=== PATIENT | female | born 2000 | race Caucasian/White ===

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

== ENCOUNTER 2018-02-06 23:18 | Emergency (ER) | payer MEDICAID ==
[2018-02-06 23:52] VITALS: BP 146/97; PULSE 111; O2SAT 100
--- NOTE | 2018-02-06 23:53 | ERPHSYRPT ---
- History of Present Illness Time Seen by Provider: 02/06/18 23:48 Source: patient, other (friend) Exam Limitations: no limitations Physician History: The patient is a at 8 weeks complaining of mild abdominal cramping on the left side with some vaginal bleeding yesterday and passing of a few clots today. She denies nausea or vomiting. She has had OB care with an ultrasound done on 01/17/18 and another one done on 02/02/18. Tonight she is in no distress. Timing/Duration: yesterday, gradual onset, worse Activites at Onset: none Quality: cramping Onset Location: pelvic pain Pain Radiation: none Severity of Pain-Max: mild Severity of Pain-Current: mild Sexual intercourse history: other () Modifying Factors: Improves With: nothing Associated Symptoms: , vaginal discharge Allergies/Adverse Reactions: codeine Allergy (Mild, Verified 02/06/18 23:52) Swelling Home Medications: No Reportable Medications [No Reported Medications] 02/06/18 [History] Hx Tetanus, Diphtheria Vaccination/Date Given: Yes Hx Influenza Vaccination/Date Given: Yes Hx Pneumococcal Vaccination/Date Given: No - Review of Systems Constitutional: No Fever, No Chills Eyes: No Symptoms Ears, Nose, & Throat: No Symptoms Respiratory: No Cough, No Dyspnea Cardiac: No Chest Pain, No Edema, No Syncope Abdominal/Gastrointestinal: Abdominal Pain, No Nausea, No Vomiting, No Diarrhea Genitourinary Symptoms: Vaginal Bleeding, No Dysuria Musculoskeletal: No Back Pain, No Neck Pain Skin: No Rash Neurological: No Dizziness, No Focal Weakness, No Sensory Changes Psychological: No Symptoms Endocrine: No Symptoms Hematologic/Lymphatic: No Symptoms Immunological/Allergic: No Symptoms All Other Systems: Reviewed and Negative - Past Medical History Pertinent Past Medical History: No Neurological History: No Pertinent History ENT History: No Pertinent History Cardiac History: No Pertinent History Respiratory History: No Pertinent History Endocrine Medical History: No Pertinent History Musculoskeletal History: Arthritis GI Medical History: No Pertinent History History: No Pertinent History Psycho-Social History: No Pertinent History Female Reproductive Disorders: No Pertinent History Other Medical History: IRREGULAR PERIODS STARTED ON CONTROL TO HELP CONTROL THEM - Past Surgical History Past Surgical History: Yes Neuro Surgical History: No Pertinent History Cardiac: No Pertinent History Respiratory: No Pertinent History Gastrointestinal: No Pertinent History Genitourinary: No Pertinent History Musculoskeletal: No Pertinent History Female Surgical History: No Pertinent History Other Surgical History: TUBES AN INFANT. TONSILS ET ADNOIDS - Social History Smoking Status: Current every day smoker How long have you smoked: 3 years Exposure to second hand smoke: No Drug Use: none Patient Lives Alone: No - Physical Exam General Appearance: no apparent distress, alert Eye Exam: PERRL/EOMI, eyes nml inspection Ears, Nose, Throat Exam: normal ENT inspection, TMs normal, pharynx normal, moist mucous membranes Neck Exam: normal inspection, non-tender, supple, full range of motion Respiratory Exam: normal breath sounds, lungs clear, No respiratory distress Cardiovascular Exam: regular rate/rhythm, normal heart sounds, normal peripheral pulses Gastrointestinal/Abdomen Exam: soft, No tenderness, No mass Pelvic Exam: not done Rectal Exam: not done Back Exam: normal inspection, normal range of motion, No CVA tenderness, No vertebral tenderness Extremity Exam: normal inspection, normal range of motion, pelvis stable Neurologic Exam: alert, oriented x 3, cooperative, manager meeting II-XII nml as tested, normal mood/affect, sensation nml, No motor deficits Skin Exam: normal color, warm, dry Lymphatic Exam: No adenopathy SpO2 Interpretation: normal Oxygen Delivery: Room Air - Progress Progress Note: 02/06/18 23:52 I reviewed the transvaginal ultrasound report dated 02/02/18. In that report there is mention of the review his ultrasound done on 01/17/18. On 01/17/18 the gestational sac was consistent with the date of 5 weeks 5 days. On 02/02/18 the gestational sac was consistent with the date of 6 weeks 1 day, with no significant change in the size of the gestational sac. No heart beat was seen. The patient was not aware of this finding. This was an intrauterine finding. Counseled pt/family regarding: diagnosis, need for follow-up, rad results - Departure Time of Disposition: 23:53 Departure Disposition: Home Clinical Impression: Threatened spontaneous Condition: Stable Critical Care Time: No Referrals: DARLINE CHINO MD [Primary Care Provider] - Additional Instructions: Based upon the ultrasound findings of 01/17/18 and 02/02/18 and the clinical findings today of passage of blood clots, U likely are in the process of undergoing a spontaneous . A quantitative hCG was performed tonight. Call Dr. Chino in the morning. Take Tylenol as needed for pain.
[2018-02-07 01:12] LABS: Appearance HAZY (CLEAR); Bilirubin NEGATIVE (NEGATIVE); Blood 250 Ery/ul (0-5); Glucose NEGATIVE (NEGATIVE); Ketones NEGATIVE (NEGATIVE); Leukocyte Esterase 1+ (NEGATIVE); Nitrite NEGATIVE (NEGATIVE); Protein,Urine Dip TRACE (Negative); Urobilinogen NORMAL mg/dL (0-1)
[2018-02-07 01:13] LABS: Bacteria FEW /HPF (NEGATIVE); Epithelial Cells MODERATE /HPF (FEW); RBC 25-50 /HPF (0-2)
== END 2018-02-07 00:55 | disposition home or self-care (01) ==
LOC: ED 23:18
DX: O20.0 Threatened abortion (principal); Z3A.01 Less than 8 weeks gestation of pregnancy
CPT/HCPCS: 81000; 87086; 99283

== ENCOUNTER 2018-02-28 22:19 | Emergency (ER) | payer OTHER ==
[2018-02-28 22:37] VITALS: BP 153/96; PULSE 80; O2SAT 99
--- NOTE | 2018-02-28 22:50 | ERPHSYRPT ---
- History of Present Illness Time Seen by Provider: 02/28/18 22:41 Source: patient Exam Limitations: no limitations Patient Subjective Stated Complaint: pt states she has been haivng mid to lower back pain for 3-4 days. denies radiation to either leg. Triage Nursing Assessment: pt alert and oriented. answers qeustions approp. pt ambulatory with steady gait noted. respirations nonlabored with lungs cta. skin pink warm and dry. pt denies numbness and tingling in ext at this time. strength bilat wnl. Physician History: 17-year-old white female with history of irregular menstrual periods, anemia Patient arrives with complaint of pain in the low lumbar region midline symptoms for 3-4 days denies obvious injuries. She states she had a fever yesterday. No nausea no vomiting no urinary symptoms. Patient did have a recent miscarriage 3 weeks ago. Past medical history includes irregular periods, anemia. Past surgical history includes , tonsillectomy and myringotomy tubes Timing/Duration: day(s) (3-4 days) Severity: moderate Modifying Factors: Improves With: movement Associated Symptoms: fever (fever yesterday), No nausea, No vomiting, No abdominal pain, No shortness of breath, No heartburn, No diaphoresis, No cough, No chills, No chest pain, No headaches, No loss of appetite, No malaise, No rash , No syncope, No seizure, No weakness Allergies/Adverse Reactions: codeine Allergy (Severe, Verified 02/28/18 22:41) Difficulty Breathing Hx Tetanus, Diphtheria Vaccination/Date Given: Yes Hx Influenza Vaccination/Date Given: Yes Hx Pneumococcal Vaccination/Date Given: No Immunizations Up to Date: Yes - Review of Systems Constitutional: Fever (fever yesterday), No Chills Eyes: No Symptoms Ears, Nose, & Throat: No Symptoms Respiratory: No Cough, No Dyspnea Cardiac: No Chest Pain, No Edema, No Syncope Abdominal/Gastrointestinal: No Abdominal Pain, No Nausea, No Vomiting, No Diarrhea Genitourinary Symptoms: No Dysuria Musculoskeletal: Back Pain Skin: No Rash Neurological: No Dizziness, No Focal Weakness, No Sensory Changes Psychological: No Symptoms Endocrine: No Symptoms All Other Systems: Reviewed and Negative - Past Medical History Pertinent Past Medical History: No Neurological History: No Pertinent History ENT History: No Pertinent History Cardiac History: No Pertinent History Respiratory History: No Pertinent History Endocrine Medical History: No Pertinent History Musculoskeletal History: No Pertinent History GI Medical History: No Pertinent History History: No Pertinent History Psycho-Social History: No Pertinent History Female Reproductive Disorders: No Pertinent History Other Medical History: IRREGULAR PERIODS STARTED ON CONTROL TO HELP CONTROL THEM, anemia - Past Surgical History Past Surgical History: Yes Neuro Surgical History: No Pertinent History Cardiac: No Pertinent History Respiratory: No Pertinent History Gastrointestinal: No Pertinent History Genitourinary: No Pertinent History Musculoskeletal: No Pertinent History Female Surgical History: No Pertinent History Other Surgical History: TUBES AN . TONSILS ET ADNOIDS - Social History Smoking Status: Current every day smoker How long have you smoked: 3 years Exposure to second hand smoke: Yes Drug Use: none Patient Lives Alone: No - Female History Hx Last Menstrual Period: none since miscarriage approx 3 weeks ago Hx Now: No - Nursing Vital Signs Nursing Vital Signs: Initial Vital Signs Temperature 98.2 F 02/28/18 22:27 Pulse Rate 80 02/28/18 22:27 Respiratory Rate 18 02/28/18 22:27 Blood Pressure 153/96 02/28/18 22:27 O2 Sat by Pulse Oximetry 99 02/28/18 22:27 Pain Scale Pain Intensity 7 - Physical Exam General Appearance: no apparent distress, alert Eye Exam: PERRL/EOMI, eyes nml inspection Ears, Nose, Throat Exam: normal ENT inspection, TMs normal, pharynx normal, moist mucous membranes Neck Exam: normal inspection, non-tender, supple, full range of motion Respiratory Exam: normal breath sounds, lungs clear, No respiratory distress Cardiovascular Exam: regular rate/rhythm, normal heart sounds, normal peripheral pulses Extremity Exam: normal range of motion, tenderness (mild tenderness with palpation over vertebral column lumbar region full range of motion without pain) Neurologic Exam: alert, oriented x 3, cooperative, wing commander II-XII nml as tested, normal mood/affect, nml cerebellar function, nml station & gait, sensation nml, No motor deficits Skin Exam: normal color, warm, dry, No rash SpO2 Interpretation: normal (99%) SpO2: 99 Oxygen Delivery: Room Air - Course Nursing assessment & vital signs reviewed: Yes Ordered Tests: Active Orders 24 hr Category Date Time Status HCG,QUALITATIVE URINE Stat Lab 02/28/18 22:37 Completed UA W/ MICROSCOPIC Stat Lab 02/28/18 22:37 Completed Medication Summary Discontinued Medications Generic Name Dose Route Start Last Admin Trade Name [place] PRN Reason Stop Dose Admin Ketorolac Tromethamine 60 mg 02/28/18 23:30 Toradol 30 Mg Injection IM 02/28/18 23:31 STAT ONE Lab/Rad Data: Laboratory Results 02/28/18 02/28/18 Range/Units 22:37 22:37 Ur Collection Type CLEAN CATCH Urine Color YELLOW (YELLOW) Urine Appearance SLIGHTLY CLOUDY (CLEAR) Urine pH 6.5 (5-6) Ur Specific [place] 1.020 (1.005-1.025) Urine Protein NEGATIVE (Negative) Urine Ketones NEGATIVE (NEGATIVE) Urine Blood NEGATIVE (0-5) Jose Armando/ul Urine Nitrite NEGATIVE (NEGATIVE) Urine Bilirubin NEGATIVE (NEGATIVE) Urine Urobilinogen 1 (0-1) mg/dL Ur Leukocyte Esterase 1+ (NEGATIVE) Urine Microscopic WBC 2-5 (0-5) /HPF Ur Epithelial Cells MODERATE (FEW) /HPF Amorphous Crystals FEW (NEGATIVE) /HPF Urine Bacteria FEW (NEGATIVE) /HPF Urine Mucus SLIGHT (NEGATIVE) /HPF Urine Culture Reflexed NO (NO) Urine Glucose NEGATIVE (NEGATIVE) mg/dL Urine HCG, Qual NEGATIVE (Negative) Specimen Received 02/28/18 2300 - Progress Progress: improved Progress Note: 02/28/18 23:55 17-year-old white female arrives with complaint of midline low back pain for 3- 4 days. She does not have any obvious injury urine is normal hCG is negative. Patient with normal neurologic exam and full range of motion to extremities. Will go ahead and place patient on Flexeril 10 mg orally 3 times a day #15. Patient to take Tylenol every 4 hours or Motrin every 6 hours as needed for pain. 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 - Departure Time of Disposition: 23:56 Departure Disposition: Home Clinical Impression: Back pain Qualifiers: Back pain location: low back pain Chronicity: acute Back pain laterality: midline Sciatica presence: without sciatica Qualified Code(s): M54.5 - Low back pain Lumbar strain Qualifiers: Encounter type: initial encounter Qualified Code(s): S39.012A - Strain of muscle, fascia and tendon of lower back, initial encounter Condition: Fair Critical Care Time: No Referrals: DARLINE CHINO MD [Primary Care Provider] - Instructions: Low Back Pain (DC) Additional Instructions: Return home. Flexeril as prescribed. Tylenol every 4 hours or Motrin every 6 hours as needed for pain. Follow-up with your family doctor if symptoms are worse, no better in 48 - 72 hours, or persist longer than one week. Return for acute distress or for severe symptoms. Prescriptions: Cyclobenzaprine HCl [Flexeril] 10 mg PO TID #15 tablet
[2018-02-28 23:44] LABS: Amourphous Crystal FEW /HPF (NEGATIVE); Appearance SLIGHTLY CLOUDY (CLEAR); Bacteria FEW /HPF (NEGATIVE); Bilirubin NEGATIVE (NEGATIVE); Blood NEGATIVE Ery/ul (0-5); Epithelial Cells MODERATE /HPF (FEW); Glucose NEGATIVE (NEGATIVE); Ketones NEGATIVE (NEGATIVE); Leukocyte Esterase 1+ (NEGATIVE); Mucus SLIGHT /HPF (NEGATIVE); Nitrite NEGATIVE (NEGATIVE); Ph 6.5 (5-6); Protein,Urine Dip NEGATIVE (Negative); Urobilinogen 1 mg/dL (0-1)
[2018-02-28] MEDS ORDERED: TORAdol 30 mg Injection ONE (23:54)
[2018-02-28] MEDS ORDERED: Cyclobenzaprine 10 MG ONE (23:57)
[2018-02-28] MEDS: Cyclobenzaprine 10 MG PO ONE (23:58)
[2018-02-28] MEDS: TORAdol 30 mg Injection IM ONE (23:59)
== END 2018-03-01 00:21 | disposition home or self-care (01) ==
LOC: ED 22:19
DX: S39.012A Strain of muscle, fascia and tendon of lower back, initial encounter (principal); M54.5 Low back pain; Z72.0 Tobacco use; X50.0XXA Overexertion from strenuous movement or load, initial encounter; X50.3XXA Overexertion from repetitive movements, initial encounter; Y92.210 Daycare center as the place of occurrence of the external cause
CPT/HCPCS: 81000; 84703; 96372; 99284; J1885; A9270-GY

== ENCOUNTER 2018-03-03 00:29 | Emergency (ER) | payer MEDICAID, OTHER ==
[2018-03-03 00:45] VITALS: O2SAT 100
--- NOTE | 2018-03-03 01:05 | ERPHSYRPT ---
- History of Present Illness Time Seen by Provider: 03/03/18 01:00 Source: patient Exam Limitations: no limitations Patient Subjective Stated Complaint: pain in middle of back that radiates to the right side Triage Nursing Assessment: Pt c/o pain that is in the middle of ther back that radiates to the right side, reports passing out twice earlier today due to the pain, was in this ED on 03/01/2018 for the same problem, miscarriage earlier this month, reports that she is anemic Physician History: 17 y/o white female presents with passing out twice at work in the last 24 hours due to pain in her back that radiates to the right side. pt had a miscarriage earlier this month. pt states she is chronically anemic. pt here on 03/01/18 dx and tx for back pain with flexeril. pt stated flexeril making her vomit. pt states she could not get into her pcp for a month. told to go to ER if sx worsens. Timing/Duration: yesterday Method of Injury: other (no injury.) Back Pain Location: T-spine Severity of Pain-Max: mild Severity of Pain-Current: mild Modifying Factors: Improves With: other (laying flat) Associated Symptoms: nausea, No fever, No loss of bowel control, No light- headedness, No dizziness Previous symptoms: same symptoms as today Allergies/Adverse Reactions: codeine Allergy (Severe, Verified 03/03/18 00:45) Difficulty Breathing Penicillins Allergy (Verified 03/03/18 00:45) Hx Tetanus, Diphtheria Vaccination/Date Given: Yes Hx Influenza Vaccination/Date Given: Yes Hx Pneumococcal Vaccination/Date Given: No - Review of Systems Constitutional: No Symptoms, Fever, Chills Eyes: No Symptoms Ears, Nose, & Throat: No Symptoms Respiratory: No Symptoms, No Cough, No Dyspnea, No Stridor, No Wheezing Cardiac: No Symptoms Abdominal/Gastrointestinal: No Symptoms, Nausea, Vomiting, No Abdominal Pain, No Diarrhea Genitourinary Symptoms: No Symptoms, No Dysuria, No Frequency, No Hematuria Musculoskeletal: Back Pain, No Neck Pain, No Fall, No Injury Skin: No Symptoms Neurological: No Symptoms, Other (passed out twice at work), No Dizziness, No Focal Weakness, No Gait Changes Psychological: No Symptoms Endocrine: No Symptoms Hematologic/Lymphatic: No Symptoms Immunological/Allergic: No Symptoms All Other Systems: Reviewed and Negative - Past Medical History Pertinent Past Medical History: No Neurological History: No Pertinent History ENT History: No Pertinent History Cardiac History: No Pertinent History Respiratory History: No Pertinent History Endocrine Medical History: No Pertinent History Musculoskeletal History: No Pertinent History GI Medical History: No Pertinent History History: No Pertinent History Psycho-Social History: No Pertinent History Female Reproductive Disorders: No Pertinent History Other Medical History: IRREGULAR PERIODS STARTED ON CONTROL TO HELP CONTROL THEM, anemia - Past Surgical History Past Surgical History: Yes Neuro Surgical History: No Pertinent History Cardiac: No Pertinent History Respiratory: No Pertinent History Gastrointestinal: No Pertinent History Genitourinary: No Pertinent History Musculoskeletal: No Pertinent History Female Surgical History: No Pertinent History Other Surgical History: TUBES AN . TONSILS ET ADNOIDS - Social History Smoking Status: Current every day smoker How long have you smoked: 3 years Exposure to second hand smoke: Yes Drug Use: none Patient Lives Alone: No - Female History Hx Last Menstrual Period: recently miscarried Hx Now: No - Nursing Vital Signs Nursing Vital Signs: Initial Vital Signs Temperature 98.6 F 03/03/18 00:33 Pulse Rate 92 H 03/03/18 00:33 Blood Pressure 137/89 03/03/18 00:33 O2 Sat by Pulse Oximetry 100 03/03/18 00:33 Pain Scale Pain Intensity [Right Medial 9 Back] Pain Intensity 9 - Physical Exam General Appearance: no apparent distress, alert, anxiety Eye Exam: PERRL/EOMI, eyes nml inspection Ears, Nose, Throat Exam: normal ENT inspection Neck Exam: normal inspection, non-tender, supple, full range of motion Respiratory Exam: normal breath sounds, lungs clear, airway intact, No chest tenderness, No respiratory distress Cardiovascular Exam: regular rate/rhythm, normal heart sounds, normal peripheral pulses Gastrointestinal Exam: soft, normal bowel sounds, No tenderness, No guarding, No rebound Pelvic Exam: not done Rectal Exam: deferred Back Exam: normal inspection, normal range of motion, point tenderness, No CVA tenderness, No vertebral tenderness, No muscle spasm Extremity Exam: normal inspection, normal range of motion, pelvis stable Neurologic Exam: alert, oriented x 3, cooperative, 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, normal mood/affect, nml cerebellar function, nml station & gait, sensation nml Skin Exam: normal color, warm, dry Lymphatic Exam: No adenopathy SpO2 Interpretation: normal SpO2: 100 Oxygen Delivery: Room Air - Course Nursing assessment & vital signs reviewed: Yes Ordered Tests: Active Orders 24 hr Category Date Time Status Clean Catch Urine Specimen STAT Care 03/03/18 01:37 Active CULTURE,URINE Routine Lab 03/03/18 01:30 Received UA W/ MICROSCOPIC Stat Lab 03/03/18 01:38 Completed Medication Summary Discontinued Medications Generic Name Dose Route Start Last Admin Trade Name Freq PRN Reason Stop Dose Admin Promethazine HCl 12.5 mg 03/03/18 02:11 03/03/18 02:21 Phenergan 25 Mg PO 03/03/18 02:12 12.5 mg STAT ONE Administration Promethazine HCl Confirm 03/03/18 02:20 Phenergan 25 Mg Administered 03/03/18 02:21 Dose 25 mg .ROUTE .STK-MED ONE Lab/Rad Data: Laboratory Results 03/03/18 Range/Units 01:38 Ur Collection Type VOID Urine Color LT.YELLOW (YELLOW) Urine Appearance HAZY (CLEAR) Urine pH 7.0 (5-6) Ur Specific [place] 1.005 (1.005-1.025) Urine Protein NEGATIVE (Negative) Urine Ketones NEGATIVE (NEGATIVE) Urine Blood NEGATIVE (0-5) Jose Armando/ul Urine Nitrite NEGATIVE (NEGATIVE) Urine Bilirubin NEGATIVE (NEGATIVE) Urine Urobilinogen NORMAL (0-1) mg/dL Ur Leukocyte Esterase 1+ (NEGATIVE) Urine Microscopic WBC 10-15 (0-5) /HPF Ur Epithelial Cells MANY (FEW) /HPF Urine Bacteria MODERATE (NEGATIVE) /HPF Urine Glucose NEGATIVE (NEGATIVE) mg/dL Specimen Received 03/03/18 0230 - Progress Progress: improved, re-examined Progress Note: 03/03/18 03:06 reviewed ua report with pt. pt refusing repeat blood draw Counseled pt/family regarding: lab results, diagnosis, need for follow-up - Departure Time of Disposition: 03:08 Departure Disposition: Home Clinical Impression: UTI (urinary tract infection) Condition: Stable Critical Care Time: No Referrals: DARLINE CHINO MD [Primary Care Provider] - Additional Instructions: drink plenty of fluids. follow up with primary doctor for further management Prescriptions: Promethazine HCl 25 mg [Phenergan 25 mg] 25 mg PO Q8H PRN PRN #10 tablet PRN Reason: Nausea Ciprofloxacin [Cipro 500 MG] 500 mg PO BID #14 tablet
[2018-03-03] MEDS ORDERED: PHENERGAN 25 MG PO ONE (02:11)
[2018-03-03] MEDS ORDERED: PHENERGAN 25 MG ONE (02:20)
[2018-03-03 02:44] LABS: Appearance HAZY (CLEAR); Bilirubin NEGATIVE (NEGATIVE); Blood NEGATIVE Ery/ul (0-5); Glucose NEGATIVE (NEGATIVE); Ketones NEGATIVE (NEGATIVE); Leukocyte Esterase 1+ (NEGATIVE); Nitrite NEGATIVE (NEGATIVE); Protein,Urine Dip NEGATIVE (Negative); Specific Gravity 1.005 (1.005-1.025); Urobilinogen NORMAL mg/dL (0-1)
[2018-03-03 02:45] LABS: Bacteria MODERATE /HPF (NEGATIVE); Epithelial Cells MANY /HPF (FEW)
[2018-03-03] MEDS ORDERED: Cipro 500 MG PO ONE (03:05)
[2018-03-03] MEDS ORDERED: Cipro 500 MG ONE (03:09)
[2018-03-03 03:15] VITALS: BP 142/80; PULSE 65
== END 2018-03-03 03:18 | disposition home or self-care (01) ==
LOC: ED 00:29
DX: N39.0 Urinary tract infection, site not specified (principal)
CPT/HCPCS: 81000; 87086; 99283; A9270-GY

== ENCOUNTER 2018-03-18 21:09 | Emergency (ER) | payer OTHER ==
[2018-03-18 21:26] VITALS: BP 156/93
--- NOTE | 2018-03-18 21:30 | ERPHSYRPT ---
- History of Present Illness Time Seen by Provider: 03/18/18 21:37 Patient Subjective Stated Complaint: pt states that she is suicidal since her miscarriage approximately a "month or two ago". pt states that after her miscarriage that people began starting rumors that she "purposely killed the baby". pt has flat affect. denies having a plan. denies homicidal thoughts. Triage Nursing Assessment: see above Physician History: pt states that she is suicidal since her miscarriage approximately a "month or two ago". pt states that after her miscarriage that people began starting rumors that she "purposely killed the baby". pt has flat affect. denies having a plan. denies homicidal thoughts. Timing/Duration: week(s) Severity of Symptoms-Max: moderate Severity of Symptoms-Current: moderate Context related to: other (recent miscarriage a month ago) Associated Symptoms: depressed, suicidal ideation Previous symptoms: no prior history Allergies/Adverse Reactions: codeine Allergy (Severe, Verified 03/03/18 00:45) Difficulty Breathing Penicillins Allergy (Verified 03/03/18 00:45) Hx Tetanus, Diphtheria Vaccination/Date Given: Yes Hx Influenza Vaccination/Date Given: Yes Hx Pneumococcal Vaccination/Date Given: No Immunizations Up to Date: Yes - Past Medical History Pertinent Past Medical History: No Neurological History: No Pertinent History ENT History: No Pertinent History Cardiac History: No Pertinent History Respiratory History: No Pertinent History Endocrine Medical History: No Pertinent History Musculoskeletal History: No Pertinent History GI Medical History: No Pertinent History History: No Pertinent History Psycho-Social History: No Pertinent History Female Reproductive Disorders: No Pertinent History Other Medical History: IRREGULAR PERIODS STARTED ON CONTROL TO HELP CONTROL THEM, anemia, UTI - Past Surgical History Past Surgical History: Yes Neuro Surgical History: No Pertinent History Cardiac: No Pertinent History Respiratory: No Pertinent History Gastrointestinal: No Pertinent History Genitourinary: No Pertinent History Musculoskeletal: No Pertinent History Female Surgical History: No Pertinent History Other Surgical History: TUBES AN . TONSILS ET ADNOIDS - Social History Smoking Status: Current every day smoker How long have you smoked: 3 years Exposure to second hand smoke: Yes Drug Use: none Patient Lives Alone: No - Female History Hx Last Menstrual Period: 03/09/18 Hx Now: No - Review of Systems Constitutional: No Fever, No Chills Eyes: No Symptoms Ears, Nose, & Throat: No Symptoms Respiratory: No Cough, No Dyspnea Cardiac: No Chest Pain, No Edema, No Syncope Abdominal/Gastrointestinal: No Abdominal Pain, No Nausea, No Vomiting, No Diarrhea Genitourinary Symptoms: No Dysuria Musculoskeletal: No Back Pain, No Neck Pain Skin: No Rash Neurological: No Dizziness, No Focal Weakness, No Sensory Changes Psychological: No Symptoms Endocrine: No Symptoms All Other Systems: Reviewed and Negative - Nursing Vital Signs Nursing Vital Signs: Initial Vital Signs Temperature 99.0 F 03/18/18 21:09 Pulse Rate 112 H 03/18/18 21:09 Respiratory Rate 16 03/18/18 21:09 Blood Pressure 156/93 03/18/18 21:09 O2 Sat by Pulse Oximetry 99 03/18/18 21:09 Pain Scale Pain Intensity 0 - Physical Exam General Appearance: no apparent distress Eyes, Ears, Nose, Throat Exam: normal ENT inspection, moist mucous membranes Neck Exam: normal inspection, non-tender, supple Respiratory Exam: normal breath sounds, lungs clear, No respiratory distress Cardiovascular Exam: regular rate/rhythm, No edema Gastrointestinal/Abdominal Exam: soft, No tenderness, No distention Extremities Exam: normal inspection, normal range of motion, No evidence of injury, No edema Current Suicidality: has suicide plan Neurological Exam: alert, 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, oriented x 3, depressed affect, flat Appearance: impaired insight Behavior/Eye Contact/Speech: alert & cooperative Skin Exam: normal color, warm, dry, No rash SpO2: 99 Oxygen Delivery: Room Air - Course Nursing assessment & vital signs reviewed: Yes Ordered Tests: Active Orders 24 hr Category Date Time Status Psychiatric Evaluation STAT Care 03/18/18 21:28 Active ACETAMINOPHEN Stat Lab 03/18/18 22:07 Completed CBC W DIFF Stat Lab 03/18/18 22:07 Completed CMP Stat Lab 03/18/18 22:07 Completed ETHYL ALCOHOL Stat Lab 03/18/18 22:07 Completed HCG QUALITATIVE,SERUM Stat Lab 03/18/18 22:07 Completed SALICYLATE Stat Lab 03/18/18 22:07 Completed Urine Triage Profile Stat Lab 03/18/18 22:34 Completed Lab/Rad Data: Laboratory Result Diagrams 03/18/18 22:07 03/18/18 22:07 Laboratory Results 03/18/18 03/18/18 03/18/18 Range/Units 22:34 22:07 22:07 WBC (4.0-10.5) K/mm3 RBC (4.1-5.4) M/mm3 Hgb (12.0-16.0) gm/dl Hct (35-47) % MCV (78-100) fl MCH (26-32) pg MCHC (32-36) g/dl RDW (11.5-14.0) % Plt Count (150-450) K/mm3 MPV (6-9.5) fl Gran % (36.0-66.0) % Eos # (Auto) (0-0.5) Absolute Lymphs (auto) (1.0-4.6) Absolute Monos (auto) (0.0-1.3) Lymphocytes % (24.0-44.0) % Monocytes % (0.0-12.0) % Eosinophils % (0.00-5.0) % Basophils % (0.0-0.4) % Absolute Granulocytes (1.4-6.9) Basophils # (0-0.4) Sodium 139 (137-145) mmol/L Potassium 4.2 (3.5-5.1) mmol/L Chloride 105 (98-107) mmol/L Carbon Dioxide 24 (22-30) mmol/L Anion Gap 14.5 (5-15) MEQ/L BUN 10 (7-17) mg/dL Creatinine 0.66 (0.52-1.04) mg/dL Estimated GFR > 60.0 ML/MIN Glucose 101 (74-106) mg/dL Calcium 9.5 (8.4-10.2) mg/dL Total Bilirubin 0.20 (0.2-1.3) mg/dL AST 15 (14-36) U/L ALT 12 (0-35) U/L Alkaline Phosphatase 85 (38-126) U/L Serum Total Protein 7.6 (6.3-8.2) g/dL Albumin 4.4 (3.5-5.0) g/dL Serum , Qual NEGATIVE (Negative) Salicylates < 1.0 L (2-20) mg/dL Urine Opiates Level NEGATIVE (NEGATIVE) Ur Methadone NEGATIVE (NEGATIVE) Acetaminophen < 10 L (10-30) ug/ml Urine Barbiturates NEGATIVE (NEGATIVE) Ur Phencyclidine (PCP) NEGATIVE (NEGATIVE) Urine Amphetamine NEGATIVE (NEGATIVE) U Benzodiazepine Level NEGATIVE (NEGATIVE) Urine Cocaine NEGATIVE (NEGATIVE) Urine Marijuana (THC) NEGATIVE (NEGATIVE) Ethyl Alcohol < 10 (0-10) mg/dL 03/18/18 Range/Units 22:07 WBC 14.1 H (4.0-10.5) K/mm3 RBC 4.79 (4.1-5.4) M/mm3 Hgb 12.1 (12.0-16.0) gm/dl Hct 39.2 (35-47) % MCV 81.8 (78-100) fl MCH 25.3 L (26-32) pg MCHC 30.9 L (32-36) g/dl RDW 16.9 H (11.5-14.0) % Plt Count 392 (150-450) K/mm3 MPV 10.2 H (6-9.5) fl Gran % 72.6 H (36.0-66.0) % Eos # (Auto) 0.16 (0-0.5) Absolute Lymphs (auto) 2.52 (1.0-4.6) Absolute Monos (auto) 1.14 (0.0-1.3) Lymphocytes % 17.9 L (24.0-44.0) % Monocytes % 8.1 (0.0-12.0) % Eosinophils % 1.1 (0.00-5.0) % Basophils % 0.3 (0.0-0.4) % Absolute Granulocytes 10.24 H (1.4-6.9) Basophils # 0.04 (0-0.4) Sodium (137-145) mmol/L Potassium (3.5-5.1) mmol/L Chloride (98-107) mmol/L Carbon Dioxide (22-30) mmol/L Anion Gap (5-15) MEQ/L BUN (7-17) mg/dL Creatinine (0.52-1.04) mg/dL Estimated GFR ML/MIN Glucose (74-106) mg/dL Calcium (8.4-10.2) mg/dL Total Bilirubin (0.2-1.3) mg/dL AST (14-36) U/L ALT (0-35) U/L Alkaline Phosphatase (38-126) U/L Serum Total Protein (6.3-8.2) g/dL Albumin (3.5-5.0) g/dL Serum , Qual (Negative) Salicylates (2-20) mg/dL Urine Opiates Level (NEGATIVE) Ur Methadone (NEGATIVE) Acetaminophen (10-30) ug/ml Urine Barbiturates (NEGATIVE) Ur Phencyclidine (PCP) (NEGATIVE) Urine Amphetamine (NEGATIVE) U Benzodiazepine Level (NEGATIVE) Urine Cocaine (NEGATIVE) Urine Marijuana (THC) (NEGATIVE) Ethyl Alcohol (0-10) mg/dL - Progress Progress: improved, re-examined Progress Note: 03/19/18 01:13 [facility] reviewed. They will follow patient as an outpatient at [facility]. According to [facility]. Patient is appears to be safe and does not appear to have active suicidal thoughts, so her sister is advised to stay with her until she follows up at [facility] on Wednesday. Counseled pt/family regarding: diagnosis, need for follow-up (at [facility] on wednesday) - Departure Time of Disposition: 01:15 Departure Disposition: Home Clinical Impression: Acute adjustment disorder with mixed anxiety and depressed mood Condition: Stable Critical Care Time: Yes Critical Care Time(excluding separately billable procedures): 30-74 minutes Referrals: DARLINE CHINO MD [Primary Care Provider] - Instructions: Bipolar Disorder (DC), Suicide Prevention, Depression Additional Instructions: JUNITO KAPOOR was seen on 03/19/18 n the Emergency Room. At that time you were treated for an emergent condition, during your visit Laboratory, Radiology and/or other procedures may have been ordered. It is very important that you follow-up with your Primary Care Physician DARLINE CHINO within the next 24- 48 hours to review your Emergency Room visit and the final results of testing that was ordered. Some test results such as Urine Cultures, Blood Cultures, and other cultures if ordered will not be finalized for 24-48 hours. If you do not have a Primary Care Provider please call the medical records department at [phone] to obtain a copy of your results or you may sign into our patient portal to obtain these results by visiting us @ [email or web address] and completing the following steps: 1. Click on the Patient Portal link 2. Click the Patient Self Enrollment Link to complete the enrollment form and entering your 3. Once the enrollment form is completed you will receive an email with a temporary ID and password at the email address you provided. 4. Next choose a user name and password. Your user name must be at least 4 characters long and your password must be at least 4 characters long. 5. Choose a security question from the list and provide your answer to the question. If you already have signed into the Health Portal you may access your Health Care Information 01/03 by the following steps: 1. Login to our website @ [email or web address] 2. Enter your original user name and password. FAQS The [facility] Health Portal is an online tool that contains your Lab Results, Radiology Reports, Visit History, Discharge Instructions and Health Summary Lab and Radiology Results will not be available for 72 hours on the portal. The Portal is a secure site, passwords are encryted and URLs are re-written so they cannot be copied and pasted. You and authorized family members are the only ones who can access your Portal. Also there is a timeout feature that protects your information if you leave the Portal page open. If you have technical difficulty please use the Contact Us link on the page this will allow you to submit any questions you have regarding the Portal or you may contact the Medical Record Department at [phone]. Please follow the instructions given to you. Please take your medication as prescribed if given. If symptoms recur or get worse, come back to the emergency room if you cannot reach your primary care physician, or call your primary care physician for an appointment. Again if your symptoms get worse, come back to the emergency room. Thanks for visiting emergency room, and let us take care of you.
[2018-03-18 22:10] LABS: BASOPHIL % 0.3 % (0.0-0.4); Basophil (Absolute #) 0.04 (0-0.4); Eosinophil % 1.1 % (0.00-5.0); Eosinophil (Absolute #) 0.16 (0-0.5); Granulocyte Absolute (ANC) 10.24 (1.4-6.9); Granulocytes % 72.6 % (36.0-66.0); Hematocrit 39.2 % (35-47); Hemoglobin 12.1 gm/dl (12.0-16.0); Lymphocyte (Absolute #) 2.52 (1.0-4.6); Lymphocytes % 17.9 % (24.0-44.0); Mean Cell Volume 81.8 fl (78-100); Mean Corpuscular Hemoglobin 25.3 pg (26-32); Mean Corpuscular Hgb Concent. 30.9 g/dl (32-36); Mean Platelet Volume 10.2 fl (6-9.5); Monocyte (Absolute #) 1.14 (0.0-1.3); Monocytes % 8.1 % (0.0-12.0); Platelet Count 392 K/mm3 (150-450); Red Blood Count 4.79 M/mm3 (4.1-5.4); Red Cell Distribution Width 16.9 % (11.5-14.0); White Blood Count 14.1 K/mm3 (4.0-10.5)
[2018-03-18 22:27] LABS: ALBUMIN 4.4 g/dL (3.5-5.0); ALKALINE PHOSPHATASE 85 U/L (38-126); ANION GAP 14.5 MEQ/L (5-15); BLOOD UREA NITROGEN 10 mg/dL (7-17); CHLORIDE 105 mmol/L (98-107); Calcium 9.5 mg/dL (8.4-10.2); Carbon Dioxide 24 mmol/L (22-30); Creatinine 1 0.66 mg/dL (0.52-1.04); Glucose 101 mg/dL (74-106); Potassium 4.2 mmol/L (3.5-5.1); SGOT/AST 15 U/L (14-36); SGPT/ALT 12 U/L (0-35); SODIUM 139 mmol/L (137-145); Total Protein 7.6 g/dL (6.3-8.2)
[2018-03-18 22:28] LABS: ACETAMINOPHEN < 10 ug/ml (10-30); ETHYL ALCOHOL < 10 mg/dL (0-10); SALICYLATE < 1.0 mg/dL (2-20)
[2018-03-18 22:51] LABS: Amphetamine,Urine NEGATIVE (NEGATIVE); Barbiturate,Urine NEGATIVE (NEGATIVE); Benzodiazepine,Urine NEGATIVE (NEGATIVE); Cocaine,Urine NEGATIVE (NEGATIVE); Methadone,Urine NEGATIVE (NEGATIVE); Opiate,Urine NEGATIVE (NEGATIVE); PCP,Urine NEGATIVE (NEGATIVE); THC,Urine NEGATIVE (NEGATIVE)
[2018-03-19 01:46] VITALS: PULSE 97; O2SAT 98
== END 2018-03-19 01:40 | disposition home or self-care (01) ==
LOC: ED 21:09
DX: F43.23 Adjustment disorder with mixed anxiety and depressed mood (principal)
CPT/HCPCS: 36415; 80053; 80307; 84703; 85025; 90791; 99284; G0481; Q3014; G0480

== ENCOUNTER 2018-08-04 13:38 | Emergency (ER) | payer OTHER | END 2018-08-04 13:56 | disposition left against medical advice (07) | LOC: ED 13:38 | DX: Z53.21 Procedure and treatment not carried out due to patient leaving prior to being seen by health care provider (principal) | CPT/HCPCS: 99281 ==

== ENCOUNTER 2018-10-08 02:01 | Emergency (ER) | payer OTHER ==
[2018-10-08 02:15] VITALS: BP 162/60
[2018-10-08] MEDS ORDERED: Sodium Chloride 0.9% 1000 ML 1,000 ML IV STA (02:26)
[2018-10-08] MEDS ORDERED: Zofran 4 MG/2 ML VIAL IV ONE (02:26)
[2018-10-08] MEDS ORDERED: TORAdol 30 mg Injection IV ONE (02:29)
[2018-10-08] MEDS ORDERED: Zofran 4 MG/2 ML VIAL ONE (02:30)
[2018-10-08] MEDS ORDERED: Sodium Chloride 0.9% 1000 ML 1,000 ML ONE (02:30)
[2018-10-08] MEDS ORDERED: TORAdol 30 mg Injection ONE (02:30)
[2018-10-08 02:34] LABS: BASOPHIL % 0.3 % (0.0-0.4); Basophil (Absolute #) 0.04 (0-0.4); Eosinophil % 1.9 % (0.00-5.0); Eosinophil (Absolute #) 0.26 (0-0.5); Granulocyte Absolute (ANC) 8.31 (1.4-6.9); Granulocytes % 59.6 % (36.0-66.0); Hemoglobin 13.6 gm/dl (12.0-16.0); Lymphocyte (Absolute #) 4.19 (1.0-4.6); Lymphocytes % 30.1 % (24.0-44.0); Mean Cell Volume 89.8 fl (78-100); Mean Corpuscular Hemoglobin 28.4 pg (26-32); Mean Corpuscular Hgb Concent. 31.6 g/dl (32-36); Mean Platelet Volume 10.8 fl (6-9.5); Monocyte (Absolute #) 1.13 (0.0-1.3); Monocytes % 8.1 % (0.0-12.0); Platelet Count 342 K/mm3 (150-450); Red Blood Count 4.79 M/mm3 (4.1-5.4); Red Cell Distribution Width 15.5 % (11.5-14.0); White Blood Count 13.9 K/mm3 (4.0-10.5)
[2018-10-08 02:46] LABS: ALBUMIN 4.5 g/dL (3.5-5.0); ALKALINE PHOSPHATASE 71 U/L (38-126); ANION GAP 14.5 MEQ/L (5-15); BLOOD UREA NITROGEN 9 mg/dL (7-17); CHLORIDE 104 mmol/L (98-107); Calcium 9.4 mg/dL (8.4-10.2); Carbon Dioxide 24 mmol/L (22-30); Creatinine 1 0.64 mg/dL (0.52-1.04); Glucose 95 mg/dL (74-106); LIPASE 65 U/L (23-300); Potassium 4.3 mmol/L (3.5-5.1); SGOT/AST 23 U/L (14-36); SGPT/ALT 13 U/L (0-35); SODIUM 138 mmol/L (137-145); Total Protein 8.4 g/dL (6.3-8.2)
[2018-10-08 03:45] LABS: Appearance SLIGHTLY CLOUDY (CLEAR); Bacteria FEW /HPF (NEGATIVE); Bilirubin NEGATIVE (NEGATIVE); Blood LARGE Ery/ul (0-5); Epithelial Cells RARE /HPF (FEW); Glucose NEGATIVE (NEGATIVE); Ketones TRACE (NEGATIVE); Leukocyte Esterase SMALL (NEGATIVE); Mucus MANY /HPF (NEGATIVE); Nitrite NEGATIVE (NEGATIVE); Protein,Urine Dip 30 (Negative); Specific Gravity 1.025 (1.005-1.025); Urobilinogen 2 mg/dL (0-1); WBC 26-50 /HPF (0-5)
[2018-10-08] MEDS ORDERED: ROCEPHIN 1 Gm-D5w 50 ml Bag** 1 G/50 ML IVPB IV STA (03:52)
[2018-10-08] MEDS ORDERED: BENADRYL 50 MG/ML IV ONE (03:57)
[2018-10-08] MEDS ORDERED: BENADRYL 50 MG/ML ONE (04:12)
[2018-10-08] MEDS ORDERED: ROCEPHIN 1 Gm-D5w 50 ml Bag** 1 G/50 ML IVPB IV ONE (04:20)
[2018-10-08 04:46] VITALS: PULSE 65; O2SAT 96
--- NOTE | 2018-10-08 05:01 | ERPHSYRPT ---
- History of Present Illness Historian: patient Exam Limitations: no limitations Patient Subjective Stated Complaint: Right sided rib pain Triage Nursing Assessment: Patient ambulated back to ED and transferred self to bed. Patient A+O X 3. Patient complains of right sided rib and back pain 05/18. Patient denies injury to area. Patient states she was sitting in a chair on and started having stabbing pains to right side of ribs/back. Patient' s lungs clear a/p carlito. Abdomen soft and round with BS X2. No visible injuries or bruises noted to right side of ribs/back. Physician History: Pt is a 18 y/o female that presented to the ED with right sided pain in the RUQ and CVA. Pt stated, that janie started a couple of days ago, and increased. Now she is having vomiting episodes with the pain, and fever and chills, when the pain is getting worse. Pt denies dysuria, frequancy or urgency. She denies prior surgeries. Timing/Duration: day(s) Activities at Onset: none Quality: cramping, sharpness, stabbing Abdominal Pain Onset Location: RUQ, flank (on the right) Pain Radiation: RUQ, flank Severity of Pain-Max: moderate Severity of Pain-Current: moderate Modifying Factors: Improves With: analgesics Associated Symptoms: fever/chills, nausea, vomiting, weakness Previous symptoms: no prior history Allergies/Adverse Reactions: codeine Allergy (Severe, Verified 10/08/18 02:06) Difficulty Breathing Penicillins Allergy (Verified 10/08/18 02:06) Hx Tetanus, Diphtheria Vaccination/Date Given: Yes Hx Influenza Vaccination/Date Given: No Hx Pneumococcal Vaccination/Date Given: No Immunizations Up to Date: Yes - Review of Systems Constitutional: Fever, Chills, Fatigue, Malaise Eyes: No Symptoms Ears, Nose, & Throat: No Symptoms Respiratory: No Cough, No Dyspnea Cardiac: No Chest Pain, No Edema, No Syncope Abdominal/Gastrointestinal: Abdominal Pain, Nausea Genitourinary Symptoms: No Dysuria Musculoskeletal: No Back Pain, No Neck Pain Neurological: No Dizziness, No Focal Weakness, No Sensory Changes - Past Medical History Pertinent Past Medical History: No Neurological History: No Pertinent History ENT History: No Pertinent History Cardiac History: No Pertinent History Respiratory History: No Pertinent History Endocrine Medical History: No Pertinent History Musculoskeletal History: No Pertinent History GI Medical History: No Pertinent History History: No Pertinent History Psycho-Social History: No Pertinent History Female Reproductive Disorders: No Pertinent History Other Medical History: IRREGULAR PERIODS STARTED ON CONTROL TO HELP CONTROL THEM, anemia, UTI - Past Surgical History Past Surgical History: Yes Neuro Surgical History: No Pertinent History Cardiac: No Pertinent History Respiratory: No Pertinent History Gastrointestinal: No Pertinent History Genitourinary: No Pertinent History Musculoskeletal: No Pertinent History Female Surgical History: No Pertinent History Other Surgical History: TUBES AN INFANT. TONSILS ET ADNOIDS - Social History Smoking Status: Current every day smoker How long have you smoked: 5 years Exposure to second hand smoke: Yes Drug Use: none Patient Lives Alone: No - Female History Hx Last Menstrual Period: Constantly bleeding Hx Now: No - Nursing Vital Signs Nursing Vital Signs: Initial Vital Signs Temperature 98.1 F 10/08/18 02:08 Pulse Rate 89 10/08/18 02:08 Respiratory Rate 18 10/08/18 02:08 Blood Pressure 162/60 10/08/18 02:08 O2 Sat by Pulse Oximetry 100 10/08/18 02:08 Pain Scale Pain Intensity 10 - Physical Exam General Appearance: moderate distress Eye Exam: PERRL/EOMI, eyes nml inspection Ears, Nose, Throat Exam: normal ENT inspection, pharynx normal, moist mucous membranes Neck Exam: normal inspection, non-tender, supple, full range of motion Respiratory Exam: normal breath sounds, lungs clear, No respiratory distress Cardiovascular Exam: regular rate/rhythm, normal heart sounds Gastrointestinal/Abdomen Exam: soft, normal bowel sounds, tenderness (RUQ, and CVA on the R) Back Exam: CVA tenderness (On R) Extremity Exam: normal inspection, normal range of motion, pelvis stable Neurologic Exam: alert, oriented x 3, cooperative, normal mood/affect, nml cerebellar function, sensation nml, No motor deficits SpO2: 96 - Course Nursing assessment & vital signs reviewed: Yes Ordered Tests: Active Orders 24 hr Category Date Time Status IV Insertion STAT Care 10/08/18 02:26 Active ABDOMEN AND PELVIS W CONTRAST [CT] Stat Exams 10/08/18 02:27 Taken CBC W DIFF Stat Lab 10/08/18 02:15 Completed CMP Stat Lab 10/08/18 02:15 Completed CULTURE,URINE Stat Lab 10/08/18 03:24 Received HCG,QUALITATIVE URINE Stat Lab 10/08/18 03:24 Completed LIPASE Stat Lab 10/08/18 02:15 Completed UA W/RFX UR CULTURE Stat Lab 10/08/18 03:24 Completed Medication Summary Discontinued Medications Generic Name Dose Route Start Last Admin Trade Name Bairon PRN Reason Stop Dose Admin Diphenhydramine HCl 50 mg 10/08/18 03:57 10/08/18 04:18 Benadryl 50 Mg/Ml IV 10/08/18 03:58 50 mg STAT ONE Administration Diphenhydramine HCl Confirm 10/08/18 04:12 Benadryl 50 Mg/Ml Administered 10/08/18 04:13 Dose 50 mg .ROUTE .STK-MED ONE Sodium Chloride 1,000 mls @ 999 mls/hr 10/08/18 02:26 10/08/18 03:45 Sodium Chloride 0.9% 1000 Ml IV 10/08/18 03:26 Infused .Q1H1M STA Infusion Sodium Chloride Confirm 10/08/18 02:30 Sodium Chloride 0.9% 1000 Ml Administered 10/08/18 02:31 Dose 1,000 mls @ ud .ROUTE .STK-MED ONE Ceftriaxone Sodium/Dextrose 1 g in 50 mls @ 100 mls/hr 10/08/18 03:52 05:19 Rocephin 1 Gm-D5w 50 Ml Bag IV 10/08/18 04:21 Infused STAT STA Infusion Ceftriaxone Sodium/Dextrose Confirm 10/08/18 04:20 Rocephin 1 Gm-D5w 50 Ml Bag Administered 10/08/18 04:21 Dose 1 g in 50 mls @ ud IV .STK-MED ONE Ketorolac Tromethamine 30 mg 10/08/18 02:29 10/08/18 02:34 Toradol 30 Mg Injection IV 10/08/18 02:30 30 mg STAT ONE Administration Ketorolac Tromethamine Confirm 10/08/18 02:30 Toradol 30 Mg Injection Administered 10/08/18 02:31 Dose 30 mg .ROUTE .STK-MED ONE Ondansetron HCl 4 mg 10/08/18 02:26 10/08/18 02:35 Zofran 4 Mg/2 Ml Vial IV 10/08/18 02:27 4 mg STAT ONE Administration Ondansetron HCl Confirm 10/08/18 02:30 Zofran 4 Mg/2 Ml Vial Administered 10/08/18 02:31 Dose 4 mg .ROUTE .STK-MED ONE Lab/Rad Data: Laboratory Result Diagrams 10/08/18 02:15 10/08/18 02:15 Laboratory Results 10/08/18 10/08/18 10/08/18 Range/Units 03:24 03:24 02:15 WBC (4.0-10.5) K/mm3 RBC (4.1-5.4) M/mm3 Hgb (12.0-16.0) gm/dl Hct (35-47) % MCV (78-100) fl MCH (26-32) pg MCHC (32-36) g/dl RDW (11.5-14.0) % Plt Count (150-450) K/mm3 MPV (6-9.5) fl Gran % (36.0-66.0) % Eos # (Auto) (0-0.5) Absolute Lymphs (auto) (1.0-4.6) Absolute Monos (auto) (0.0-1.3) Lymphocytes % (24.0-44.0) % Monocytes % (0.0-12.0) % Eosinophils % (0.00-5.0) % Basophils % (0.0-0.4) % Absolute Granulocytes (1.4-6.9) Basophils # (0-0.4) Sodium 138 (137-145) mmol/L Potassium 4.3 (3.5-5.1) mmol/L Chloride 104 (98-107) mmol/L Carbon Dioxide 24 (22-30) mmol/L Anion Gap 14.5 (5-15) MEQ/L BUN 9 (7-17) mg/dL Creatinine 0.64 (0.52-1.04) mg/dL Estimated GFR > 60.0 ML/MIN Glucose 95 (74-106) mg/dL Calcium 9.4 (8.4-10.2) mg/dL Total Bilirubin 0.50 (0.2-1.3) mg/dL AST 23 (14-36) U/L ALT 13 (0-35) U/L Alkaline Phosphatase 71 (38-126) U/L Serum Total Protein 8.4 H (6.3-8.2) g/dL Albumin 4.5 (3.5-5.0) g/dL Lipase 65 (23-300) U/L Urine Color YELLOW (YELLOW) Urine Appearance SLIGHTLY CLOUDY (CLEAR) Urine pH 5.0 (5-6) Ur Specific Prole 1.025 (1.005-1.025) Urine Protein 30 (Negative) Urine Ketones TRACE (NEGATIVE) Urine Blood LARGE (0-5) Jose Armando/ul Urine Nitrite NEGATIVE (NEGATIVE) Urine Bilirubin NEGATIVE (NEGATIVE) Urine Urobilinogen 2 (0-1) mg/dL Ur Leukocyte Esterase SMALL (NEGATIVE) Urine WBC (Auto) 26-50 (0-5) /HPF Urine RBC (Auto) 3-5 (0-2) /HPF U Hyaline Cast (Auto) 3-5 (0-2) /LPF U Epithel Cells (Auto) RARE (FEW) /HPF Urine Bacteria (Auto) FEW (NEGATIVE) /HPF Urine Mucus (Auto) MANY (NEGATIVE) /HPF Urine Culture Reflexed YES (NO) Urine Glucose NEGATIVE (NEGATIVE) mg/dL Urine HCG, Qual NEGATIVE (Negative) 10/08/18 Range/Units 02:15 WBC 13.9 H (4.0-10.5) K/mm3 RBC 4.79 (4.1-5.4) M/mm3 Hgb 13.6 (12.0-16.0) gm/dl Hct 43.0 (35-47) % MCV 89.8 (78-100) fl MCH 28.4 (26-32) pg MCHC 31.6 L (32-36) g/dl RDW 15.5 H (11.5-14.0) % Plt Count 342 (150-450) K/mm3 MPV 10.8 H (6-9.5) fl Gran % 59.6 (36.0-66.0) % Eos # (Auto) 0.26 (0-0.5) Absolute Lymphs (auto) 4.19 (1.0-4.6) Absolute Monos (auto) 1.13 (0.0-1.3) Lymphocytes % 30.1 (24.0-44.0) % Monocytes % 8.1 (0.0-12.0) % Eosinophils % 1.9 (0.00-5.0) % Basophils % 0.3 (0.0-0.4) % Absolute Granulocytes 8.31 H (1.4-6.9) Basophils # 0.04 (0-0.4) Sodium (137-145) mmol/L Potassium (3.5-5.1) mmol/L Chloride (98-107) mmol/L Carbon Dioxide (22-30) mmol/L Anion Gap (5-15) MEQ/L BUN (7-17) mg/dL Creatinine (0.52-1.04) mg/dL Estimated GFR ML/MIN Glucose (74-106) mg/dL Calcium (8.4-10.2) mg/dL Total Bilirubin (0.2-1.3) mg/dL AST (14-36) U/L ALT (0-35) U/L Alkaline Phosphatase (38-126) U/L Serum Total Protein (6.3-8.2) g/dL Albumin (3.5-5.0) g/dL Lipase (23-300) U/L Urine Color (YELLOW) Urine Appearance (CLEAR) Urine pH (5-6) Ur Specific Prole (1.005-1.025) Urine Protein (Negative) Urine Ketones (NEGATIVE) Urine Blood (0-5) Jose Armando/ul Urine Nitrite (NEGATIVE) Urine Bilirubin (NEGATIVE) Urine Urobilinogen (0-1) mg/dL Ur Leukocyte Esterase (NEGATIVE) Urine WBC (Auto) (0-5) /HPF Urine RBC (Auto) (0-2) /HPF U Hyaline Cast (Auto) (0-2) /LPF U Epithel Cells (Auto) (FEW) /HPF Urine Bacteria (Auto) (NEGATIVE) /HPF Urine Mucus (Auto) (NEGATIVE) /HPF Urine Culture Reflexed (NO) Urine Glucose (NEGATIVE) mg/dL Urine HCG, Qual (Negative) - Progress Progress: unchanged Progress Note: 10/08/18 05:03 Pt presented with severe pain in RUQ and CVA on R, and N/V. Her labs did show UTI, but secondary to the presentation and leukocytosis, abdominal CT was ordered. Pt did get Ceftriaxone IV for her UTI. CT of abdomen and pelvis showed cholecystitis and intrahepatic billiary dilatation. DR Lai was consulted, and pt will be admitted to him for a cholecystectomy. 10/08/18 06:27 - Departure Time of Disposition: 06:29 Departure Disposition: Observation Clinical Impression: Cholecystitis with cholelithiasis Condition: Stable Critical Care Time: No Referrals: DARLINE CHINO MD [Primary Care Provider] -
[2018-10-08] MEDS ORDERED: Levofloxacin 500MG/100ML D5W 500 MG/100 ML BAG IV STA (06:39)
[2018-10-08] MEDS ORDERED: FLAGYL 500 MG IVPB 500 MG/100 ML BAG IV STA (06:40)
[2018-10-08] MEDS ORDERED: DILAUDID 2 MG INJECTION IV PRN (06:40)
[2018-10-08] MEDS ORDERED: Sodium Chloride 0.9% 1000 ML 1,000 ML IV SCH (06:45)
--- NOTE | 2018-10-08 09:19 | XRAY ---
Indication: Right flank/right upper quadrant pain. Elevated WBC. Multiple contiguous axial images obtained through the abdomen and pelvis using 80 cc Isovue 370 contrast only. Comparison: None Lung bases demonstrates minimal bibasilar dependent atelectasis. No infiltrate or effusion. Heart is not enlarged. Noncontrasted stomach and bowel loops appear nonobstructed. Normal appendix. Abnormal gallbladder with small gallstones, wall thickening, and pericholecystic fluid concerning for cholecystitis. Mild biliary prominence. Remaining liver, pancreas, spleen, adrenal glands, kidneys, ureters, bladder, uterus, and aorta appear unremarkable. No pathologic retroperitoneal lymphadenopathy. Osseous structures intact. No ventral or inguinal hernias. Impression: 1. Cholelithiasis with wall thickening, pericholecystic fluid, and mild biliary prominence concerning for cholecystitis. 2. Remaining CT abdomen/pelvis with contrast exam is negative. Comment: Preliminary interpretation was made by C. No discrepancy. CTDI 18.94
== END 2018-10-08 07:10 | disposition left against medical advice (07) ==
LOC: ED 02:01
DX: K80.10 Calculus of gallbladder with chronic cholecystitis without obstruction (principal); N39.0 Urinary tract infection, site not specified; D72.829 Elevated white blood cell count, unspecified
CPT/HCPCS: 36000; 36415; 74177; 80053; 81001; 83690; 84703; 85025; 87086; 96365; 96374; 96375; 99285; J0696; J1200; J1885; J2405

== ENCOUNTER 2018-10-08 13:17 | Observation (INO) | payer OTHER ==
--- NOTE | 2018-10-08 13:35 | ERPHSYRPT ---
- History of Present Illness Time Seen by Provider: 10/08/18 13:31 Historian: patient Exam Limitations: no limitations Physician History: 18 y/o white female left this ED AMA approx 6.5 hours ago. she now returns and wants admission. pt was dx with acute cholecytitis. sx not improved. Timing/Duration: today Quality: sharpness, stabbing Abdominal Pain Onset Location: RUQ Pain Radiation: no radiation Severity of Pain-Max: moderate Severity of Pain-Current: moderate Modifying Factors: Improves With: nothing Associated Symptoms: back Previous symptoms: same symptoms as today, recently seen, recently treated Allergies/Adverse Reactions: codeine Allergy (Severe, Verified 10/08/18 13:44) Difficulty Breathing Penicillins Allergy (Verified 10/08/18 13:44) Home Medications: Ethinyl Estradiol/Drospirenone [Drospirenone-Ee 3-0.02 mg Tab] 1 each PO DAILY 10/08/18 [History] Hx Tetanus, Diphtheria Vaccination/Date Given: Yes Hx Influenza Vaccination/Date Given: No Hx Pneumococcal Vaccination/Date Given: No - Review of Systems Constitutional: No Symptoms Eyes: No Symptoms Ears, Nose, & Throat: No Symptoms Respiratory: No Symptoms Cardiac: No Symptoms Abdominal/Gastrointestinal: Abdominal Pain Genitourinary Symptoms: No Symptoms Musculoskeletal: No Symptoms Skin: No Symptoms Neurological: No Symptoms Psychological: No Symptoms Endocrine: No Symptoms Hematologic/Lymphatic: No Symptoms Immunological/Allergic: No Symptoms All Other Systems: Reviewed and Negative - Past Medical History Pertinent Past Medical History: No Neurological History: No Pertinent History ENT History: No Pertinent History Cardiac History: No Pertinent History Respiratory History: No Pertinent History Endocrine Medical History: No Pertinent History Musculoskeletal History: No Pertinent History GI Medical History: No Pertinent History History: No Pertinent History Psycho-Social History: No Pertinent History Female Reproductive Disorders: No Pertinent History Other Medical History: IRREGULAR PERIODS STARTED ON CONTROL TO HELP CONTROL THEM, anemia, UTI - Past Surgical History Past Surgical History: Yes Neuro Surgical History: No Pertinent History Cardiac: No Pertinent History Respiratory: No Pertinent History Gastrointestinal: No Pertinent History Genitourinary: No Pertinent History Musculoskeletal: No Pertinent History Female Surgical History: No Pertinent History Other Surgical History: TUBES AN . TONSILS ET ADNOIDS - Social History Smoking Status: Current every day smoker How long have you smoked: 5 years Exposure to second hand smoke: Yes Drug Use: none Patient Lives Alone: No - Nursing Vital Signs Nursing Vital Signs: Initial Vital Signs Temperature 98.3 F 10/08/18 13:28 Pulse Rate 79 10/08/18 13:28 Respiratory Rate 20 10/08/18 13:28 Blood Pressure 143/97 10/08/18 13:28 O2 Sat by Pulse Oximetry 100 10/08/18 13:28 Pain Scale Pain Intensity 10 - Physical Exam General Appearance: mild distress, alert, anxiety Eye Exam: PERRL/EOMI Ears, Nose, Throat Exam: normal ENT inspection, moist mucous membranes Neck Exam: normal inspection, non-tender, supple, full range of motion Respiratory Exam: normal breath sounds, lungs clear, airway intact, No chest tenderness, No respiratory distress Cardiovascular Exam: regular rate/rhythm, normal heart sounds, normal peripheral pulses Gastrointestinal/Abdomen Exam: soft, normal bowel sounds, tenderness (ruq), guarding (ruq), No rebound Pelvic Exam: not done Rectal Exam: not done Back Exam: normal inspection, normal range of motion, vertebral tenderness, No CVA tenderness Extremity Exam: normal inspection, normal range of motion, pelvis stable Neurologic Exam: alert, oriented x 3, cooperative, mental health orderly II-XII nml as tested Skin Exam: normal color, warm, dry Lymphatic Exam: No adenopathy SpO2 Interpretation: normal O2 Delivery: Room Air - Course Nursing assessment & vital signs reviewed: Yes Ordered Tests: Active Orders 24 hr Category Date Time Status Transfer Order Routine Transfer 10/08/18 Ordered - Progress Progress: unchanged, re-examined Progress Note: 10/08/18 13:34 i will not repeat workup as a full workup was completed here 6.5 hours ago. 10/08/18 14:[address] rivero. he accepts pt to place in observation. iv cipro/flagyl, npo, ivf, consult dr. majano. repeat labs in am Counseled pt/family regarding: diagnosis - Departure Time of Disposition: 14:07 Departure Disposition: Observation Clinical Impression: Acute cholecystitis Condition: Stable Critical Care Time: No Referrals: DARLINE RIVERO MD [Primary Care Provider] -
[2018-10-08] MEDS ORDERED: Hydromorphone 1 mg/ml Ampule IV ONE (14:16)
[2018-10-08] MEDS ORDERED: Zofran 4 MG/2 ML VIAL IV ONE (14:16)
[2018-10-08] MEDS ORDERED: Zofran 4 MG/2 ML VIAL ONE (14:19)
[2018-10-08] MEDS ORDERED: Hydromorphone 1 mg/ml Ampule ONE (14:19)
[2018-10-08] MEDS ORDERED: Levofloxacin 500MG/100ML D5W 500 MG/100 ML BAG IV STA (14:26)
[2018-10-08] MEDS ORDERED: Levofloxacin 500MG/100ML D5W 500 MG/100 ML BAG IV ONE (14:34)
[2018-10-08] MEDS ORDERED: FEVERALL 650 MG PR PRN (15:07)
[2018-10-08] MEDS: Sodium Chloride 0.9% 1000 ML 1,000 ML IV SCH (15:26)
[2018-10-08] MEDS: FLAGYL 500 MG IVPB 500 MG/100 ML BAG IV SCH ×2 (15:27→21:46)
[2018-10-08] MEDS: DILAUDID 2 MG INJECTION IV PRN ×2 (16:57→20:41)
[2018-10-08] MEDS: Zofran 4 MG/2 ML VIAL IV PRN (16:59)
[2018-10-09] MEDS: Zofran 4 MG/2 ML VIAL IV PRN ×2 (00:22→07:58)
[2018-10-09] MEDS: DILAUDID 2 MG INJECTION IV PRN (00:22)
[2018-10-09] MEDS: Sodium Chloride 0.9% 1000 ML 1,000 ML IV SCH (02:31)
[2018-10-09] MEDS ORDERED: DILAUDID 2 MG INJECTION IV STA (02:52)
[2018-10-09] MEDS: DILAUDID 1 MG/1ML PCA IV PRN ×3 (03:09→17:33)
[2018-10-09] MEDS: FLAGYL 500 MG IVPB 500 MG/100 ML BAG IV SCH ×2 (05:13→15:18)
[2018-10-09 06:00] LABS: BASOPHIL % 0.2 % (0.0-0.4); Basophil (Absolute #) 0.02 (0-0.4); Eosinophil % 0.6 % (0.00-5.0); Eosinophil (Absolute #) 0.06 (0-0.5); Granulocyte Absolute (ANC) 7.45 (1.4-6.9); Granulocytes % 69.2 % (36.0-66.0); Hematocrit 35.7 % (35-47); Hemoglobin 11.1 gm/dl (12.0-16.0); Lymphocytes % 20.5 % (24.0-44.0); Mean Cell Volume 91.5 fl (78-100); Mean Corpuscular Hgb Concent. 31.1 g/dl (32-36); Mean Platelet Volume 10.6 fl (6-9.5); Monocyte (Absolute #) 1.02 (0.0-1.3); Monocytes % 9.5 % (0.0-12.0); Platelet Count 273 K/mm3 (150-450); Red Cell Distribution Width 15.5 % (11.5-14.0); White Blood Count 10.8 K/mm3 (4.0-10.5)
[2018-10-09 06:08] LABS: Mean Corpuscular Hemoglobin 28.4 pg (26-32)
[2018-10-09 06:17] LABS: AMYLASE 52 U/L (30-110); LIPASE 28 U/L (23-300)
[2018-10-09 06:22] LABS: ALBUMIN 3.4 g/dL (3.5-5.0); ALKALINE PHOSPHATASE 57 U/L (38-126); ANION GAP 14.9 MEQ/L (5-15); BLOOD UREA NITROGEN 4 mg/dL (7-17); CHLORIDE 109 mmol/L (98-107); Calcium 8.8 mg/dL (8.4-10.2); Carbon Dioxide 21 mmol/L (22-30); Creatinine 1 0.57 mg/dL (0.52-1.04); Glucose 80 mg/dL (74-106); Potassium 4.4 mmol/L (3.5-5.1); SGOT/AST 11 U/L (14-36); SGPT/ALT 9 U/L (0-35); SODIUM 140 mmol/L (137-145); Total Protein 6.5 g/dL (6.3-8.2)
--- NOTE | 2018-10-09 08:09 | PCM.HP ---
History of Present Illness - Chief Complaint Chief Complaint: cholecystitis History of Present Illness: is a 18 year old female who reported to the ER yesterday with a 3-4 day history of right upper quadrant pain and nausea, she refused admission and left ER only to return several hours later. She is tearful this morning, pain control has been an issue overnight. - Review of Systems Constitutional: No Fever, No Chills Abdominal/Gastrointestinal: Abdominal Pain, Nausea Genitourinary Symptoms: No Dysuria Skin: No Rash All Other Systems: Reviewed and Negative Medications & Allergies Home Medications: Home Medication List Ethinyl Estradiol/Drospirenone [Drospirenone-Ee 3-0.02 mg Tab] 1 each PO DAILY 10/08/18 [History Confirmed 10/08/18] Allergies/Adverse Reactions: Allergies Allergy/AdvReac Type Severity Reaction Status Date / Time codeine Allergy Severe Difficulty Verified 10/08/18 13:44 Breathing morphine Allergy Tightness Verified 10/08/18 15:17 of Throat Penicillins Allergy Verified 10/08/18 13:44 - Past Medical History Past Medical History: No Neurological History: No Pertinent History ENT History: No Pertinent History Cardiac History: No Pertinent History Respiratory History: No Pertinent History Endocrine Medical History: No Pertinent History Musculoskelatal History: No Pertinent History GI Medical History: No Pertinent History History: No Pertinent History Pyscho-Social History: No Pertinent History Reproductive Disorders: No Pertinent History Comment: IRREGULAR PERIODS STARTED ON CONTROL TO HELP CONTROL THEM, anemia , UTI - Female History Are you now?: No - Past Surgical History Past Surgical History: Yes Neuro Surgical History: No Pertinent History Cardiac History: No Pertinent History Respiratory Surgery: No Pertinent History GI Surgical History: No Pertinent History Genitourinary Surgical Hx: No Pertinent History Musculskeletal Surgical Hx: No Pertinent History Female Surgical History: No Pertinent History Other Surgical History: TUBES AN INFANT. TONSILS ET ADNOIDS - Social History Smoking Status: Current every day smoker How long have you smoked: 5 years Exposure to second hand smoke: Yes Alcohol: None Drug Use: none - Physical Exam Vital Signs: Vital Signs - 24 hr Temp Pulse Resp BP Pulse Ox 10/09/18 06:59 98 F 96 H 18 122/68 93 L 10/09/18 05:16 98 10/09/18 03:31 98.1 F 90 22 165/91 97 10/09/18 03:09 97 10/08/18 23:18 98.7 F 87 20 142/70 97 10/08/18 20:00 98.3 F 76 18 125/61 94 L 10/08/18 15:31 98.8 F 100 H 22 143/65 99 10/08/18 15:04 98.8 F 100 H 22 143/65 99 10/08/18 14:45 84 18 144/79 97 10/08/18 13:28 98.3 F 79 20 143/97 100 General Appearance: no apparent distress Neurologic Exam: alert, oriented x 3 Eye Exam: PERRL/EOMI, eyes nml inspection Respiratory Exam: normal breath sounds, lungs clear, No respiratory distress Cardiovascular Exam: regular rate/rhythm, normal heart sounds, normal peripheral pulses Gastrointestinal/Abdomen Exam: normal bowel sounds, tenderness (RUQ), No guarding, No rebound Extremity Exam: normal inspection, normal range of motion, pelvis stable Skin Exam: normal color, warm, dry, No rash Results - Labs Lab/Micro Results: Lab Results-Last 24 Hours 10/09/18 10/09/18 10/09/18 Range/Units 05:30 05:30 05:30 WBC 10.8 H (4.0-10.5) K/mm3 RBC 3.90 L (4.1-5.4) M/mm3 Hgb 11.1 L (12.0-16.0) gm/dl Hct 35.7 (35-47) % MCV 91.5 (78-100) fl MCH 28.4 (26-32) pg MCHC 31.1 L (32-36) g/dl RDW 15.5 H (11.5-14.0) % Plt Count 273 (150-450) K/mm3 MPV 10.6 H (6-9.5) fl Gran % 69.2 H (36.0-66.0) % Eos # (Auto) 0.06 (0-0.5) Absolute Lymphs (auto) 2.20 (1.0-4.6) Absolute Monos (auto) 1.02 (0.0-1.3) Lymphocytes % 20.5 L (24.0-44.0) % Monocytes % 9.5 (0.0-12.0) % Eosinophils % 0.6 (0.00-5.0) % Basophils % 0.2 (0.0-0.4) % Absolute Granulocytes 7.45 H (1.4-6.9) Basophils # 0.02 (0-0.4) Sodium 140 (137-145) mmol/L Potassium 4.4 (3.5-5.1) mmol/L Chloride 109 H (98-107) mmol/L Carbon Dioxide 21 L (22-30) mmol/L Anion Gap 14.9 (5-15) MEQ/L BUN 4 L (7-17) mg/dL Creatinine 0.57 (0.52-1.04) mg/dL Estimated GFR > 60.0 ML/MIN Glucose 80 (74-106) mg/dL Calcium 8.8 (8.4-10.2) mg/dL Total Bilirubin 0.40 (0.2-1.3) mg/dL AST 11 L (14-36) U/L ALT 9 (0-35) U/L Alkaline Phosphatase 57 (38-126) U/L Serum Total Protein 6.5 (6.3-8.2) g/dL Albumin 3.4 L (3.5-5.0) g/dL Amylase 52 (30-110) U/L Lipase 28 (23-300) U/L Assessment/Plan (1) Acute cholecystitis Current Visit: Yes Status: Acute Assessment & Plan: on levaquin and flagyl due to pcn allergy, receiving zofran prn and on a dilaudid [employer] for pain control. patient is NPO and surgical consult is pending. Code(s): K81.0 - ACUTE CHOLECYSTITIS
[2018-10-09] MEDS ORDERED: CLINDAMYCIN-D5W 900 MG/50 ML*** 900 MG/50 ML BAG IV SCH (09:30)
[2018-10-09] MEDS ORDERED: Lactated Ringers 1,000 ML IV SCH (09:30)
[2018-10-09] MEDS ORDERED: Levofloxacin 500MG/100ML D5W 500 MG/100 ML BAG IV SCH (10:00)
[2018-10-09] MEDS ORDERED: Sensorcaine 0.25% 10 ML ONE (11:31)
[2018-10-09] MEDS ORDERED: Lactated Ringers 1,000 ML IV ONE (11:32)
[2018-10-09] MEDS ORDERED: NORCO 5/325 MG PO PRN (18:09)
[2018-10-09 20:47] VITALS: O2SAT 97
[2018-10-09] MEDS ORDERED: TORAdol 30 mg Injection IV ONE (20:59)
[2018-10-09] MEDS ORDERED: Zemuron 100 MG/10 ML IV ONE (20:59)
[2018-10-09] MEDS ORDERED: Quelicin Fliptop 200 MG/10 ML IV ONE (20:59)
[2018-10-09] MEDS ORDERED: Zofran 4 MG/2 ML VIAL IV ONE (20:59)
[2018-10-09] MEDS ORDERED: Ketamine HCl 50 MG/ML IV ONE (20:59)
[2018-10-09] MEDS ORDERED: Decadron 4 MG INJ IV ONE (20:59)
[2018-10-09] MEDS ORDERED: DIPRIVAN 200 MG/20 ML IV ONE (20:59)
[2018-10-09] MEDS ORDERED: DILAUDID 2 MG INJECTION IV ONE (20:59)
[2018-10-09] MEDS ORDERED: LIDOCAINE HCL 2% 100 MG/5 ML IJ ONE (20:59)
[2018-10-09] MEDS ORDERED: SUBLIMAZE 250 MCG/5 ML IV ONE (20:59)
[2018-10-09] MEDS ORDERED: Versed 2 MG/2 ML Injection IV ONE (20:59)
[2018-10-09] MEDS ORDERED: BRIDION 200MG/2ML IV ONE (20:59)
[2018-10-09 22:29] VITALS: BP 123/62; PULSE 79
--- NOTE | 2018-10-10 09:40 | CONS ---
CONSULT DATE: 10/09/2018 REASON FOR CONSULT: Abdominal pain. HISTORY: This patient presents with severe right upper quadrant abdominal pain that has been going on since Wednesday. It has been constant. It has been associated with nausea. She has had a similar pain to a lesser degree intermittently for the last few months. She denies any fevers, chills, chest pain or shortness of breath. It does radiate to her back. It gets worse with eating. PAST MEDICAL HISTORY: Negative. PAST SURGICAL HISTORY: Tonsils and adenoids. MEDICATIONS: BCP. ALLERGIES: CODEINE, MORPHINE, PENICILLIN. SOCIAL HISTORY: Positive tobacco. No alcohol. FAMILY HISTORY: Diabetes, coronary artery disease. REVIEW OF SYSTEMS: Twelve systems reviewed as noted in history of present illness. LAB DATA AND TESTS: CT scan shows cholelithiasis with gallbladder wall thickening and pericholecystic fluid consistent with acute cholecystitis. Laboratory studies grossly within normal limits including CBC, BMP and liver function tests. PHYSICAL EXAMINATION: GENERAL: No distress. HEENT: Sclera nonicteric. Extraocular movements intact. NECK: Supple. No JVD. CHEST: Nonlabored breathing. ABDOMEN: Soft, nondistended, tender to palpation right upper quadrant with voluntary guarding. EXTREMITIES: No peripheral edema. NEURO: Awake, alert and oriented. PSYCH: Appropriate mood and affect. ASSESSMENT: Acute calculous cholecystitis. PLAN: Laparoscopic possible open cholecystectomy.
--- NOTE | 2018-10-11 11:02 | OP ---
SURGERY DATE/TIME: 10/09/2018 1234 PREOPERATIVE DIAGNOSIS: Acute calculous cholecystitis. POSTOPERATIVE DIAGNOSIS: Acute calculous cholecystitis. PROCEDURE: Laparoscopic cholecystectomy. SURGEON: Romario Lai M.D. ANESTHESIA: General. ESTIMATED BLOOD LOSS: Minimal. COMPLICATIONS: None. FINDINGS: Severe gallbladder edema and purulent fluid in the gallbladder. SPECIMEN: Gallbladder bile for culture, gallbladder. INDICATION: This patient presents with acute calculous cholecystitis. She initially presented the day before and we had planned for laparoscopic cholecystectomy yesterday. However the patient did leave AMA and returned later back to the emergency room. After discussing risks and benefits of surgery the patient wishes to proceed with surgery today for laparoscopic possible open cholecystectomy after discussion of risks and benefits of surgery including potential risks such as infection or bile duct injury or other complications. DESCRIPTION OF PROCEDURE: The patient was brought to the OR, placed in supine position on the operating table and placed under general anesthesia. The abdomen was prepped and draped in sterile fashion. A small incision was made in left upper quadrant. Veress needle inserted. Pneumoperitoneum obtained. A 5 mm optical trocar inserted into the left upper quadrant and the abdomen entered under direct visualization. The area of entry was inspected and did not appear to be any inadvertent injury. An 11 mm trocar was placed superior and to the right of the umbilicus. Two - 5 mm trocars placed in the right lower quadrant. Patient placed in reverse Trendelenburg position and rolled to the left. Gallbladder was tense. It could not really be grasped. An aspirating needle was inserted and the gallbladder was aspirated for a cubic centimeters of white fluid that is somewhat purulent. After aspirating the gallbladder was somewhat easier to grasp and was retracted superior laterally by the fundus. The infundibulum was cleared off of some adhesions. The infundibulum was retracted inferior-laterally. Careful dissection was performed in triangle of [place] and the cystic duct was skeletonized. The hepatocystic plate was completely cleared off. Dissection performed with hook electrocautery and [place] dissector. After this dissection was complete there was really no real cystic artery. A couple quite small vessels had been taken with hook electrocautery but there was no real cystic artery. The cystic duct was skeletonized. There was a very good view of the anatomy. The cystic duct was clipped with 5 mm metal clips with multiple clips on the stay side and then transected with hook scissors. The remaining of the gallbladder was removed from the liver bed with hook electrocautery. Gallbladder removed with the bag. Right upper quadrant was irrigated and suctioned dry. Field was hemostatic. The 11 mm trocar was closed with 0 Vicryl suture with suture passer under direct visualization. Remaining trocars removed under direct visualization. The abdomen desufflated. Wound injected with 0.25% Marcaine. Wound closed with 4-0 Vicryl suture. Steri-Strips and bandage were applied. The patient was recovered and taken back in stable condition.
== END 2018-10-09 21:00 | disposition home or self-care (01) ==
LOC: ED 13:17 → MED SURG 15:02 → INTOOBSV 10-09 08:07 → OBSVTOIN 10-09 08:07
PROVIDERS: ADMIT Family Medicine; ATTEND Family Medicine
DX: K80.00 Calculus of gallbladder with acute cholecystitis without obstruction (principal)
CPT/HCPCS: 36415; 47562; 80053; 82150; 83690; 84703; 85025; 87070; 87075; 96365; 96374; 96375; 99285; G0378; 36000; 74177; 81001; 87086; J0330; J0696; J1100; J1170; J1200; J1885; J1956; J2250; J2405; J2704; J3010; A9270-GY

== ENCOUNTER 2019-01-18 12:23 | Emergency (ER) | payer OTHER ==
[2019-01-18] MEDS ORDERED: Sodium Chloride 0.9% 1000 ML 1,000 ML ONE (13:10)
[2019-01-18] MEDS ORDERED: Sodium Chloride 0.9% 1000 ML 1,000 ML IV STA (13:15)
[2019-01-18 13:34] LABS: BASOPHIL % 0.1 % (0.0-0.4); Basophil (Absolute #) 0.01 (0-0.4); Eosinophil % 1.2 % (0.00-5.0); Eosinophil (Absolute #) 0.12 (0-0.5); Granulocytes % 71.4 % (36.0-66.0); Hematocrit 41.3 % (35-47); Hemoglobin 13.5 gm/dl (12.0-16.0); Lymphocyte (Absolute #) 1.83 (1.0-4.6); Lymphocytes % 18.9 % (24.0-44.0); Mean Cell Volume 88.8 fl (78-100); Mean Corpuscular Hgb Concent. 32.7 g/dl (32-36); Mean Platelet Volume 10.5 fl (6-9.5); Monocyte (Absolute #) 0.81 (0.0-1.3); Monocytes % 8.4 % (0.0-12.0); Platelet Count 281 K/mm3 (150-450); Red Blood Count 4.65 M/mm3 (4.1-5.4); Red Cell Distribution Width 15.7 % (11.5-14.0); White Blood Count 9.7 K/mm3 (4.0-10.5)
--- NOTE | 2019-01-18 13:35 | ERPHSYRPT ---
- History of Present Illness Time Seen by Provider: 01/18/19 12:40 Historian: patient Exam Limitations: no limitations Patient Subjective Stated Complaint: N&V and abdominal cramping, pt is 6 weeks , denies bleeding but small amount of blood was on toilet paper when she wiped, Triage Nursing Assessment: vitals wnl, LLQ, RUQ and RLQ painful with palpatation , rates pain 7/10, skin normal and dry, bowel sounds heard in all 4 quadrants, doesn't appear to be in any distress Physician History: 18 y/o white female presents with several episodes of n/v since 0230 this am. pt also complains of generalized abd cramping. pt is approx 6 weeks . 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 pt recently experienced a miscarriage and has had a miscarriage in the past. pt denies fever. Timing/Duration: today Activities at Onset: none Quality: cramping Abdominal Pain Onset Location: generalized abdomen (mild) Pain Radiation: no radiation Severity of Pain-Max: mild Severity of Pain-Current: mild Modifying Factors: Improves With: vomiting Associated Symptoms: loss of appetite, nausea, vomiting, No diarrhea Previous symptoms: same symptoms as today Allergies/Adverse Reactions: codeine Allergy (Severe, Verified 01/18/19 12:57) Difficulty Breathing morphine Allergy (Verified 01/18/19 12:57) Tightness of Throat Penicillins Allergy (Verified 01/18/19 12:57) Home Medications: Vit#96/Ferrous Fum/FA [ Tablet] 1 tab PO DAILY 01/18/19 [ History] Hx Tetanus, Diphtheria Vaccination/Date Given: Yes Hx Influenza Vaccination/Date Given: No Hx Pneumococcal Vaccination/Date Given: No - Review of Systems Constitutional: No Symptoms Eyes: No Symptoms Ears, Nose, & Throat: No Symptoms Respiratory: No Symptoms Cardiac: No Symptoms Abdominal/Gastrointestinal: Abdominal Pain (mild generalized), Nausea, Vomiting , No Diarrhea Genitourinary Symptoms: No Symptoms Musculoskeletal: No Symptoms Skin: No Symptoms Neurological: No Symptoms Psychological: No Symptoms Endocrine: No Symptoms Hematologic/Lymphatic: No Symptoms Immunological/Allergic: No Symptoms All Other Systems: Reviewed and Negative - Past Medical History Pertinent Past Medical History: Yes Neurological History: No Pertinent History ENT History: No Pertinent History Cardiac History: No Pertinent History Respiratory History: No Pertinent History Endocrine Medical History: No Pertinent History Musculoskeletal History: No Pertinent History GI Medical History: No Pertinent History History: No Pertinent History Psycho-Social History: No Pertinent History Female Reproductive Disorders: No Pertinent History Other Medical History: IRREGULAR PERIODS STARTED ON CONTROL TO HELP CONTROL THEM, anemia, UTI - Past Surgical History Past Surgical History: Yes Neuro Surgical History: No Pertinent History Cardiac: No Pertinent History Respiratory: No Pertinent History Gastrointestinal: No Pertinent History, Cholecystectomy Genitourinary: No Pertinent History Musculoskeletal: No Pertinent History Female Surgical History: No Pertinent History Other Surgical History: TUBES AN . TONSILS ET ADNOIDS - Social History Smoking Status: Current every day smoker How long have you smoked: 5 years Exposure to second hand smoke: Yes Drug Use: none Patient Lives Alone: No - Female History Hx Now: Yes Expected Date of Delivery: 09/12/19 - Nursing Vital Signs Nursing Vital Signs: Initial Vital Signs Temperature 98.2 F 01/18/19 12:40 Pulse Rate 80 01/18/19 12:40 Respiratory Rate 12 01/18/19 12:40 Blood Pressure 141/74 01/18/19 12:40 O2 Sat by Pulse Oximetry 99 01/18/19 12:40 Pain Scale Pain Intensity 7 - Physical Exam General Appearance: no apparent distress, alert, anxiety Eye Exam: PERRL/EOMI Ears, Nose, Throat Exam: normal ENT inspection, moist mucous membranes Neck Exam: normal inspection, non-tender, supple, full range of motion Respiratory Exam: normal breath sounds, lungs clear, airway intact, No chest tenderness, No respiratory distress Cardiovascular Exam: regular rate/rhythm, normal heart sounds, normal peripheral pulses Gastrointestinal/Abdomen Exam: soft, normal bowel sounds, No tenderness, No guarding, No rebound Pelvic Exam: not done Rectal Exam: not done Back Exam: normal inspection, normal range of motion, No CVA tenderness, No vertebral tenderness Extremity Exam: normal inspection, normal range of motion, pelvis stable Neurologic Exam: alert, oriented x 3, cooperative, silicator II-XII nml as tested Skin Exam: normal color, warm, dry Lymphatic Exam: adenopathy SpO2 Interpretation: normal SpO2: 99 O2 Delivery: Room Air Ordered Tests: Active Orders 24 hr Category Date Time Status AMYLASE Stat Lab 01/18/19 13:32 Completed CBC W DIFF Stat Lab 01/18/19 13:32 Completed CMP Stat Lab 01/18/19 13:32 Completed HCG, Quantitative (Inhouse) Stat Lab 01/18/19 13:32 Completed LIPASE Stat Lab 01/18/19 13:32 Completed UA W/RFX UR CULTURE Stat Lab 01/18/19 13:32 Completed Medication Summary Discontinued Medications Generic Name Dose Route Start Last Admin Trade Name Bairon PRN Reason Stop Dose Admin Sodium Chloride Confirm 01/18/19 13:10 Sodium Chloride 0.9% 1000 Ml Administered 01/18/19 13:11 Dose 1,000 mls @ ud .ROUTE .STK-MED ONE Sodium Chloride 1,000 mls @ 999 mls/hr 01/18/19 13:15 01/18/19 14:35 Sodium Chloride 0.9% 1000 Ml IV 01/18/19 14:15 Infused .Q1H1M STA Infusion Lab/Rad Data: Laboratory Result Diagrams 01/18/19 13:32 01/18/19 13:32 Laboratory Results 01/18/19 01/18/19 01/18/19 Range/Units 13:32 13:32 13:32 WBC 9.7 (4.0-10.5) K/mm3 RBC 4.65 (4.1-5.4) M/mm3 Hgb 13.5 (12.0-16.0) gm/dl Hct 41.3 (35-47) % MCV 88.8 (78-100) fl MCH 29.0 (26-32) pg MCHC 32.7 (32-36) g/dl RDW 15.7 H (11.5-14.0) % Plt Count 281 (150-450) K/mm3 MPV 10.5 H (6-9.5) fl Gran % 71.4 H (36.0-66.0) % Eos # (Auto) 0.12 (0-0.5) Absolute Lymphs (auto) 1.83 (1.0-4.6) Absolute Monos (auto) 0.81 (0.0-1.3) Lymphocytes % 18.9 L (24.0-44.0) % Monocytes % 8.4 (0.0-12.0) % Eosinophils % 1.2 (0.00-5.0) % Basophils % 0.1 (0.0-0.4) % Absolute Granulocytes 6.90 (1.4-6.9) Basophils # 0.01 (0-0.4) Sodium 138 (137-145) mmol/L Potassium 4.3 (3.5-5.1) mmol/L Chloride 109 H (98-107) mmol/L Carbon Dioxide 17 L (22-30) mmol/L Anion Gap 16.3 H (5-15) MEQ/L BUN 6 L (7-17) mg/dL Creatinine 0.42 L (0.52-1.04) mg/dL Estimated GFR > 60.0 ML/MIN Glucose 86 (74-106) mg/dL Calcium 8.8 (8.4-10.2) mg/dL Total Bilirubin 0.40 (0.2-1.3) mg/dL AST 26 (14-36) U/L ALT 27 (0-35) U/L Alkaline Phosphatase 68 (38-126) U/L Serum Total Protein 6.8 (6.3-8.2) g/dL Albumin 3.5 (3.5-5.0) g/dL Amylase 56 (30-110) U/L Lipase 31 (23-300) U/L Beta HCG, Quant 97320 mIU/ml Urine Color YELLOW (YELLOW) Urine Appearance SLIGHTLY CLOUDY (CLEAR) Urine pH 6.0 (5-6) Ur Specific [place] 1.012 (1.005-1.025) Urine Protein NEGATIVE (Negative) Urine Ketones NEGATIVE (NEGATIVE) Urine Blood NEGATIVE (0-5) Jose Armando/ul Urine Nitrite NEGATIVE (NEGATIVE) Urine Bilirubin NEGATIVE (NEGATIVE) Urine Urobilinogen NEGATIVE (0-1) mg/dL Ur Leukocyte Esterase SMALL (NEGATIVE) Urine WBC (Auto) 11-15 (0-5) /HPF Urine RBC (Auto) 0-2 (0-2) /HPF U Epithel Cells (Auto) RARE (FEW) /HPF Urine Bacteria (Auto) FEW (NEGATIVE) /HPF Urine Mucus (Auto) SLIGHT (NEGATIVE) /HPF Urine Culture Reflexed NO (NO) Urine Glucose NEGATIVE (NEGATIVE) mg/dL - Progress Progress: improved Counseled pt/family regarding: lab results, diagnosis, need for follow-up - Departure Departure Disposition: Home Clinical Impression: UTI (urinary tract infection) during Condition: Stable Critical Care Time: No Referrals: DARLINE CHINO MD [Primary Care Provider] - Additional Instructions: drink plenty of fluids. follow up with primary doctor tomorrow for further management. Prescriptions: Cephalexin Mh 500 mg [Keflex 500 mg] 500 mg PO TID #21 capsule
[2019-01-18 13:54] LABS: Appearance SLIGHTLY CLOUDY (CLEAR); Bacteria FEW /HPF (NEGATIVE); Bilirubin NEGATIVE (NEGATIVE); Blood NEGATIVE Ery/ul (0-5); Epithelial Cells RARE /HPF (FEW); Glucose NEGATIVE (NEGATIVE); Ketones NEGATIVE (NEGATIVE); Leukocyte Esterase SMALL (NEGATIVE); Mucus SLIGHT /HPF (NEGATIVE); Nitrite NEGATIVE (NEGATIVE); Protein,Urine Dip NEGATIVE (Negative); RBC 0-2 /HPF (0-2); Specific Gravity 1.012 (1.005-1.025); Urobilinogen NEGATIVE mg/dL (0-1)
[2019-01-18 14:43] LABS: ALBUMIN 3.5 g/dL (3.5-5.0); ALKALINE PHOSPHATASE 68 U/L (38-126); AMYLASE 56 U/L (30-110); BLOOD UREA NITROGEN 6 mg/dL (7-17); CHLORIDE 109 mmol/L (98-107); Calcium 8.8 mg/dL (8.4-10.2); Carbon Dioxide 17 mmol/L (22-30); Creatinine 1 0.42 mg/dL (0.52-1.04); Glucose 86 mg/dL (74-106); LIPASE 31 U/L (23-300); Potassium 4.3 mmol/L (3.5-5.1); SGOT/AST 26 U/L (14-36); SGPT/ALT 27 U/L (0-35); SODIUM 138 mmol/L (137-145); Total Protein 6.8 g/dL (6.3-8.2)
[2019-01-18 14:52] LABS: ANION GAP 16.3 MEQ/L (5-15)
[2019-01-18 14:53] LABS: HCG, Quantitative (Inhouse) 57154 mIU/ml
[2019-01-18] MEDS ORDERED: KEFLEX 500 MG PO ONE (15:04)
[2019-01-18] MEDS ORDERED: KEFLEX 500 MG ONE (15:08)
[2019-01-18 15:16] VITALS: BP 138/68; PULSE 68; O2SAT 98
== END 2019-01-18 15:21 | disposition home or self-care (01) ==
LOC: ED 12:23
DX: O23.41 Unspecified infection of urinary tract in pregnancy, first trimester (principal); Z3A.01 Less than 8 weeks gestation of pregnancy
CPT/HCPCS: 36415; 80053; 81001; 82150; 83690; 84702; 85025; 96360; 99284; A9270-GY

== ENCOUNTER 2019-04-30 20:53 | Observation (INO) | payer OTHER ==
[2019-04-30 22:15] VITALS: O2SAT 97
[2019-04-30 22:52] VITALS: BP 128/71; PULSE 93
== END 2019-04-30 22:41 | disposition home or self-care (01) ==
LOC: OB 20:53
PROVIDERS: ADMIT Family Medicine; ATTEND Family Medicine
DX: Z34.82 Encounter for supervision of other normal pregnancy, second trimester (principal)
CPT/HCPCS: G0378

== ENCOUNTER 2019-04-30 22:53 | Emergency (ER) | payer OTHER | END 2019-04-30 23:53 | disposition left against medical advice (07) | LOC: ED 22:53 | DX: Z53.9 Procedure and treatment not carried out, unspecified reason (principal) | CPT/HCPCS: 99281 ==

== ENCOUNTER 2019-05-08 01:45 | Observation (INO) | payer OTHER ==
[2019-05-08 02:33] LABS: Amphetamine,Urine NEGATIVE (NEGATIVE); Barbiturate,Urine NEGATIVE (NEGATIVE); Benzodiazepine,Urine NEGATIVE (NEGATIVE); Cocaine,Urine NEGATIVE (NEGATIVE); Methadone,Urine NEGATIVE (NEGATIVE); Opiate,Urine NEGATIVE (NEGATIVE); PCP,Urine NEGATIVE (NEGATIVE); THC,Urine NEGATIVE (NEGATIVE)
[2019-05-08 02:45] LABS: Appearance CLEAR (CLEAR); Bilirubin NEGATIVE (NEGATIVE); Blood NEGATIVE Ery/ul (0-5); Epithelial Cells RARE /HPF (FEW); Glucose NEGATIVE (NEGATIVE); Ketones NEGATIVE (NEGATIVE); Leukocyte Esterase TRACE (NEGATIVE); Mucus SLIGHT /HPF (NEGATIVE); Nitrite NEGATIVE (NEGATIVE); Protein,Urine Dip NEGATIVE (Negative); Specific Gravity 1.019 (1.005-1.025); Urobilinogen NEGATIVE mg/dL (0-1)
[2019-05-08 03:33] LABS: BASOPHIL % 0.1 % (0.0-0.4); Basophil (Absolute #) 0.02 (0-0.4); Eosinophil % 1.1 % (0.00-5.0); Eosinophil (Absolute #) 0.15 (0-0.5); Granulocyte Absolute (ANC) 9.69 (1.4-6.9); Granulocytes % 72.2 % (36.0-66.0); Hematocrit 36.1 % (35-47); Hemoglobin 11.8 gm/dl (12.0-16.0); Lymphocytes % 17.9 % (24.0-44.0); Mean Cell Volume 98.1 fl (78-100); Mean Corpuscular Hgb Concent. 32.7 g/dl (32-36); Mean Platelet Volume 10.1 fl (6-9.5); Monocyte (Absolute #) 1.17 (0.0-1.3); Monocytes % 8.7 % (0.0-12.0); Platelet Count 255 K/mm3 (150-450); Red Blood Count 3.68 M/mm3 (4.1-5.4); Red Cell Distribution Width 13.8 % (11.5-14.0); White Blood Count 13.4 K/mm3 (4.0-10.5)
[2019-05-08 03:47] LABS: ALBUMIN 3.4 g/dL (3.5-5.0); ALKALINE PHOSPHATASE 59 U/L (38-126); ANION GAP 15.1 MEQ/L (5-15); BLOOD UREA NITROGEN 8 mg/dL (7-17); CHLORIDE 106 mmol/L (98-107); Calcium 9.2 mg/dL (8.4-10.2); Carbon Dioxide 22 mmol/L (22-30); Creatinine 1 0.39 mg/dL (0.52-1.04); Glucose 88 mg/dL (74-106); Potassium 3.9 mmol/L (3.5-5.1); SGOT/AST 16 U/L (14-36); SGPT/ALT 11 U/L (0-35); SODIUM 139 mmol/L (137-145); Total Protein 6.7 g/dL (6.3-8.2)
[2019-05-08 05:53] VITALS: BP 121/61; PULSE 81; O2SAT 99
--- NOTE | 2019-05-08 08:02 | PCM.SSS ---
History of Present Illness - Chief Complaint Chief Complaint: r/o labor --pt reports abdominal pain in rlq and luq abd History of Present Illness: is a 18 year old female who presented to the labor room with complaints of abdominal pain, she reports her pain began in the right lower and left upper quad, vomited yesterday x 4, no fever, no diarrhea, no urinary symptoms. patient is 20 wks approximately. - Review of Systems Constitutional: No Fever, No Chills Respiratory: No Cough, No Short Of Breath Cardiac: No Chest Pain, No Edema, No Syncope Abdominal/Gastrointestinal: Abdominal Pain, Vomiting, No Diarrhea, No Constipation Genitourinary Symptoms: No Symptoms Musculoskeletal: Back Pain Skin: No Rash All Other Systems: Reviewed and Negative Medications & Allergies Home Medications: Home Medication List Vit#96/Ferrous Fum/FA [ Tablet] 1 tab PO DAILY 01/18/19 [ History Confirmed 05/08/19] Ondansetron ODT 4 MG [Zofran Odt 4 mg] 4 mg PO Q6H PRN PRN 05/08/19 [ History Confirmed 05/08/19] Allergies/Adverse Reactions: Allergies Allergy/AdvReac Type Severity Reaction Status Date / Time codeine Allergy Severe Difficulty Verified 05/08/19 01:58 Breathing Penicillins Allergy Severe Swelling Verified 05/08/19 01:58 of Tongue and Lips lactose Allergy Verified 05/08/19 06:30 morphine Allergy Tightness Verified 05/08/19 01:58 of Throat - Past Medical History Past Medical History: Yes Neurological History: No Pertinent History ENT History: No Pertinent History Cardiac History: No Pertinent History Respiratory History: No Pertinent History Endocrine Medical History: No Pertinent History Musculoskelatal History: No Pertinent History GI Medical History: No Pertinent History History: No Pertinent History Pyscho-Social History: No Pertinent History Reproductive Disorders: No Pertinent History Comment: IRREGULAR PERIODS STARTED ON CONTROL TO HELP CONTROL THEM, anemia , UTI - Female History Expected Date of Delivery: 09/06/19 - Past Surgical History Past Surgical History: Yes Neuro Surgical History: No Pertinent History Cardiac History: No Pertinent History Respiratory Surgery: No Pertinent History GI Surgical History: No Pertinent History, Cholecystectomy Genitourinary Surgical Hx: No Pertinent History Musculskeletal Surgical Hx: No Pertinent History Female Surgical History: No Pertinent History Other Surgical History: TUBES AN . TONSILS ET ADNOIDS - Social History Smoking Status: Current every day smoker How long have you smoked: 5 years Exposure to second hand smoke: No Alcohol: None Drug Use: none - Physical Exam Vital Signs: Vital Signs - 24 hr Temp Pulse Resp BP BP Pulse Ox 05/08/19 05:00 98.0 F 81 121/61 99 05/08/19 02:00 98.6 F 106 H 20 126/82 98 05/08/19 01:45 98.6 F 106 H 20 126/82 98 General Appearance: no apparent distress Neurologic Exam: alert, oriented x 3, cooperative Respiratory Exam: normal breath sounds, lungs clear, No respiratory distress Cardiovascular Exam: regular rate/rhythm, normal heart sounds, normal peripheral pulses Gastrointestinal/Abdomen Exam: soft, normal bowel sounds, No tenderness, No distention, No mass, No guarding, No rebound Back Exam: normal inspection, No CVA tenderness, No vertebral tenderness, No rash, No muscle spasm, No point tenderness Extremity Exam: normal inspection, normal range of motion, pelvis stable Skin Exam: normal color, warm, dry, No rash Results - Labs Lab/Micro Results: Lab Results-Last 24 Hours 05/08/19 05/08/19 05/08/19 Range/Units 02:16 02:16 03:31 WBC 13.4 H (4.0-10.5) K/mm3 RBC 3.68 L (4.1-5.4) M/mm3 Hgb 11.8 L (12.0-16.0) gm/dl Hct 36.1 (35-47) % MCV 98.1 (78-100) fl MCH 32.0 (26-32) pg MCHC 32.7 (32-36) g/dl RDW 13.8 (11.5-14.0) % Plt Count 255 (150-450) K/mm3 MPV 10.1 H (6-9.5) fl Gran % 72.2 H (36.0-66.0) % Eos # (Auto) 0.15 (0-0.5) Absolute Lymphs (auto) 2.40 (1.0-4.6) Absolute Monos (auto) 1.17 (0.0-1.3) Lymphocytes % 17.9 L (24.0-44.0) % Monocytes % 8.7 (0.0-12.0) % Eosinophils % 1.1 (0.00-5.0) % Basophils % 0.1 (0.0-0.4) % Absolute Granulocytes 9.69 H (1.4-6.9) Basophils # 0.02 (0-0.4) Sodium (137-145) mmol/L Potassium (3.5-5.1) mmol/L Chloride (98-107) mmol/L Carbon Dioxide (22-30) mmol/L Anion Gap (5-15) MEQ/L BUN (7-17) mg/dL Creatinine (0.52-1.04) mg/dL Estimated GFR ML/MIN Glucose (74-106) mg/dL Calcium (8.4-10.2) mg/dL Total Bilirubin (0.2-1.3) mg/dL AST (14-36) U/L ALT (0-35) U/L Alkaline Phosphatase (38-126) U/L Serum Total Protein (6.3-8.2) g/dL Albumin (3.5-5.0) g/dL Urine Color YELLOW (YELLOW) Urine Appearance CLEAR (CLEAR) Urine pH 6.0 (5-6) Ur Specific [place] 1.019 (1.005-1.025) Urine Protein NEGATIVE (Negative) Urine Ketones NEGATIVE (NEGATIVE) Urine Blood NEGATIVE (0-5) Jose Armando/ul Urine Nitrite NEGATIVE (NEGATIVE) Urine Bilirubin NEGATIVE (NEGATIVE) Urine Urobilinogen NEGATIVE (0-1) mg/dL Ur Leukocyte Esterase TRACE (NEGATIVE) Urine WBC (Auto) 6-10 (0-5) /HPF Urine RBC (Auto) NONE (0-2) /HPF U Epithel Cells (Auto) RARE (FEW) /HPF Urine Bacteria (Auto) NONE (NEGATIVE) /HPF Urine Mucus (Auto) SLIGHT (NEGATIVE) /HPF Urine Culture Reflexed NO (NO) Urine Glucose NEGATIVE (NEGATIVE) mg/dL Urine Opiates Level NEGATIVE (NEGATIVE) Ur Methadone NEGATIVE (NEGATIVE) Urine Barbiturates NEGATIVE (NEGATIVE) Ur Phencyclidine (PCP) NEGATIVE (NEGATIVE) Urine Amphetamine NEGATIVE (NEGATIVE) U Benzodiazepine Level NEGATIVE (NEGATIVE) Urine Cocaine NEGATIVE (NEGATIVE) Urine Marijuana (THC) NEGATIVE (NEGATIVE) 05/08/19 Range/Units 03:31 WBC (4.0-10.5) K/mm3 RBC (4.1-5.4) M/mm3 Hgb (12.0-16.0) gm/dl Hct (35-47) % MCV (78-100) fl MCH (26-32) pg MCHC (32-36) g/dl RDW (11.5-14.0) % Plt Count (150-450) K/mm3 MPV (6-9.5) fl Gran % (36.0-66.0) % Eos # (Auto) (0-0.5) Absolute Lymphs (auto) (1.0-4.6) Absolute Monos (auto) (0.0-1.3) Lymphocytes % (24.0-44.0) % Monocytes % (0.0-12.0) % Eosinophils % (0.00-5.0) % Basophils % (0.0-0.4) % Absolute Granulocytes (1.4-6.9) Basophils # (0-0.4) Sodium 139 (137-145) mmol/L Potassium 3.9 (3.5-5.1) mmol/L Chloride 106 (98-107) mmol/L Carbon Dioxide 22 (22-30) mmol/L Anion Gap 15.1 H (5-15) MEQ/L BUN 8 (7-17) mg/dL Creatinine 0.39 L (0.52-1.04) mg/dL Estimated GFR > 60.0 ML/MIN Glucose 88 (74-106) mg/dL Calcium 9.2 (8.4-10.2) mg/dL Total Bilirubin 0.30 (0.2-1.3) mg/dL AST 16 (14-36) U/L ALT 11 (0-35) U/L Alkaline Phosphatase 59 (38-126) U/L Serum Total Protein 6.7 (6.3-8.2) g/dL Albumin 3.4 L (3.5-5.0) g/dL Urine Color (YELLOW) Urine Appearance (CLEAR) Urine pH (5-6) Ur Specific [place] (1.005-1.025) Urine Protein (Negative) Urine Ketones (NEGATIVE) Urine Blood (0-5) Jose Armando/ul Urine Nitrite (NEGATIVE) Urine Bilirubin (NEGATIVE) Urine Urobilinogen (0-1) mg/dL Ur Leukocyte Esterase (NEGATIVE) Urine WBC (Auto) (0-5) /HPF Urine RBC (Auto) (0-2) /HPF U Epithel Cells (Auto) (FEW) /HPF Urine Bacteria (Auto) (NEGATIVE) /HPF Urine Mucus (Auto) (NEGATIVE) /HPF Urine Culture Reflexed (NO) Urine Glucose (NEGATIVE) mg/dL Urine Opiates Level (NEGATIVE) Ur Methadone (NEGATIVE) Urine Barbiturates (NEGATIVE) Ur Phencyclidine (PCP) (NEGATIVE) Urine Amphetamine (NEGATIVE) U Benzodiazepine Level (NEGATIVE) Urine Cocaine (NEGATIVE) Urine Marijuana (THC) (NEGATIVE) Assessment/Plan (1) Abdominal pain affecting Current Visit: No Status: Acute Assessment & Plan: exam is benign, workup has been negative. discussed likely musculoskeletal cause of current back pain, possible viral illness with vomiting etc and abd pain has resolved at this time Code(s): O26.899 - [facility] RELATED CONDITIONS, UNSPECIFIED TRIMESTER; R10.9 - UNSPECIFIED ABDOMINAL PAIN Hospital Summary - Vitals & Intake/Output Vital Signs: Vital Signs Temperature 98.0 F 05/08/19 05:00 Pulse Rate 81 05/08/19 05:00 Respiratory Rate 20 05/08/19 02:00 Blood Pressure 121/61 05/08/19 05:00 O2 Sat by Pulse Oximetry 99 05/08/19 05:00 Intake & Output: Intake & Output 05/05/19 05/06/19 05/07/19 05/08/19 11:59 11:59 11:59 11:59 Weight 81.647 kg - Lab Result Diagrams: 05/08/19 03:31 05/08/19 03:31 Lab Results-Last 24 Hrs: Lab Results-Last 24 Hours 05/08/19 05/08/19 05/08/19 Range/Units 02:16 02:16 03:31 WBC 13.4 H (4.0-10.5) K/mm3 RBC 3.68 L (4.1-5.4) M/mm3 Hgb 11.8 L (12.0-16.0) gm/dl Hct 36.1 (35-47) % MCV 98.1 (78-100) fl MCH 32.0 (26-32) pg MCHC 32.7 (32-36) g/dl RDW 13.8 (11.5-14.0) % Plt Count 255 (150-450) K/mm3 MPV 10.1 H (6-9.5) fl Gran % 72.2 H (36.0-66.0) % Eos # (Auto) 0.15 (0-0.5) Absolute Lymphs (auto) 2.40 (1.0-4.6) Absolute Monos (auto) 1.17 (0.0-1.3) Lymphocytes % 17.9 L (24.0-44.0) % Monocytes % 8.7 (0.0-12.0) % Eosinophils % 1.1 (0.00-5.0) % Basophils % 0.1 (0.0-0.4) % Absolute Granulocytes 9.69 H (1.4-6.9) Basophils # 0.02 (0-0.4) Sodium (137-145) mmol/L Potassium (3.5-5.1) mmol/L Chloride (98-107) mmol/L Carbon Dioxide (22-30) mmol/L Anion Gap (5-15) MEQ/L BUN (7-17) mg/dL Creatinine (0.52-1.04) mg/dL Estimated GFR ML/MIN Glucose (74-106) mg/dL Calcium (8.4-10.2) mg/dL Total Bilirubin (0.2-1.3) mg/dL AST (14-36) U/L ALT (0-35) U/L Alkaline Phosphatase (38-126) U/L Serum Total Protein (6.3-8.2) g/dL Albumin (3.5-5.0) g/dL Urine Color YELLOW (YELLOW) Urine Appearance CLEAR (CLEAR) Urine pH 6.0 (5-6) Ur Specific [place] 1.019 (1.005-1.025) Urine Protein NEGATIVE (Negative) Urine Ketones NEGATIVE (NEGATIVE) Urine Blood NEGATIVE (0-5) Jose Armando/ul Urine Nitrite NEGATIVE (NEGATIVE) Urine Bilirubin NEGATIVE (NEGATIVE) Urine Urobilinogen NEGATIVE (0-1) mg/dL Ur Leukocyte Esterase TRACE (NEGATIVE) Urine WBC (Auto) 6-10 (0-5) /HPF Urine RBC (Auto) NONE (0-2) /HPF U Epithel Cells (Auto) RARE (FEW) /HPF Urine Bacteria (Auto) NONE (NEGATIVE) /HPF Urine Mucus (Auto) SLIGHT (NEGATIVE) /HPF Urine Culture Reflexed NO (NO) Urine Glucose NEGATIVE (NEGATIVE) mg/dL Urine Opiates Level NEGATIVE (NEGATIVE) Ur Methadone NEGATIVE (NEGATIVE) Urine Barbiturates NEGATIVE (NEGATIVE) Ur Phencyclidine (PCP) NEGATIVE (NEGATIVE) Urine Amphetamine NEGATIVE (NEGATIVE) U Benzodiazepine Level NEGATIVE (NEGATIVE) Urine Cocaine NEGATIVE (NEGATIVE) Urine Marijuana (THC) NEGATIVE (NEGATIVE) 05/08/19 Range/Units 03:31 WBC (4.0-10.5) K/mm3 RBC (4.1-5.4) M/mm3 Hgb (12.0-16.0) gm/dl Hct (35-47) % MCV (78-100) fl MCH (26-32) pg MCHC (32-36) g/dl RDW (11.5-14.0) % Plt Count (150-450) K/mm3 MPV (6-9.5) fl Gran % (36.0-66.0) % Eos # (Auto) (0-0.5) Absolute Lymphs (auto) (1.0-4.6) Absolute Monos (auto) (0.0-1.3) Lymphocytes % (24.0-44.0) % Monocytes % (0.0-12.0) % Eosinophils % (0.00-5.0) % Basophils % (0.0-0.4) % Absolute Granulocytes (1.4-6.9) Basophils # (0-0.4) Sodium 139 (137-145) mmol/L Potassium 3.9 (3.5-5.1) mmol/L Chloride 106 (98-107) mmol/L Carbon Dioxide 22 (22-30) mmol/L Anion Gap 15.1 H (5-15) MEQ/L BUN 8 (7-17) mg/dL Creatinine 0.39 L (0.52-1.04) mg/dL Estimated GFR > 60.0 ML/MIN Glucose 88 (74-106) mg/dL Calcium 9.2 (8.4-10.2) mg/dL Total Bilirubin 0.30 (0.2-1.3) mg/dL AST 16 (14-36) U/L ALT 11 (0-35) U/L Alkaline Phosphatase 59 (38-126) U/L Serum Total Protein 6.7 (6.3-8.2) g/dL Albumin 3.4 L (3.5-5.0) g/dL Urine Color (YELLOW) Urine Appearance (CLEAR) Urine pH (5-6) Ur Specific [place] (1.005-1.025) Urine Protein (Negative) Urine Ketones (NEGATIVE) Urine Blood (0-5) Jose Armando/ul Urine Nitrite (NEGATIVE) Urine Bilirubin (NEGATIVE) Urine Urobilinogen (0-1) mg/dL Ur Leukocyte Esterase (NEGATIVE) Urine WBC (Auto) (0-5) /HPF Urine RBC (Auto) (0-2) /HPF U Epithel Cells (Auto) (FEW) /HPF Urine Bacteria (Auto) (NEGATIVE) /HPF Urine Mucus (Auto) (NEGATIVE) /HPF Urine Culture Reflexed (NO) Urine Glucose (NEGATIVE) mg/dL Urine Opiates Level (NEGATIVE) Ur Methadone (NEGATIVE) Urine Barbiturates (NEGATIVE) Ur Phencyclidine (PCP) (NEGATIVE) Urine Amphetamine (NEGATIVE) U Benzodiazepine Level (NEGATIVE) Urine Cocaine (NEGATIVE) Urine Marijuana (THC) (NEGATIVE) - Discharge Disposition: Home, Self-Care Condition: Stable Prescriptions: No Action Vit#96/Ferrous Fum/FA [ Tablet] 1 tab PO DAILY Ondansetron ODT 4 MG [Zofran Odt 4 mg] 4 mg PO Q6H PRN PRN PRN Reason: Nausea Follow up with: DARLINE CHINO MD [Primary Care Provider] - 1 Week
--- NOTE | 2019-05-08 09:19 | PCM.NOTE ---
Date and Time: 05/08/19912 OBJECTIVE DATA Vital Signs: Vital Signs - 24 hr Temp Pulse Resp BP BP Pulse Ox 05/08/19 05:00 98.0 F 81 121/61 99 05/08/19 02:00 98.6 F 106 H 20 126/82 98 05/08/19 01:45 98.6 F 106 H 20 126/82 98 Pain Assessment - Last Documented Pain Intensity 9 Pain Scale Used 0-10 Pain Scale Intake and Output: Intake & Output 05/06/19 05/07/19 05/08/19 05/09/19 06:59 06:59 06:59 06:59 Weight 81.647 kg Lab Results: Lab Results-Last 24 Hours 05/08/19 05/08/19 05/08/19 Range/Units 02:16 02:16 03:31 WBC 13.4 H (4.0-10.5) K/mm3 RBC 3.68 L (4.1-5.4) M/mm3 Hgb 11.8 L (12.0-16.0) gm/dl Hct 36.1 (35-47) % MCV 98.1 (78-100) fl MCH 32.0 (26-32) pg MCHC 32.7 (32-36) g/dl RDW 13.8 (11.5-14.0) % Plt Count 255 (150-450) K/mm3 MPV 10.1 H (6-9.5) fl Gran % 72.2 H (36.0-66.0) % Eos # (Auto) 0.15 (0-0.5) Absolute Lymphs (auto) 2.40 (1.0-4.6) Absolute Monos (auto) 1.17 (0.0-1.3) Lymphocytes % 17.9 L (24.0-44.0) % Monocytes % 8.7 (0.0-12.0) % Eosinophils % 1.1 (0.00-5.0) % Basophils % 0.1 (0.0-0.4) % Absolute Granulocytes 9.69 H (1.4-6.9) Basophils # 0.02 (0-0.4) Sodium (137-145) mmol/L Potassium (3.5-5.1) mmol/L Chloride (98-107) mmol/L Carbon Dioxide (22-30) mmol/L Anion Gap (5-15) MEQ/L BUN (7-17) mg/dL Creatinine (0.52-1.04) mg/dL Estimated GFR ML/MIN Glucose (74-106) mg/dL Calcium (8.4-10.2) mg/dL Total Bilirubin (0.2-1.3) mg/dL AST (14-36) U/L ALT (0-35) U/L Alkaline Phosphatase (38-126) U/L Serum Total Protein (6.3-8.2) g/dL Albumin (3.5-5.0) g/dL Urine Color YELLOW (YELLOW) Urine Appearance CLEAR (CLEAR) Urine pH 6.0 (5-6) Ur Specific [place] 1.019 (1.005-1.025) Urine Protein NEGATIVE (Negative) Urine Ketones NEGATIVE (NEGATIVE) Urine Blood NEGATIVE (0-5) Jose Armando/ul Urine Nitrite NEGATIVE (NEGATIVE) Urine Bilirubin NEGATIVE (NEGATIVE) Urine Urobilinogen NEGATIVE (0-1) mg/dL Ur Leukocyte Esterase TRACE (NEGATIVE) Urine WBC (Auto) 6-10 (0-5) /HPF Urine RBC (Auto) NONE (0-2) /HPF U Epithel Cells (Auto) RARE (FEW) /HPF Urine Bacteria (Auto) NONE (NEGATIVE) /HPF Urine Mucus (Auto) SLIGHT (NEGATIVE) /HPF Urine Culture Reflexed NO (NO) Urine Glucose NEGATIVE (NEGATIVE) mg/dL Urine Opiates Level NEGATIVE (NEGATIVE) Ur Methadone NEGATIVE (NEGATIVE) Urine Barbiturates NEGATIVE (NEGATIVE) Ur Phencyclidine (PCP) NEGATIVE (NEGATIVE) Urine Amphetamine NEGATIVE (NEGATIVE) U Benzodiazepine Level NEGATIVE (NEGATIVE) Urine Cocaine NEGATIVE (NEGATIVE) Urine Marijuana (THC) NEGATIVE (NEGATIVE) 05/08/19 Range/Units 03:31 WBC (4.0-10.5) K/mm3 RBC (4.1-5.4) M/mm3 Hgb (12.0-16.0) gm/dl Hct (35-47) % MCV (78-100) fl MCH (26-32) pg MCHC (32-36) g/dl RDW (11.5-14.0) % Plt Count (150-450) K/mm3 MPV (6-9.5) fl Gran % (36.0-66.0) % Eos # (Auto) (0-0.5) Absolute Lymphs (auto) (1.0-4.6) Absolute Monos (auto) (0.0-1.3) Lymphocytes % (24.0-44.0) % Monocytes % (0.0-12.0) % Eosinophils % (0.00-5.0) % Basophils % (0.0-0.4) % Absolute Granulocytes (1.4-6.9) Basophils # (0-0.4) Sodium 139 (137-145) mmol/L Potassium 3.9 (3.5-5.1) mmol/L Chloride 106 (98-107) mmol/L Carbon Dioxide 22 (22-30) mmol/L Anion Gap 15.1 H (5-15) MEQ/L BUN 8 (7-17) mg/dL Creatinine 0.39 L (0.52-1.04) mg/dL Estimated GFR > 60.0 ML/MIN Glucose 88 (74-106) mg/dL Calcium 9.2 (8.4-10.2) mg/dL Total Bilirubin 0.30 (0.2-1.3) mg/dL AST 16 (14-36) U/L ALT 11 (0-35) U/L Alkaline Phosphatase 59 (38-126) U/L Serum Total Protein 6.7 (6.3-8.2) g/dL Albumin 3.4 L (3.5-5.0) g/dL Urine Color (YELLOW) Urine Appearance (CLEAR) Urine pH (5-6) Ur Specific [place] (1.005-1.025) Urine Protein (Negative) Urine Ketones (NEGATIVE) Urine Blood (0-5) Jose Armando/ul Urine Nitrite (NEGATIVE) Urine Bilirubin (NEGATIVE) Urine Urobilinogen (0-1) mg/dL Ur Leukocyte Esterase (NEGATIVE) Urine WBC (Auto) (0-5) /HPF Urine RBC (Auto) (0-2) /HPF U Epithel Cells (Auto) (FEW) /HPF Urine Bacteria (Auto) (NEGATIVE) /HPF Urine Mucus (Auto) (NEGATIVE) /HPF Urine Culture Reflexed (NO) Urine Glucose (NEGATIVE) mg/dL Urine Opiates Level (NEGATIVE) Ur Methadone (NEGATIVE) Urine Barbiturates (NEGATIVE) Ur Phencyclidine (PCP) (NEGATIVE) Urine Amphetamine (NEGATIVE) U Benzodiazepine Level (NEGATIVE) Urine Cocaine (NEGATIVE) Urine Marijuana (THC) (NEGATIVE)
== END 2019-05-08 08:30 | disposition home or self-care (01) ==
LOC: OB 01:45
PROVIDERS: ADMIT Family Medicine; ATTEND Family Medicine
DX: O26.892 Other specified pregnancy related conditions, second trimester (principal); Z3A.20 20 weeks gestation of pregnancy; R10.12 Left upper quadrant pain; R10.11 Right upper quadrant pain; R11.10 Vomiting, unspecified
CPT/HCPCS: 36415; 80053; 80307; 81001; 85025; G0378

== ENCOUNTER 2019-05-09 22:18 | Emergency (ER) | payer OTHER ==
--- NOTE | 2019-05-09 22:29 | ERPHSYRPT ---
- History of Present Illness Time Seen by Provider: 05/09/19 22:25 Historian: patient Exam Limitations: no limitations Physician History: 18 y/o white female, who is 23 weeks , presents with 3 days of central lower midline back pain. pt denies injury. pt denies abd pain. pt has no urinary sx. pt has h/o recurrent utis. pt states she was vomiting all day today. pt denies soa and denies cp. pt has zofran at home and not helping. no vaginal bleeding Timing/Duration: today (n/v), day(s) (3 days for back pain) Quality: aching Pain Radiation: no radiation Severity of Pain-Max: mild Severity of Pain-Current: mild Modifying Factors: Improves With: vomiting Associated Symptoms: back, nausea, vomiting Previous symptoms: same symptoms as today Allergies/Adverse Reactions: codeine Allergy (Severe, Verified 05/09/19 22:36) Difficulty Breathing Penicillins Allergy (Severe, Verified 05/09/19 22:36) Swelling of Tongue and Lips throat swells shut lactose Allergy (Verified 05/09/19 22:36) morphine Allergy (Verified 05/09/19 22:36) Tightness of Throat Home Medications: Vit#96/Ferrous Fum/FA [ Tablet] 1 tab PO DAILY 01/18/19 [ History] Ondansetron ODT 4 MG [Zofran Odt 4 mg] 4 mg PO Q6H PRN PRN 05/08/19 [ History] Hx Tetanus, Diphtheria Vaccination/Date Given: Yes Hx Influenza Vaccination/Date Given: No Hx Pneumococcal Vaccination/Date Given: No - Review of Systems Constitutional: No Symptoms Eyes: No Symptoms Ears, Nose, & Throat: No Symptoms Respiratory: No Symptoms Cardiac: No Symptoms Abdominal/Gastrointestinal: No Symptoms Genitourinary Symptoms: No Symptoms Musculoskeletal: Back Pain Skin: No Symptoms Neurological: No Symptoms Psychological: No Symptoms Endocrine: No Symptoms Hematologic/Lymphatic: No Symptoms Immunological/Allergic: No Symptoms All Other Systems: Reviewed and Negative - Past Medical History Pertinent Past Medical History: Yes Neurological History: No Pertinent History ENT History: No Pertinent History Cardiac History: No Pertinent History Respiratory History: No Pertinent History Endocrine Medical History: No Pertinent History Musculoskeletal History: No Pertinent History GI Medical History: No Pertinent History History: No Pertinent History Psycho-Social History: No Pertinent History Female Reproductive Disorders: No Pertinent History Other Medical History: IRREGULAR PERIODS STARTED ON CONTROL TO HELP CONTROL THEM, anemia, UTI - Past Surgical History Past Surgical History: Yes Neuro Surgical History: No Pertinent History Cardiac: No Pertinent History Respiratory: No Pertinent History Gastrointestinal: No Pertinent History, Cholecystectomy Genitourinary: No Pertinent History Musculoskeletal: No Pertinent History Female Surgical History: No Pertinent History Other Surgical History: TUBES AN . TONSILS ET ADNOIDS - Social History Smoking Status: Current every day smoker How long have you smoked: 5 years Exposure to second hand smoke: No Drug Use: none Patient Lives Alone: No - Nursing Vital Signs Nursing Vital Signs: Initial Vital Signs Temperature 98.7 F 05/09/19 22:24 Pulse Rate 104 H 05/09/19 22:24 Respiratory Rate 18 05/09/19 22:24 Blood Pressure 124/81 05/09/19 22:24 O2 Sat by Pulse Oximetry 97 05/09/19 22:24 Pain Scale Pain Intensity [Back] 2 Pain Intensity 2 - Physical Exam General Appearance: no apparent distress, alert, anxiety Eye Exam: PERRL/EOMI, eyes nml inspection Ears, Nose, Throat Exam: normal ENT inspection, moist mucous membranes Neck Exam: normal inspection, non-tender, supple, full range of motion Respiratory Exam: normal breath sounds, lungs clear, airway intact, No chest tenderness, No respiratory distress Cardiovascular Exam: regular rate/rhythm, normal heart sounds, normal peripheral pulses Gastrointestinal/Abdomen Exam: soft, normal bowel sounds, No tenderness Pelvic Exam: not done Rectal Exam: not done Back Exam: normal inspection, normal range of motion, muscle spasm, No CVA tenderness, No vertebral tenderness Extremity Exam: normal inspection, pelvis stable Neurologic Exam: alert, oriented x 3, cooperative, template cutter II-XII nml as tested Skin Exam: normal color, warm, dry Lymphatic Exam: No adenopathy SpO2 Interpretation: normal O2 Delivery: Room Air - Course Nursing assessment & vital signs reviewed: Yes Ordered Tests: Active Orders 24 hr Category Date Time Status IV Insertion STAT Care 05/09/19 22:30 Active AMYLASE Stat Lab 05/09/19 22:45 Completed CBC W DIFF Stat Lab 05/09/19 22:45 Completed CMP Stat Lab 05/09/19 22:45 Completed LIPASE Stat Lab 05/09/19 22:45 Completed Lactic Acid Stat Lab 05/09/19 22:50 Completed UA W/RFX UR CULTURE Stat Lab 05/09/19 22:45 Completed Medication Summary Discontinued Medications Generic Name Dose Route Start Last Admin Trade Name Bairon PRN Reason Stop Dose Admin Sodium Chloride 1,000 mls @ 999 mls/hr 05/09/19 22:30 05/09/19 22:56 Sodium Chloride 0.9% 1000 Ml IV 05/09/19 23:30 999 mls/hr .Q1H1M STA Administration Sodium Chloride Confirm 05/09/19 22:51 Sodium Chloride 0.9% 1000 Ml Administered 05/09/19 22:52 Dose 1,000 mls @ ud .ROUTE .STK-MED ONE Promethazine HCl 12.5 mg 05/09/19 22:30 Phenergan 25 Mg Inj IM 05/09/19 22:31 STAT ONE Promethazine HCl Confirm 05/09/19 22:51 Phenergan 25 Mg Inj Administered 05/09/19 22:52 Dose 25 mg .ROUTE .STK-MED ONE Lab/Rad Data: Laboratory Result Diagrams 05/09/19 22:45 05/09/19 22:45 Laboratory Results 05/09/19 05/09/19 05/09/19 Range/Units 22:50 22:45 22:45 WBC 15.0 H (4.0-10.5) K/mm3 RBC 3.76 L (4.1-5.4) M/mm3 Hgb 12.3 (12.0-16.0) gm/dl Hct 36.3 (35-47) % MCV 96.5 (78-100) fl MCH 32.7 H (26-32) pg MCHC 33.9 (32-36) g/dl RDW 13.8 (11.5-14.0) % Plt Count 289 (150-450) K/mm3 MPV 10.2 H (6-9.5) fl Gran % 74.3 H (36.0-66.0) % Eos # (Auto) 0.10 (0-0.5) Absolute Lymphs (auto) 2.68 (1.0-4.6) Absolute Monos (auto) 1.05 (0.0-1.3) Lymphocytes % 17.9 L (24.0-44.0) % Monocytes % 7.0 (0.0-12.0) % Eosinophils % 0.7 (0.00-5.0) % Basophils % 0.1 (0.0-0.4) % Absolute Granulocytes 11.14 H (1.4-6.9) Basophils # 0.02 (0-0.4) Sodium 137 (137-145) mmol/L Potassium 3.7 (3.5-5.1) mmol/L Chloride 106 (98-107) mmol/L Carbon Dioxide 21 L (22-30) mmol/L Anion Gap 14.0 (5-15) MEQ/L BUN 7 (7-17) mg/dL Creatinine 0.41 L (0.52-1.04) mg/dL Estimated GFR > 60.0 ML/MIN Glucose 88 (74-106) mg/dL Lactic Acid 0.9 (0.4-2.0) Calcium 9.2 (8.4-10.2) mg/dL Total Bilirubin 0.40 (0.2-1.3) mg/dL AST 19 (14-36) U/L ALT 11 (0-35) U/L Alkaline Phosphatase 69 (38-126) U/L Serum Total Protein 7.4 (6.3-8.2) g/dL Albumin 3.8 (3.5-5.0) g/dL Amylase 61 (30-110) U/L Lipase 36 (23-300) U/L Urine Color (YELLOW) Urine Appearance (CLEAR) Urine pH (5-6) Ur Specific [place] (1.005-1.025) Urine Protein (Negative) Urine Ketones (NEGATIVE) Urine Blood (0-5) Jose Armando/ul Urine Nitrite (NEGATIVE) Urine Bilirubin (NEGATIVE) Urine Urobilinogen (0-1) mg/dL Ur Leukocyte Esterase (NEGATIVE) Urine WBC (Auto) (0-5) /HPF Urine RBC (Auto) (0-2) /HPF U Epithel Cells (Auto) (FEW) /HPF Urine Bacteria (Auto) (NEGATIVE) /HPF Urine Mucus (Auto) (NEGATIVE) /HPF Urine Culture Reflexed (NO) Urine Glucose (NEGATIVE) mg/dL 05/09/19 Range/Units 22:45 WBC (4.0-10.5) K/mm3 RBC (4.1-5.4) M/mm3 Hgb (12.0-16.0) gm/dl Hct (35-47) % MCV (78-100) fl MCH (26-32) pg MCHC (32-36) g/dl RDW (11.5-14.0) % Plt Count (150-450) K/mm3 MPV (6-9.5) fl Gran % (36.0-66.0) % Eos # (Auto) (0-0.5) Absolute Lymphs (auto) (1.0-4.6) Absolute Monos (auto) (0.0-1.3) Lymphocytes % (24.0-44.0) % Monocytes % (0.0-12.0) % Eosinophils % (0.00-5.0) % Basophils % (0.0-0.4) % Absolute Granulocytes (1.4-6.9) Basophils # (0-0.4) Sodium (137-145) mmol/L Potassium (3.5-5.1) mmol/L Chloride (98-107) mmol/L Carbon Dioxide (22-30) mmol/L Anion Gap (5-15) MEQ/L BUN (7-17) mg/dL Creatinine (0.52-1.04) mg/dL Estimated GFR ML/MIN Glucose (74-106) mg/dL Lactic Acid (0.4-2.0) Calcium (8.4-10.2) mg/dL Total Bilirubin (0.2-1.3) mg/dL AST (14-36) U/L ALT (0-35) U/L Alkaline Phosphatase (38-126) U/L Serum Total Protein (6.3-8.2) g/dL Albumin (3.5-5.0) g/dL Amylase (30-110) U/L Lipase (23-300) U/L Urine Color YELLOW (YELLOW) Urine Appearance SLIGHTLY CLOUDY (CLEAR) Urine pH 5.0 (5-6) Ur Specific [place] 1.013 (1.005-1.025) Urine Protein NEGATIVE (Negative) Urine Ketones NEGATIVE (NEGATIVE) Urine Blood NEGATIVE (0-5) Jose Armando/ul Urine Nitrite NEGATIVE (NEGATIVE) Urine Bilirubin NEGATIVE (NEGATIVE) Urine Urobilinogen NEGATIVE (0-1) mg/dL Ur Leukocyte Esterase NEGATIVE (NEGATIVE) Urine WBC (Auto) 0-2 (0-5) /HPF Urine RBC (Auto) NONE (0-2) /HPF U Epithel Cells (Auto) NONE (FEW) /HPF Urine Bacteria (Auto) NONE (NEGATIVE) /HPF Urine Mucus (Auto) SLIGHT (NEGATIVE) /HPF Urine Culture Reflexed NO (NO) Urine Glucose NEGATIVE (NEGATIVE) mg/dL - Progress Progress: improved, re-examined Progress Note: 05/10/19 00:06 pt did not want phenergan Counseled pt/family regarding: lab results, diagnosis, need for follow-up - Departure Departure Disposition: Home Clinical Impression: Vomiting affecting Condition: Stable Critical Care Time: No Referrals: DARLINE CHINO MD [Primary Care Provider] - Additional Instructions: drink plenty of fluids. follow up with chemical worker later today for further management
[2019-05-09] MEDS ORDERED: Phenergan 25 MG INJ IM ONE (22:30)
[2019-05-09] MEDS ORDERED: Sodium Chloride 0.9% 1000 ML 1,000 ML IV STA (22:30)
[2019-05-09 22:37] VITALS: BP 124/81; PULSE 104; O2SAT 97
[2019-05-09] MEDS ORDERED: Sodium Chloride 0.9% 1000 ML 1,000 ML ONE (22:51)
[2019-05-09] MEDS ORDERED: Phenergan 25 MG INJ ONE (22:51)
[2019-05-09 23:01] LABS: Absolute Neutrophil Ct (ANC) 11.14 (1.4-6.9); BASOPHIL % 0.1 % (0.0-0.4); Basophil (Absolute #) 0.02 (0-0.4); Eosinophil % 0.7 % (0.00-5.0); Hematocrit 36.3 % (35-47); Hemoglobin 12.3 gm/dl (12.0-16.0); Lymphocyte (Absolute #) 2.68 (1.0-4.6); Lymphocytes % 17.9 % (24.0-44.0); Mean Cell Volume 96.5 fl (78-100); Mean Corpuscular Hemoglobin 32.7 pg (26-32); Mean Corpuscular Hgb Concent. 33.9 g/dl (32-36); Mean Platelet Volume 10.2 fl (6-9.5); Monocyte (Absolute #) 1.05 (0.0-1.3); Neutrophil % 74.3 % (36.0-66.0); Platelet Count 289 K/mm3 (150-450); Red Blood Count 3.76 M/mm3 (4.1-5.4); Red Cell Distribution Width 13.8 % (11.5-14.0)
[2019-05-09 23:05] LABS: Appearance SLIGHTLY CLOUDY (CLEAR); Bilirubin NEGATIVE (NEGATIVE); Blood NEGATIVE Ery/ul (0-5); Glucose NEGATIVE (NEGATIVE); Ketones NEGATIVE (NEGATIVE); Leukocyte Esterase NEGATIVE (NEGATIVE); Mucus SLIGHT /HPF (NEGATIVE); Nitrite NEGATIVE (NEGATIVE); Protein,Urine Dip NEGATIVE (Negative); Specific Gravity 1.013 (1.005-1.025); Urobilinogen NEGATIVE mg/dL (0-1); WBC 0-2 /HPF (0-5)
[2019-05-09 23:12] LABS: ALBUMIN 3.8 g/dL (3.5-5.0); ALKALINE PHOSPHATASE 69 U/L (38-126); AMYLASE 61 U/L (30-110); BLOOD UREA NITROGEN 7 mg/dL (7-17); CHLORIDE 106 mmol/L (98-107); Calcium 9.2 mg/dL (8.4-10.2); Carbon Dioxide 21 mmol/L (22-30); Creatinine 1 0.41 mg/dL (0.52-1.04); Glucose 88 mg/dL (74-106); LIPASE 36 U/L (23-300); Potassium 3.7 mmol/L (3.5-5.1); SGOT/AST 19 U/L (14-36); SGPT/ALT 11 U/L (0-35); SODIUM 137 mmol/L (137-145); Total Protein 7.4 g/dL (6.3-8.2)
== END 2019-05-10 00:21 | disposition home or self-care (01) ==
LOC: ED 22:18
DX: O21.2 Late vomiting of pregnancy (principal); Z3A.23 23 weeks gestation of pregnancy
CPT/HCPCS: 36000; 36415; 80053; 81001; 82150; 83605; 83690; 85025; 96360; 99284; J2550

== ENCOUNTER 2019-06-13 22:54 | Observation (INO) | payer OTHER ==
[2019-06-14 00:02] LABS: Appearance SLIGHTLY CLOUDY (CLEAR); Bilirubin NEGATIVE (NEGATIVE); Blood NEGATIVE Ery/ul (0-5); Epithelial Cells RARE /HPF (FEW); Glucose NEGATIVE (NEGATIVE); Ketones NEGATIVE (NEGATIVE); Leukocyte Esterase TRACE (NEGATIVE); Mucus SLIGHT /HPF (NEGATIVE); Nitrite NEGATIVE (NEGATIVE); Protein,Urine Dip NEGATIVE (Negative); Specific Gravity 1.016 (1.005-1.025); Urobilinogen NEGATIVE mg/dL (0-1); WBC 0-2 /HPF (0-5)
[2019-06-14 00:09] LABS: Amphetamine,Urine NEGATIVE (NEGATIVE); Barbiturate,Urine NEGATIVE (NEGATIVE); Benzodiazepine,Urine NEGATIVE (NEGATIVE); Cocaine,Urine NEGATIVE (NEGATIVE); Methadone,Urine NEGATIVE (NEGATIVE); Opiate,Urine NEGATIVE (NEGATIVE); PCP,Urine NEGATIVE (NEGATIVE); THC,Urine NEGATIVE (NEGATIVE)
[2019-06-14] MEDS: PROCARDIA 10 MG PO SCH ×2 (00:12→00:38)
[2019-06-14] MEDS ORDERED: Lactated Ringers 1,000 ML IV SCH (01:00)
[2019-06-14] MEDS ORDERED: Sodium Chloride 0.9% 1000 ML 1,000 ML IV STA (01:37)
[2019-06-14 03:42] LABS: ALBUMIN 3.8 g/dL (3.5-5.0); ALKALINE PHOSPHATASE 74 U/L (38-126); ANION GAP 13.9 MEQ/L (5-15); BLOOD UREA NITROGEN 7 mg/dL (7-17); CHLORIDE 107 mmol/L (98-107); Calcium 9.5 mg/dL (8.4-10.2); Carbon Dioxide 23 mmol/L (22-30); Creatinine 1 0.43 mg/dL (0.52-1.04); Glucose 84 mg/dL (74-106); Potassium 3.6 mmol/L (3.5-5.1); SGOT/AST 20 U/L (14-36); SGPT/ALT 12 U/L (0-35); SODIUM 140 mmol/L (137-145); Total Protein 7.5 g/dL (6.3-8.2)
[2019-06-14 04:11] LABS: Absolute Neutrophil Ct (ANC) 12.43 (1.4-6.9); BASOPHIL % 0.1 % (0.0-0.4); Basophil (Absolute #) 0.02 (0-0.4); Eosinophil % 0.8 % (0.00-5.0); Eosinophil (Absolute #) 0.13 (0-0.5); Hematocrit 37.2 % (35-47); Hemoglobin 12.3 gm/dl (12.0-16.0); Lymphocyte (Absolute #) 2.76 (1.0-4.6); Lymphocytes % 16.4 % (24.0-44.0); Mean Cell Volume 98.2 fl (78-100); Mean Corpuscular Hgb Concent. 33.1 g/dl (32-36); Mean Platelet Volume 11.1 fl (6-9.5); Monocyte (Absolute #) 1.51 (0.0-1.3); Neutrophil % 73.7 % (36.0-66.0); Platelet Count 291 K/mm3 (150-450); Red Blood Count 3.79 M/mm3 (4.1-5.4); Red Cell Distribution Width 13.1 % (11.5-14.0); White Blood Count 16.9 K/mm3 (4.0-10.5)
[2019-06-14 04:12] LABS: Mean Corpuscular Hemoglobin 32.4 pg (26-32)
[2019-06-14 04:34] LABS: Slide Review 1 YES
[2019-06-14 06:27] VITALS: BP 120/62; PULSE 80
== END 2019-06-14 06:00 | disposition left against medical advice (07) ==
LOC: OB 22:54
PROVIDERS: ADMIT Family Medicine; ATTEND Family Medicine
DX: Z34.83 Encounter for supervision of other normal pregnancy, third trimester (principal)
CPT/HCPCS: 36415; 80053; 80307; 81001; 85025; A9270-GY

== ENCOUNTER 2019-08-11 15:13 | Observation (INO) | payer OTHER ==
[2019-08-11 16:40] VITALS: BP 131/77; PULSE 93
== END 2019-08-11 16:45 | disposition home or self-care (01) ==
LOC: OB 15:13
PROVIDERS: ADMIT Family Medicine; ATTEND Family Medicine
DX: Z34.83 Encounter for supervision of other normal pregnancy, third trimester (principal)
CPT/HCPCS: G0378

== ENCOUNTER 2019-09-03 02:42 | Inpatient (IN) | payer OTHER ==
[2019-09-03 03:45] LABS: Amourphous Crystal FEW /HPF (NEGATIVE); Appearance CLOUDY (CLEAR); Bacteria FEW /HPF (NEGATIVE); Bilirubin NEGATIVE (NEGATIVE); Blood NEGATIVE Ery/ul (0-5); Epithelial Cells FEW /HPF (FEW); Glucose NEGATIVE (NEGATIVE); Ketones NEGATIVE (NEGATIVE); Leukocyte Esterase MODERATE (NEGATIVE); Mucus SLIGHT /HPF (NEGATIVE); Nitrite NEGATIVE (NEGATIVE); Protein,Urine Dip NEGATIVE (Negative); RBC 0-2 /HPF (0-2); Specific Gravity 1.016 (1.005-1.025); Urobilinogen 2 mg/dL (0-1); WBC 26-50 /HPF (0-5)
[2019-09-03 03:56] LABS: Barbiturate,Urine NEGATIVE (NEGATIVE); Benzodiazepine,Urine NEGATIVE (NEGATIVE); Cocaine,Urine NEGATIVE (NEGATIVE); Methadone,Urine NEGATIVE (NEGATIVE); Opiate,Urine NEGATIVE (NEGATIVE); PCP,Urine NEGATIVE (NEGATIVE); THC,Urine NEGATIVE (NEGATIVE)
[2019-09-03 04:14] LABS: Amphetamine,Urine NEGATIVE (NEGATIVE)
[2019-09-03] MEDS ORDERED: TYLENOL EXTRA STRENGTH 500 MG PO PRN (05:11)
[2019-09-03] MEDS ORDERED: Zofran 4 MG/2 ML VIAL IV PRN (05:11)
[2019-09-03 05:27] LABS: Hematocrit 37.9 % (35-47); Hemoglobin 12.7 gm/dl (12.0-16.0); Mean Corpuscular Hemoglobin 31.8 pg (26-32); Mean Corpuscular Hgb Concent. 33.5 g/dl (32-36); Mean Platelet Volume 9.9 fl (7.5-11.0); Platelet Count 294 K/mm3 (150-450); Red Blood Count 3.99 M/mm3 (4.1-5.4); White Blood Count 17.2 K/mm3 (4.0-10.5)
[2019-09-03] MEDS ORDERED: Lactated Ringers 1,000 ML IV SCH (05:30)
[2019-09-03] MEDS ORDERED: PITOCIN 30 UNITS/ LR 500 ML 500 ML IV SCH (05:30)
[2019-09-03 06:07] LABS: BAND 1 % (0.0-2.0); Basophil 1 % (0.0-1.0); Eosinophil 2 % (0.00-3.0); Lymphocytes 19 % (24-44); Monocyte 6 % (0.0-12.0); Neutrophils 71 % (36.0-66.0); Platelet Estimate NORMAL (NORMAL); Total Cells Counted 100
[2019-09-03] MEDS ORDERED: TUCKS TP PRN (06:34)
[2019-09-03] MEDS ORDERED: Anucort-HC SUPPOSITORY PR PRN (06:34)
[2019-09-03] MEDS ORDERED: Dulcolax 10 MG SUPP PR PRN (06:34)
[2019-09-03] MEDS ORDERED: Dermoplast Spray TP PRN (06:34)
[2019-09-03] MEDS ORDERED: CORTISONE 1% CREAM TP PRN (06:34)
[2019-09-03] MEDS ORDERED: LANSINOH 40 GM TOP PRN (06:34)
[2019-09-03] MEDS: MOTRIN 400 MG PO PRN (06:49)
[2019-09-03] MEDS: NORCO 5/325 MG PO PRN ×3 (10:18→21:14)
[2019-09-03] MEDS: Colace 100 MG PO SCH (21:15)
[2019-09-04] MEDS: NORCO 5/325 MG PO PRN (02:52)
[2019-09-04 05:25] LABS: Absolute Neutrophil Ct (ANC) 12.55 (1.4-6.9); BASOPHIL % 0.1 % (0.0-0.4); Basophil (Absolute #) 0.02 (0-0.4); Eosinophil % 0.7 % (0.00-5.0); Eosinophil (Absolute #) 0.11 (0-0.5); Hematocrit 32.7 % (35-47); Hemoglobin 10.7 gm/dl (12.0-16.0); Lymphocyte (Absolute #) 2.62 (1.0-4.6); Lymphocytes % 15.8 % (24.0-44.0); Mean Cell Volume 97.9 fl (78-100); Mean Corpuscular Hgb Concent. 32.7 g/dl (32-36); Mean Platelet Volume 10.2 fl (7.5-11.0); Monocyte (Absolute #) 1.28 (0.0-1.3); Monocytes % 7.7 % (0.0-12.0); Neutrophil % 75.7 % (36.0-66.0); Platelet Count 253 K/mm3 (150-450); Red Blood Count 3.34 M/mm3 (4.1-5.4); Red Cell Distribution Width 14.2 % (11.5-14.0); White Blood Count 16.6 K/mm3 (4.0-10.5)
[2019-09-04] MEDS: MOTRIN 400 MG PO PRN ×2 (09:13→19:18)
[2019-09-04] MEDS: FERREX 150 PO SCH (13:03)
[2019-09-04] MEDS: Colace 100 MG PO SCH ×2 (13:03→21:53)
[2019-09-05] MEDS: MOTRIN 400 MG PO PRN (02:59)
--- NOTE | 2019-09-05 08:59 | PCM.DS ---
Discharge Summary Date of Admission: 09/03/19 04:00 Admitting Physician: DARLINE CHINO Primary Care Provider: DARLINE CHINO Allergies Allergies codeine Allergy (Severe, Verified 09/03/19 03:50) Difficulty Breathing Penicillins Allergy (Severe, Verified 09/03/19 03:50) Swelling of Tongue and Lips throat swells shut lactose Allergy (Verified 09/03/19 03:50) morphine Allergy (Verified 09/03/19 03:50) Tightness of Throat Hospital Summary - Hospital Course Hospital Course: Pt came in as [address] Chino' at 39+ weeks in spontaneous labor and delivered precipitously with Dr. Reese. . She has been recovering well. Had 2 bp in 140s systolic, otherwise 110s-120s systolic. No PEDROZA/changes in vision. No dizziness when standing. Will be discharged to home today at 48h. F/u with Dr. Chino in 1 week due to mildly elevated BP. - Vitals & Intake/Output Vital Signs: Vital Signs Temperature 98.6 F 09/05/19 05:00 Pulse Rate 90 09/05/19 05:00 Respiratory Rate 20 09/05/19 05:00 Blood Pressure 115/55 09/05/19 05:00 O2 Sat by Pulse Oximetry Intake & Output: Intake & Output 09/02/19 09/03/19 09/04/19 09/05/19 11:59 11:59 11:59 11:59 Intake Total 1350 2000 Balance 1350 1999 Weight 95.254 kg - Lab Result Diagrams: 09/04/19 04:35 Micro Results-Entire Visit: Microbiology 09/03/19 03:38 Urine Culture - Final Urine, Void MIXED MAL; 3 OR MORE TYPES. NO PREDOMINANT ORGANISM. NO FURTHER WORKUP. PLEASE RESUBMIT IF CLINICALLY INDICATED. - Procedures and Test Procedures and Tests throughout Hospitalization: Therapy Orders & Screens 09/03/19 06:29 Standby STAT Comment: Diagnosis: R/O AROM, LABOR Discharge Exam General Appearance: no apparent distress, alert Neurologic Exam: oriented x 3, cooperative, other (pat refl negligible bilat) Eye Exam: eyes nml inspection Ears, Nose, Throat Exam: moist mucous membranes Neck Exam: normal inspection Respiratory Exam: normal breath sounds, lungs clear, No crackles/rales, No rhonchi, No wheezing Cardiovascular Exam: regular rate/rhythm, normal heart sounds, No murmur Gastrointestinal/Abdomen Exam: soft, normal bowel sounds, other (fundus firm under umbilicus), No tenderness Extremity Exam: normal inspection, swelling, No pedal edema Skin Exam: normal color, warm, dry, No rash Final Diagnosis/Problem List - Final Discharge Diagnosis/Problem (1) Spontaneous vaginal delivery Current Visit: Yes Status: Acute Assessment & Plan: doing well, home today. Recheck BP in 1 wk, just mild elevation here. Code(s): O80 - ENCOUNTER FOR FULL-TERM UNCOMPLICATED DELIVERY (2) Anemia Current Visit: Yes Status: Acute Assessment & Plan: mild; home on FeSO4 325 mg 1 po daily x 30d. Code(s): D64.9 - ANEMIA, UNSPECIFIED - Discharge Disposition: Home, Self-Care Condition: Good Prescriptions: New Docusate Sodium 100 mg [Colace 100 MG] 100 mg PO BID PRN #60 capsule PRN Reason: Constipation Ferrous Sulfate 325 mg [Feosol 325 mg] 325 mg PO DAILY #30 tablet Ibuprofen 800 mg PO TID PRN #35 tablet PRN Reason: Pain Continue Vit#96/Ferrous Fum/FA [ Tablet] 1 tab PO DAILY Follow up with: DARLINE CHINO MD [Primary Care Provider] - 1 Week
[2019-09-05] MEDS: Colace 100 MG PO SCH (10:10)
[2019-09-05] MEDS: FERREX 150 PO SCH (10:10)
[2019-09-05 11:08] VITALS: BP 119/63; PULSE 83
== END 2019-09-05 13:20 | disposition home or self-care (01) | DRG 807 ==
LOC: OB 02:42 → OBSVTOIN 04:00 → OB 04:00 → MED SURG 20:41
PROVIDERS: ADMIT Family Medicine; ATTEND Family Medicine
PROC: 10E0XZZ Delivery of Products of Conception, External Approach (ICD-10-PCS; principal; 2019-09-03)
DX: O80 Encounter for full-term uncomplicated delivery (principal); Z37.0 Single live birth; Z3A.39 39 weeks gestation of pregnancy
CPT/HCPCS: 36415; 80307; 81001; 83986; 85025; 87086; 87340; 94799; G0378; J2590; A9270-GY

== ENCOUNTER 2019-11-29 13:50 | Emergency (ER) | payer OTHER ==
[2019-11-29 14:05] VITALS: BP 144/90; PULSE 84; O2SAT 100
--- NOTE | 2019-11-29 14:30 | XRAY ---
Indication: Pain following fall. Comparison: None 2 view left ankle obtained. No bony, articular, or soft tissue abnormalities.
--- NOTE | 2019-11-29 14:40 | ERPHSYRPT ---
- History of Present Illness Time Seen by Provider: 11/29/19 14:20 Source: patient Patient Subjective Stated Complaint: Pt was going down her apartment steps yesterday and missed a step and twisted her left ankle causing pain and swelling , pt rates her pain as 10/10 Triage Nursing Assessment: Pt brought here by her boyfriend, pt's vitals wnl, left foot slightly swollen, more pain when walking, pulses normal, denies any other injuries Physician History: 19 years old female presented in the ER with chief complaint of left ankle pain. Patient reports she was going down stairs when she missed 1 step yesterday causing bending left ankle and heard a popping sound. Since then she is having worsening sharp shooting moderate to severe intensity pain especially with movements and weightbearing, partial relief with being still, more in the anterior left ankle area associated with swelling. No foot pain. No injury anywhere else. Allergies/Adverse Reactions: codeine Allergy (Severe, Verified 11/29/19 14:04) Difficulty Breathing Penicillins Allergy (Severe, Verified 11/29/19 14:04) Swelling of Tongue and Lips throat swells shut lactose Allergy (Verified 11/29/19 14:04) morphine Allergy (Verified 11/29/19 14:04) Tightness of Throat Hx Tetanus, Diphtheria Vaccination/Date Given: Yes Hx Influenza Vaccination/Date Given: No Hx Pneumococcal Vaccination/Date Given: No Travel Risk - International Travel Have you traveled outside of the country in past 3 weeks: No (N) Have you or anyone close to you been diagnosed with or: No Do your reside in a community with a known COVID-19 case?: Yes If Yes where:: [place] - Coronavirus Screening Has patient experienced Coronavirus symptoms: No - Review of Systems Constitutional: No Symptoms Eyes: No Symptoms Ears, Nose, & Throat: No Symptoms Respiratory: No Symptoms Cardiac: No Symptoms Abdominal/Gastrointestinal: No Symptoms Musculoskeletal: Fall, Injury, Joint Pain, Joint Swelling Skin: No Symptoms Neurological: No Symptoms Psychological: No Symptoms Endocrine: No Symptoms Hematologic/Lymphatic: No Symptoms Immunological/Allergic: No Symptoms - Past Medical History Pertinent Past Medical History: Yes Neurological History: No Pertinent History ENT History: No Pertinent History Cardiac History: No Pertinent History Respiratory History: No Pertinent History Endocrine Medical History: No Pertinent History Musculoskeletal History: No Pertinent History GI Medical History: No Pertinent History History: No Pertinent History Psycho-Social History: No Pertinent History Female Reproductive Disorders: No Pertinent History Other Medical History: IRREGULAR PERIODS STARTED ON CONTROL TO HELP CONTROL THEM, anemia, UTI - Past Surgical History Past Surgical History: Yes Neuro Surgical History: No Pertinent History Cardiac: No Pertinent History Respiratory: No Pertinent History Gastrointestinal: No Pertinent History, Cholecystectomy Genitourinary: No Pertinent History Musculoskeletal: No Pertinent History Female Surgical History: No Pertinent History Other Surgical History: TUBES AN . TONSILS ET ADNOIDS - Social History Smoking Status: Current every day smoker How long have you smoked: 6 yrs Exposure to second hand smoke: Yes Drug Use: none Patient Lives Alone: No - Female History Hx Last Menstrual Period: 11/21/2019 Hx Now: No - Nursing Vital Signs Nursing Vital Signs: Initial Vital Signs Temperature 98.2 F 11/29/19 13:53 Pulse Rate 84 11/29/19 13:53 Blood Pressure 144/90 11/29/19 13:53 O2 Sat by Pulse Oximetry 100 11/29/19 13:53 Pain Scale Pain Intensity 10 - Physical Exam General Appearance: no apparent distress Eyes, Ears, Nose, Throat Exam: normal ENT inspection, pharynx normal Neck Exam: normal inspection, non-tender, supple, full range of motion Cardiovascular/Respiratory Exam: normal breath sounds, regular rate/rhythm Back Exam: normal inspection Legs Exam: bilateral leg: non-tender, normal inspection, normal range of motion Knees Exam: bilateral knee: non-tender, normal inspection, normal range of motion, no evidence of injury Ankle Exam: right ankle: non-tender, normal inspection, normal range of motion, left ankle: bone tenderness (Medial malleolus), limited range of motion, pain, soft tissue tenderness (Left anterior ankle), swelling Foot Exam: right foot: non-tender, normal inspection, normal range of motion, no evidence of injury, left foot: pain (Upper anterior foot), soft tissue tenderness, swelling Neuro/Tendon Exam: normal sensation, normal motor functions, normal tendon functions Mental Status Exam: alert, oriented x 3, cooperative Skin Exam: normal color SpO2 Interpretation: normal SpO2: 100 Procedures - Splinting Location of Splint: Left, Ankle Type of Splint: Air Cast - Course Nursing assessment & vital signs reviewed: Yes Ordered Tests: Active Orders 24 hr Category Date Time Status ANKLE (2V) Stat Exams 11/29/19 14:22 Completed Medication Summary Discontinued Medications Generic Name Dose Route Start Last Admin Trade Name Bairon PRN Reason Stop Dose Admin Hydrocodone Bitart/Acetaminophen 1 tab 11/29/19 14:42 11/29/19 14:54 [place] 5/325 Mg PO 11/29/19 14:43 1 tab STAT ONE Administration Hydrocodone Bitart/Acetaminophen Confirm 11/29/19 14:53 [place] 5/325 Mg Administered 11/29/19 14:54 Dose 1 tab .ROUTE .STK-MED ONE - Progress Progress: improved, pain not gone completely, re-examined Progress Note: 11/29/19 patient has ankle sprain. Rule out fracture dislocation. Aircast, crutches and weightbearing as tolerated. Recommended outpatient follow-up with primary care and orthopedic surgery for reevaluation. Ibuprofen for symptomatic relief. Counseled pt/family regarding: diagnosis, need for follow-up, rad results - Departure Departure Disposition: Home Clinical Impression: Left ankle sprain Qualifiers: Encounter type: initial encounter Involved ligament of ankle: unspecified ligament Qualified Code(s): S93.402A - Sprain of unspecified ligament of left ankle, initial encounter Condition: Stable Critical Care Time: No Referrals: DARLINE CHINO MD [Primary Care Provider] - Follow Up with PCP/3 days VENKAT ROJAS NP [NON-STAFF PHY W/O PRIVILEGES] - (1-2 DAYS FOR RE EVALUATION) Instructions: Ankle Sprain (DC) Additional Instructions: Weightbearing as tolerated. Take Tylenol ibuprofen as needed. Apply ice, elevation and Aircast. Follow-up with primary care and Ortho clinic for reevaluation. Return to ER for any worsening. Prescriptions: Ibuprofen 600 mg PO Q6HPRN PRN 10 Days #20 tablet PRN Reason: Pain
[2019-11-29] MEDS ORDERED: NORCO 5/325 MG ONE (14:53)
[2019-11-29] MEDS: NORCO 5/325 MG PO ONE (14:54)
== END 2019-11-29 15:19 | disposition home or self-care (01) ==
LOC: ED 13:50
DX: S93.402A Sprain of unspecified ligament of left ankle, initial encounter (principal); X50.1XXA Overexertion from prolonged static or awkward postures, initial encounter; Y93.89 Activity, other specified; Y92.89 Other specified places as the place of occurrence of the external cause; M25.472 Effusion, left ankle; M25.572 Pain in left ankle and joints of left foot
CPT/HCPCS: 73600; 99284; A9270-GY

== ENCOUNTER 2020-02-20 05:37 | Day surgery (SDC) | payer OTHER ==
[2020-02-20] MEDS ORDERED: Lactated Ringers 1,000 ML IV SCH (06:30)
[2020-02-20] MEDS ORDERED: Zofran 4 MG/2 ML VIAL ONE (07:58)
[2020-02-20] MEDS ORDERED: Decadron 4 MG INJ ONE (07:58)
[2020-02-20] MEDS ORDERED: DIPRIVAN 200 MG/20 ML IV ONE (07:58)
[2020-02-20] MEDS ORDERED: SUBLIMAZE 100 MCG/2 ML ONE (07:58)
[2020-02-20 09:14] VITALS: O2SAT 98
[2020-02-20 09:59] VITALS: BP 140/72; PULSE 84
--- NOTE | 2020-02-21 07:51 | OP ---
SURGERY DATE/TIME: 02/20/2020 0757 PREOPERATIVE DIAGNOSIS: Abnormal uterine bleeding. POSTOPERATIVE DIAGNOSIS: Abnormal uterine bleeding. PROCEDURE: Hysteroscopy D&C. SURGEON: Suhail Gonzalez D.O. STRAIGHTEDGE MAN: Daniel Quintanilla certified surgical tech/first assistant. ANESTHESIA: General. ESTIMATED BLOOD LOSS: Minimal. COMPLICATIONS: None. INDICATIONS: The risks, benefits, indications and alternatives of the procedure were reviewed with the patient prior to the procedure. The patient understood the risk of infection, bleeding, bowel injury, bladder injury, ureteral injury, uterine perforation associated with the surgery and desires to have this surgery as a possible means to alleviate her current medical condition. DESCRIPTION OF PROCEDURE AND FINDINGS: At this point the patient is taken to the operating room, given general sedation, placed in dorsal lithotomy position, prepped and draped in the usual sterile fashion. A weighted speculum is then placed in the patient's vagina and the anterior lip of the cervix is grasped with a single tooth tenaculum. Endocervical dilators were advanced through the endocervical canal as a means to dilate the cervix. At this point a 5 mm hysteroscope was then placed in through the endocervical canal where visualization of the endometrial canal appeared to be within normal limits with no gross abnormalities located within the endometrial canal. From this point the hysteroscope was then removed and a curette was then placed into the fundus of the uterus and curettage performed in all quadrants of the uterus retrieving a mild amount of tissue. From this point hemostasis was obtained. All instruments were then removed from the patient's vaginal region. The patient was then taken out of the dorsal lithotomy position, taken out of anesthesia and was then taken to the recovery room in stable condition. All instruments and laps were accounted for x2.
== END 2020-02-20 09:45 | disposition home or self-care (01) ==
LOC: SDC 05:37
PROVIDERS: ATTEND Obstetrics & Gynecology
DX: N93.9 Abnormal uterine and vaginal bleeding, unspecified (principal)
CPT/HCPCS: 84703; J1100; J2405; J2704; J3010

== ENCOUNTER 2020-03-16 22:10 | Emergency (ER) | payer OTHER ==
[2020-03-16] MEDS ORDERED: ZOFRAN ODT 4 MG PO ONE (22:40)
--- NOTE | 2020-03-16 22:40 | ERPHSYRPT ---
- History of Present Illness Time Seen by Provider: 03/16/20 22:34 Source: patient Exam Limitations: no limitations Patient Subjective Stated Complaint: "I've vomited four times today and my employer said I need to get checked out." Triage Nursing Assessment: Pt presented alert et oriented x3 answering questions appropriately. Pt reported 4 episodes of vomiting onset around noon. Pt reported recently starting a new control pill that she had only been on for two days. Pt denied any recent illness/injury. Pt reported associated nausea and denied diarrhea. Pupils 3mm brisk reaction. Oral mucosa pink/moist. Neck supple non-tender. Symmetrical chest expansion. S1/S2 clear. Lungs clear with adequate airflow. Abdomen soft non-tender without palpable organomegaly. Bowel sounds present throghout all quadrants. Radial pulses equal bilateral. No noted dependent edema. 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 SHe has had emesis x 4 since noon, and has brief nausea prior , but no abd pain , urinary symptoms or discharge; no fever. no different foods of person ill contacts; just changed BC pill yesterday. abd is soft and nontender without peritoneal signs or masses. Timing/Duration: today Severity: moderate Modifying Factors: Improves With: eating Associated Symptoms: nausea, vomiting Allergies/Adverse Reactions: codeine Allergy (Severe, Verified 03/16/20 22:14) Difficulty Breathing Penicillins Allergy (Severe, Verified 03/16/20 22:14) Swelling of Tongue and Lips throat swells shut lactose Allergy (Verified 03/16/20 22:14) morphine Allergy (Verified 03/16/20 22:14) Tightness of Throat Home Medications: Acetaminophen [Tylenol] 325 mg PO Q4H PRN PRN 02/19/20 [History] Ferrous Sulfate 325 mg PO DAILY 02/19/20 [History] Norgestrel-Ethinyl Estradiol [Cryselle-28 Tablet] 1 each PO DAILY 03/16/20 [History] Hx Tetanus, Diphtheria Vaccination/Date Given: Yes Hx Influenza Vaccination/Date Given: No Hx Pneumococcal Vaccination/Date Given: No Travel Risk - International Travel Have you traveled outside of the country in past 3 weeks: No - Coronavirus Screening Are you exhibiting any of the following symptoms?: No Symptoms: Vomiting/Diarrhea Close contact with a COVID-19 positive Pt in past 14-21 Days: No - Review of Systems Constitutional: No Fever, No Chills Eyes: No Symptoms Ears, Nose, & Throat: No Symptoms Respiratory: No Cough, No Dyspnea Cardiac: No Chest Pain, No Edema, No Syncope Abdominal/Gastrointestinal: Nausea, Vomiting, No Abdominal Pain, No Diarrhea Genitourinary Symptoms: No Dysuria Musculoskeletal: No Back Pain, No Neck Pain Skin: No Rash Neurological: No Dizziness, No Focal Weakness, No Sensory Changes Psychological: No Symptoms Endocrine: No Symptoms All Other Systems: Reviewed and Negative - Past Medical History Pertinent Past Medical History: Yes Neurological History: No Pertinent History ENT History: No Pertinent History Cardiac History: No Pertinent History Respiratory History: No Pertinent History Endocrine Medical History: No Pertinent History Musculoskeletal History: No Pertinent History GI Medical History: No Pertinent History History: No Pertinent History Psycho-Social History: Anxiety, Depression Female Reproductive Disorders: No Pertinent History Other Medical History: IRREGULAR PERIODS STARTED ON CONTROL TO HELP C ONTROL THEM, anemia, UTI in the past - Past Surgical History Past Surgical History: Yes Neuro Surgical History: No Pertinent History Cardiac: No Pertinent History Respiratory: No Pertinent History Gastrointestinal: Cholecystectomy Genitourinary: No Pertinent History Musculoskeletal: No Pertinent History Female Surgical History: No Pertinent History Other Surgical History: tubes in ears - Social History Smoking Status: Current every day smoker How long have you smoked: 4 years Exposure to second hand smoke: Yes Drug Use: none Patient Lives Alone: No - Female History Hx Last Menstrual Period: 03/05/20 Hx Now: No - Nursing Vital Signs Nursing Vital Signs: Initial Vital Signs Temperature 99.1 F 03/16/20 22:11 Pulse Rate 70 03/16/20 22:11 Respiratory Rate 16 03/16/20 22:11 Blood Pressure 136/78 03/16/20 22:11 O2 Sat by Pulse Oximetry 98 03/16/20 22:11 Pain Scale Pain Intensity 0 - Physical Exam General Appearance: no apparent distress, alert Eye Exam: PERRL/EOMI, eyes nml inspection Ears, Nose, Throat Exam: normal ENT inspection, TMs normal, pharynx normal, moist mucous membranes Neck Exam: normal inspection, non-tender, supple, full range of motion Respiratory Exam: normal breath sounds, lungs clear, No respiratory distress Cardiovascular Exam: regular rate/rhythm, normal heart sounds, normal peripheral pulses Gastrointestinal/Abdomen Exam: soft, normal bowel sounds, No tenderness, No mass Pelvic Exam: deferred Rectal Exam: deferred Back Exam: normal inspection, normal range of motion, No CVA tenderness, No vertebral tenderness Extremity Exam: normal inspection, normal range of motion, pelvis stable Neurologic Exam: alert, oriented x 3, cooperative, normal mood/affect, nml cerebellar function, nml station & gait, sensation nml, No motor deficits Skin Exam: normal color, warm, dry, No rash Lymphatic Exam: No adenopathy SpO2: 98 - Course Nursing assessment & vital signs reviewed: Yes Ordered Tests: Active Orders 24 hr Category Date Time Status AMYLASE Stat Lab 03/16/20 22:40 Ordered CBC W DIFF Stat Lab 03/16/20 22:40 Ordered CMP Stat Lab 03/16/20 22:40 Ordered HCG,QUALITATIVE URINE Stat Lab 03/16/20 23:25 Completed LIPASE Stat Lab 03/16/20 22:40 Ordered Lactic Acid Stat Lab 03/16/20 22:40 Ordered UA W/RFX UR CULTURE Stat Lab 03/16/20 23:24 Completed Medication Summary Generic Name Dose Route Start Last Admin Trade Name Freq PRN Reason Stop Dose Admin Trimethoprim/Sulfamethoxazole 1 tab 03/17/20 00:07 Bactrim Ds Tablet PO 03/17/20 00:08 STAT STA Discontinued Medications Generic Name Dose Route Start Last Admin Trade Name Freq PRN Reason Stop Dose Admin Ondansetron HCl 4 mg 03/16/20 22:40 03/16/20 22:45 Zofran Odt 4 Mg PO 03/16/20 22:41 4 mg STAT ONE Administration Ondansetron HCl Confirm 03/16/20 22:44 Zofran Odt 4 Mg Administered 03/16/20 22:45 Dose 4 mg .ROUTE .STK-MED ONE Promethazine HCl 25 mg 03/16/20 23:14 03/16/20 23:17 Phenergan 25 Mg PO 03/16/20 23:15 25 mg STAT ONE Administration Promethazine HCl Confirm 03/16/20 23:17 Phenergan 25 Mg Administered 03/16/20 23:18 Dose 25 mg .ROUTE .STK-MED ONE Lab/Rad Data: Laboratory Results 03/16/20 03/16/20 Range/Units 23:25 23:24 Urine Color YELLOW (YELLOW) Urine Appearance CLOUDY (CLEAR) Urine pH 5.0 (5-6) Ur Specific Junior 1.031 (1.005-1.025) Urine Protein NEGATIVE (Negative) Urine Ketones NEGATIVE (NEGATIVE) Urine Blood NEGATIVE (0-5) Jose Armando/ul Urine Nitrite NEGATIVE (NEGATIVE) Urine Bilirubin NEGATIVE (NEGATIVE) Urine Urobilinogen 2 (0-1) mg/dL Ur Leukocyte Esterase SMALL (NEGATIVE) Urine WBC (Auto) 6-10 (0-5) /HPF Urine RBC (Auto) 0-2 (0-2) /HPF U Epithel Cells (Auto) RARE (FEW) /HPF Urine Bacteria (Auto) RARE (NEGATIVE) /HPF Urine Mucus (Auto) SLIGHT (NEGATIVE) /HPF Urine Culture Reflexed NO (NO) Urine Glucose NEGATIVE (NEGATIVE) mg/dL Urine HCG, Qual NEGATIVE (Negative) - Progress Progress: improved, re-examined Progress Note: 03/16/20 23:53 vomiting stopped with meds. pt wishes to decline furhter testing at this time and just treat her early UTi and f/u PCP and return if not resolving - there is still no abd pain and abd is nontender- pt is advised that there could be pathology evolving undetected with need for furhter w/u and testing to rule out more serious events - she chooses to f/u outpt with PCP rather than further w/u in ER at this time and has the capacity to make this choice. 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 You should stay off work until vomiting stops or the cause is found. THere may be an early urinary infection , so we will start antibiotics for this and you should followup with your DrOnelia to retest your urine to confirm this is resolved after antbiotics. return meantime if any fever, pain vomiting continues or other concerns. Prescriptions: Promethazine HCl 25 mg [Phenergan 25 mg] 25 mg PO Q6HPRN PRN #20 tablet PRN Reason: Nausea Smz/Tmp Ds Tablet [Bactrim Ds Tablet] 1 tab PO Q12H #20 tablet
[2020-03-16] MEDS ORDERED: ZOFRAN ODT 4 MG ONE (22:44)
[2020-03-16] MEDS ORDERED: PHENERGAN 25 MG PO ONE (23:14)
[2020-03-16] MEDS ORDERED: PHENERGAN 25 MG ONE (23:17)
[2020-03-16 23:32] LABS: Appearance CLOUDY (CLEAR); Bacteria RARE /HPF (NEGATIVE); Bilirubin NEGATIVE (NEGATIVE); Blood NEGATIVE Ery/ul (0-5); Epithelial Cells RARE /HPF (FEW); Glucose NEGATIVE (NEGATIVE); Ketones NEGATIVE (NEGATIVE); Leukocyte Esterase SMALL (NEGATIVE); Mucus SLIGHT /HPF (NEGATIVE); Nitrite NEGATIVE (NEGATIVE); Protein,Urine Dip NEGATIVE (Negative); RBC 0-2 /HPF (0-2); Specific Gravity 1.031 (1.005-1.025); Urobilinogen 2 mg/dL (0-1)
[2020-03-17] MEDS ORDERED: BACTRIM DS TABLET PO STA (00:07)
[2020-03-17 00:09] VITALS: O2SAT 98
[2020-03-17] MEDS ORDERED: BACTRIM DS TABLET PO ONE (00:10)
[2020-03-17 00:26] VITALS: BP 141/83; PULSE 71
== END 2020-03-17 00:26 | disposition home or self-care (01) ==
LOC: ED 22:10
DX: N39.0 Urinary tract infection, site not specified (principal); R11.10 Vomiting, unspecified
CPT/HCPCS: 81001; 84703; 99284; Q0162; A9270-GY

== ENCOUNTER 2020-03-19 16:09 | Emergency (ER) | payer OTHER ==
[2020-03-19 18:12] VITALS: PULSE 82; O2SAT 98
[2020-03-19] MEDS ORDERED: TYLENOL EXTRA STRENGTH 500 MG PO STA (18:44)
[2020-03-19] MEDS ORDERED: TYLENOL EXTRA STRENGTH 500 MG ONE (18:46)
--- NOTE | 2020-03-19 19:44 | ERPHSYRPT ---
- History of Present Illness Time Seen by Provider: 03/19/20 18:15 Source: patient Exam Limitations: no limitations Patient Subjective Stated Complaint: "My right ear has been hurting for about a week now. The pain goes into the right side of my head too. I have occasional hearing loss and ringing in that ear." Triage Nursing Assessment: Pt presents to ER with complaints of right sided ear pain x 1 week. Rates pain 10/10 scale. States pain is maknig her have nausea. Ear appears WNL. No redness, drainage, or abnormalities noted from what I can see. Pt is alert and oriented x 3. Pt respirations are easy and unlabored. Pt is alert and oriented x 3. Pt is able to ambulate without difficulty. Denies any other complaints. Physician History: Patient is a 19-year-old female presents to our ED with complaints of right ear pain. Patient has a history of recurrent ear infections. Patient is required ear tubes as a child. Patient states her right ear has been hurting intermittently for approximately 1 week. Patient states the pain sometimes shoots to the side of her head. Pain rated 10 out of 10 at its worse. Patient took pain medication prior to arrival. Pain is mild to moderate at this time. Patient declined pain medication. No trauma. No fever. No neck pain. No photophobia. Patient has no meningeal signs. No associated nausea or vomiting. No rash. No diaphoresis. No chest pain or shortness of breath. Patient is otherwise healthy. She voices no other complaints at this time. Timing/Duration: week(s) (1 week) Severity: moderate Modifying Factors: Improves With: nothing Associated Symptoms: No nausea, No vomiting, No abdominal pain, No shortness of breath, No heartburn, No chest pain, No headaches, No loss of appetite, No syncope Allergies/Adverse Reactions: codeine Allergy (Severe, Verified 03/19/20 17:57) Difficulty Breathing Penicillins Allergy (Severe, Verified 03/19/20 17:57) Swelling of Tongue and Lips throat swells shut lactose Allergy (Verified 03/19/20 17:57) morphine Allergy (Verified 03/19/20 17:57) Tightness of Throat Home Medications: Acetaminophen [Tylenol] 325 mg PO Q4H PRN PRN 02/19/20 [History] Ferrous Sulfate 325 mg PO BID 02/19/20 [History] Norgestrel-Ethinyl Estradiol [Cryselle-28 Tablet] 1 each PO DAILY 03/16/20 [History] Hx Tetanus, Diphtheria Vaccination/Date Given: Yes Hx Influenza Vaccination/Date Given: No (allergic to flu injection, takes flu vaccine intranasal) Hx Pneumococcal Vaccination/Date Given: No Immunizations Up to Date: Yes Travel Risk - International Travel Have you traveled outside of the country in past 3 weeks: No - Coronavirus Screening Are you exhibiting any of the following symptoms?: No Close contact with a COVID-19 positive Pt in past 14-21 Days: No - Review of Systems Constitutional: No Symptoms, No Fever, No Chills Eyes: No Symptoms Ears, Nose, & Throat: No Symptoms Respiratory: No Symptoms, No Cough, No Dyspnea Cardiac: No Symptoms, No Chest Pain, No Edema, No Syncope Abdominal/Gastrointestinal: No Symptoms, No Abdominal Pain, No Nausea, No Vomiting, No Diarrhea Genitourinary Symptoms: No Symptoms, No Dysuria Musculoskeletal: No Symptoms, No Back Pain, No Neck Pain Skin: No Symptoms, No Rash Neurological: No Symptoms, No Dizziness, No Focal Weakness, No Sensory Changes Psychological: No Symptoms Endocrine: No Symptoms Hematologic/Lymphatic: No Symptoms All Other Systems: Reviewed and Negative - Past Medical History Pertinent Past Medical History: Yes Neurological History: No Pertinent History ENT History: No Pertinent History Cardiac History: No Pertinent History Respiratory History: No Pertinent History Endocrine Medical History: No Pertinent History Musculoskeletal History: No Pertinent History GI Medical History: No Pertinent History History: No Pertinent History Psycho-Social History: Anxiety, Depression Female Reproductive Disorders: No Pertinent History Other Medical History: IRREGULAR PERIODS STARTED ON CONTROL TO HELP CONTROL THEM, anemia, UTI in the past - Past Surgical History Past Surgical History: Yes Neuro Surgical History: No Pertinent History Cardiac: No Pertinent History Respiratory: No Pertinent History Gastrointestinal: Cholecystectomy Genitourinary: No Pertinent History Musculoskeletal: No Pertinent History Female Surgical History: No Pertinent History Other Surgical History: tubes in ears - Social History Smoking Status: Current every day smoker How long have you smoked: 5 years Exposure to second hand smoke: No Drug Use: none Patient Lives Alone: No - Female History Hx Last Menstrual Period: 03/05/20 Hx Now: No - Nursing Vital Signs Nursing Vital Signs: Initial Vital Signs Temperature 98.2 F 03/19/20 18:11 Pulse Rate 82 03/19/20 18:11 Respiratory Rate 16 03/19/20 18:11 O2 Sat by Pulse Oximetry 98 03/19/20 18:11 Pain Scale Pain Intensity 10 - Physical Exam General Appearance: no apparent distress, alert Eye Exam: PERRL/EOMI, eyes nml inspection Ears, Nose, Throat Exam: normal ENT inspection, TMs normal, pharynx normal, moist mucous membranes, other (Right TM is bulging. There is no mastoid pain or tenderness.) Neck Exam: normal inspection, non-tender, supple, full range of motion Respiratory Exam: normal breath sounds, lungs clear, No respiratory distress Cardiovascular Exam: regular rate/rhythm, normal heart sounds, normal peripheral pulses Gastrointestinal/Abdomen Exam: soft, normal bowel sounds, No tenderness, No mass Back Exam: normal inspection, normal range of motion, No CVA tenderness, No vertebral tenderness Extremity Exam: normal inspection, normal range of motion, pelvis stable Neurologic Exam: alert, oriented x 3, cooperative, normal mood/affect, nml cerebellar function, nml station & gait, sensation nml, No motor deficits Skin Exam: normal color, warm, dry, No rash Lymphatic Exam: No adenopathy SpO2 Interpretation: normal SpO2: 98 O2 Delivery: Room Air - Course Nursing assessment & vital signs reviewed: Yes Ordered Tests: Medication Summary Discontinued Medications Generic Name Dose Route Start Last Admin Trade Name Bairon PRN Reason Stop Dose Admin Acetaminophen 1,000 mg 03/19/20 18:44 03/19/20 18:46 Tylenol Extra Strength 500 Mg PO 03/19/20 18:45 1,000 mg STAT STA Administration Acetaminophen Confirm 03/19/20 18:46 Tylenol Extra Strength 500 Mg Administered 03/19/20 18:47 Dose 1,000 mg .ROUTE .STMarketo-MED ONE - Progress Progress: improved Progress Note: 03/19/20 19:52 Patient reassessed. Patient declined pain medication. She is requesting antibiotics. Patient is allergic to penicillin. A course of clindamycin prescribed. Patient agrees to follow-up with her primary care doctor within 48 hours for reevaluation. Counseled pt/family regarding: diagnosis, need for follow-up - Departure Departure Disposition: Home Clinical Impression: Otitis media Condition: Stable Critical Care Time: No Referrals: DARLINE CHINO MD [Primary Care Provider] - Instructions: Serous Otitis Media Additional Instructions: Discharge/Care Plan JUNITO KAPOOR was seen on 03/19/20 in the Emergency Room. The patient was counseled regarding Diagnosis,Lab results, Imaging studies, need for follow up and when to return to the Emergency Room. Prescriptions given: Discharge Note I have spoken with the patient and/or caregivers. I have explained the patient's condition, diagnosis and treatment plan based on the information available to me at this time. I have answered the patient's and/or caregiver's questions and addressed any concerns. The patient and/or caregivers have as good understanding of the patient's diagnosis, condition and treatment plan as can be expected at this point. The vital signs have been stable. The patient's condition is stable and appropriate for discharge from the emergency department. The patient will pursue further outpatient evaluation with the primary care physician or other designated or consulting physician as outlined in the discharge instructions. The patient and/or caregivers are agreeable to this plan of care and follow-up instructions have been explained in detail. The patient and/or caregivers have received these instruction. The patient/and or caregivers are aware that any significant change in condition or worsening of symptoms should prompt an immediate return to this or the closest emergency department or call 911. Prescriptions: Clindamycin HCl 150 mg [Cleocin 150 mg Capsule] 2 cap PO TID 7 Days #42 capsule
== END 2020-03-19 19:52 | disposition home or self-care (01) ==
LOC: ED 16:09
DX: H66.91 Otitis media, unspecified, right ear (principal)
CPT/HCPCS: 99283; A9270-GY

== ENCOUNTER 2020-03-22 07:42 | Emergency (ER) | payer OTHER ==
--- NOTE | 2020-03-22 07:45 | ERPHSYRPT ---
- History of Present Illness Time Seen by Provider: 03/22/20 07:45 Source: patient Exam Limitations: no limitations Physician History: This is a 19-year-old white female who was here in this emergency department 3 days ago for the similar complaint of right earache. She was diagnosed with otitis media on the right. She was placed on clindamycin. She is just been using [id number] Tylenol and ibuprofen. The pain is not controlled. She has not had fevers. She was seen by her nurse practitioner. No changes were made. In speaking with the patient, she states she is never had Keflex before. She is never had Rocephin before. She specifically said that she has taken Parker in the past after her gallbladder surgery. She states that she did not have any allergic reaction to the Parker. She stated that the Parker made her sleepy. Timing/Duration: persistent Severity: moderate ENT Location: ear (R) Prearrival Treatment: over the counter meds, prescription meds Associated Symptoms: ear pain (R) Allergies/Adverse Reactions: codeine Allergy (Severe, Verified 03/22/20 07:59) Difficulty Breathing Penicillins Allergy (Severe, Verified 03/22/20 07:59) Swelling of Tongue and Lips throat swells shut lactose Allergy (Verified 03/22/20 07:59) morphine Allergy (Verified 03/22/20 07:59) Tightness of Throat Home Medications: Acetaminophen [Tylenol] 325 mg PO Q4H PRN PRN 02/19/20 [History] Ferrous Sulfate 325 mg PO BID 02/19/20 [History] Norgestrel-Ethinyl Estradiol [Cryselle-28 Tablet] 1 each PO DAILY 03/16/20 [History] Hx Tetanus, Diphtheria Vaccination/Date Given: Yes Hx Influenza Vaccination/Date Given: No (allergic to flu injection, takes flu vaccine intranasal) Hx Pneumococcal Vaccination/Date Given: No Travel Risk - International Travel Have you traveled outside of the country in past 3 weeks: No - Coronavirus Screening Are you exhibiting any of the following symptoms?: No Close contact with a COVID-19 positive Pt in past 14-21 Days: No - Review of Systems Constitutional: No Symptoms Eyes: No Symptoms Ears, Nose, & Throat: Ear Pain (Right) Respiratory: No Symptoms Cardiac: No Symptoms Abdominal/Gastrointestinal: No Symptoms Genitourinary Symptoms: No Symptoms Musculoskeletal: No Symptoms Skin: No Symptoms Neurological: No Symptoms Psychological: No Symptoms Endocrine: No Symptoms Hematologic/Lymphatic: No Symptoms Immunological/Allergic: No Symptoms All Other Systems: Reviewed and Negative - Past Medical History Pertinent Past Medical History: Yes Neurological History: No Pertinent History ENT History: No Pertinent History Cardiac History: No Pertinent History Respiratory History: No Pertinent History Endocrine Medical History: No Pertinent History Musculoskeletal History: No Pertinent History GI Medical History: No Pertinent History History: No Pertinent History Psycho-Social History: Anxiety, Depression Female Reproductive Disorders: No Pertinent History Other Medical History: IRREGULAR PERIODS STARTED ON CONTROL TO HELP CONTROL THEM, anemia, UTI in the past - Past Surgical History Past Surgical History: Yes Neuro Surgical History: No Pertinent History Cardiac: No Pertinent History Respiratory: No Pertinent History Gastrointestinal: Cholecystectomy Genitourinary: No Pertinent History Musculoskeletal: No Pertinent History Female Surgical History: No Pertinent History Other Surgical History: tubes in ears - Social History Smoking Status: Current every day smoker How long have you smoked: 5 years Exposure to second hand smoke: No Drug Use: none Patient Lives Alone: No - Nursing Vital Signs Nursing Vital Signs: Initial Vital Signs Temperature 98.4 F 03/22/20 07:50 Pulse Rate 88 03/22/20 07:50 Respiratory Rate 18 03/22/20 07:50 Blood Pressure 125/87 03/22/20 07:50 O2 Sat by Pulse Oximetry 98 03/22/20 07:50 Pain Scale Pain Intensity 10 - Physical Exam General Appearance: mild distress (Secondary to right earache), alert, anxiety Eye Exam: bilateral eye: normal inspection, PERRL, EOMI Ear Exam: right ear: erythema (Canal), swelling (Canal), tenderness, TM dull, left ear: canal normal, TM normal, bilateral ear: auricle normal Nasal Exam: normal inspection Throat Exam: normal Neck Exam: normal inspection, non-tender, supple, full range of motion, trachea midline, No lymphadenopathy (R), No lymphadenopathy (L) Cardiovascular/Respiratory Exam: chest non-tender Abdominal Exam: non-tender Neurologic Exam: alert, oriented x 3, cooperative, tax advisor II-XII nml as tested, nml cerebellar function, nml station & gait, sensation nml Skin Exam: normal color, warm, dry SpO2 Interpretation: normal O2 Delivery: Room Air - Course Nursing assessment & vital signs reviewed: Yes - Progress Progress: unchanged, pain not gone completely Counseled pt/family regarding: diagnosis, need for follow-up - Departure Departure Disposition: Home Clinical Impression: Right otitis media Condition: Stable Critical Care Time: No Referrals: DARLINE CHINO MD [Primary Care Provider] - Additional Instructions: Take medication as prescribed. Continue your oral antibiotic therapy. Follow- up with your primary care physician or hearth feeder on Wednesday March 25, 2020. Call today for an appointment. Prescriptions: Hydrocodone/APAP 5-325 Tab^^^ [Parker 5-325 Tablet^^^] 1 tab PO Q8H PRN PRN #7 tablet MDD 3 PRN Reason: Pain Prednisone 10 mg [Deltasone 10 mg] 10 mg PO TID #12 tablet
[2020-03-22] MEDS ORDERED: solu-MEDROL 125 MG IM ONE (08:18)
[2020-03-22] MEDS ORDERED: NORCO 5/325 MG PO ONE (08:18)
[2020-03-22] MEDS ORDERED: Rocephin 1000 MG INJ IM ONE (08:18)
[2020-03-22] MEDS ORDERED: NORCO 5/325 MG ONE (08:24)
[2020-03-22] MEDS ORDERED: solu-MEDROL 125 MG ONE (08:25)
[2020-03-22] MEDS ORDERED: Rocephin 1000 MG INJ ONE (08:25)
[2020-03-22 09:17] VITALS: BP 131/68; PULSE 96; O2SAT 100
== END 2020-03-22 09:35 | disposition home or self-care (01) ==
LOC: ED 07:42
DX: H66.91 Otitis media, unspecified, right ear (principal)
CPT/HCPCS: 96372; 99283; J0696; J2930; A9270-GY

== ENCOUNTER 2020-04-24 19:55 | Emergency (ER) | payer OTHER ==
[2020-04-24] MEDS ORDERED: Augmentin 875-125 Tablet PO ONE (20:29)
--- NOTE | 2020-04-24 20:39 | ERPHSYRPT ---
- History of Present Illness Time Seen by Provider: 04/24/20 20:13 Source: patient Exam Limitations: no limitations Patient Subjective Stated Complaint: pt c/o rt ear pain Triage Nursing Assessment: pt c/o rt ear pain for months, it gets better for awhile but the pain returns. Pt's rt inner ear is red. Pt c/o pain and tinnitis at times, diff hearing out of it if she covers her left ear sounds are muffled at that time. Physician History: 19 years old female presented in the ER with 2 days history of right earache, sharp nature moderate intensity without any significant aggravating or relieving factors. Denies any associated sore throat, nasal congestion, cough fever or chills. Patient report having multiple otitis media/5-6 a year needing antibiotics. Denies any hearing loss. Severity: moderate ENT Location: ear (R) Prearrival Treatment: no prearrival treatment Associated Symptoms: ear pain (R), headache Allergies/Adverse Reactions: codeine Allergy (Severe, Verified 03/22/20 07:59) Difficulty Breathing Penicillins Allergy (Severe, Verified 03/22/20 07:59) Swelling of Tongue and Lips throat swells shut lactose Allergy (Verified 03/22/20 07:59) morphine Allergy (Verified 03/22/20 07:59) Tightness of Throat Home Medications: Acetaminophen [Tylenol] 650 mg PO Q4H PRN PRN 02/19/20 [History] Ferrous Sulfate 325 mg PO BID 02/19/20 [History] Norgestrel-Ethinyl Estradiol [Cryselle-28 Tablet] 1 each PO DAILY 03/16/20 [History] Hx Tetanus, Diphtheria Vaccination/Date Given: Yes Hx Influenza Vaccination/Date Given: No Hx Pneumococcal Vaccination/Date Given: No Immunizations Up to Date: Yes Travel Risk - International Travel Have you traveled outside of the country in past 3 weeks: No - Coronavirus Screening Are you exhibiting any of the following symptoms?: No Close contact with a COVID-19 positive Pt in past 14-21 Days: No - Review of Systems Constitutional: No Symptoms Eyes: No Symptoms Ears, Nose, & Throat: Ear Pain Respiratory: No Symptoms Cardiac: No Symptoms Abdominal/Gastrointestinal: No Symptoms Musculoskeletal: No Symptoms Neurological: No Symptoms Psychological: No Symptoms Endocrine: No Symptoms Hematologic/Lymphatic: No Symptoms Immunological/Allergic: No Symptoms - Past Medical History Pertinent Past Medical History: Yes Neurological History: No Pertinent History ENT History: No Pertinent History Cardiac History: No Pertinent History Respiratory History: No Pertinent History Endocrine Medical History: No Pertinent History Musculoskeletal History: No Pertinent History GI Medical History: No Pertinent History History: No Pertinent History Psycho-Social History: Anxiety, Depression Female Reproductive Disorders: No Pertinent History Other Medical History: IRREGULAR PERIODS STARTED ON CONTROL TO HELP CONTROL THEM, anemia, UTI in the past - Past Surgical History Past Surgical History: Yes Neuro Surgical History: No Pertinent History Cardiac: No Pertinent History Respiratory: No Pertinent History Gastrointestinal: Cholecystectomy Genitourinary: No Pertinent History Musculoskeletal: No Pertinent History Female Surgical History: No Pertinent History Other Surgical History: tubes in ears - Social History Smoking Status: Current every day smoker How long have you smoked: 5 yrs Exposure to second hand smoke: Yes Drug Use: none Patient Lives Alone: No - Female History Hx Last Menstrual Period: 03/31/20 Hx Now: No - Nursing Vital Signs Nursing Vital Signs: Initial Vital Signs Temperature 98.8 F 04/24/20 20:11 Pulse Rate 100 H 04/24/20 20:11 Respiratory Rate 16 04/24/20 20:11 Blood Pressure 156/83 04/24/20 20:11 O2 Sat by Pulse Oximetry 99 04/24/20 20:11 Pain Scale Pain Intensity 10 - Physical Exam General Appearance: no apparent distress, alert Eye Exam: bilateral eye: normal inspection, PERRL, EOMI Ear Exam: right ear: erythema, TM red, left ear: TM normal, bilateral ear: auricle normal, canal normal Nasal Exam: normal inspection Throat Exam: normal Neck Exam: normal inspection, non-tender, supple, full range of motion Cardiovascular/Respiratory Exam: normal breath sounds, regular rate/rhythm Neurologic Exam: alert, oriented x 3, cooperative, roller inspector II-XII nml as tested Skin Exam: normal color SpO2 Interpretation: normal SpO2: 99 O2 Delivery: Room Air - Course Nursing assessment & vital signs reviewed: Yes Ordered Tests: Medication Summary Discontinued Medications Generic Name Dose Route Start Last Admin Trade Name Freq PRN Reason Stop Dose Admin Amoxicillin/Clavulanate Potassium 875 mg 04/24/20 20:29 Augmentin 875-125 Tablet PO 04/24/20 20:30 STAT ONE - Progress Progress: unchanged Progress Note: 04/24/20 20:36 Has right otitis media. No mastoid tenderness. Started on Augmentin. Recommended outpatient ENT follow-up. Discussed signs symptoms of worsening needing return to ER which he seems understanding. Tylenol/ibuprofen as needed for pain. Counseled pt/family regarding: diagnosis, need for follow-up - Departure Departure Disposition: Home Clinical Impression: Otitis media Qualifiers: Otitis media type: unspecified Chronicity: acute Qualified Code(s): H66.90 - Otitis media, unspecified, unspecified ear Condition: Stable Critical Care Time: No Referrals: DARLINE CHINO MD [Primary Care Provider] - Follow Up with PCP/3 days SYED VAZQUEZ [NON-STAFF PHY W/O PRIVILEGES] - Follow Up with PCP/3 days Instructions: Serous Otitis Media (DC) Additional Instructions: Take Tylenol/ibuprofen as needed for pain. Continue with antibiotics. Follow- up with primary care and ENT for reevaluation. Return to ER for any worsening. Prescriptions: Amox Tr/Potass Clav. 875 mg [Augmentin 875-125 Tablet] 875 mg PO BID 10 Days #20 tablet
[2020-04-24] MEDS ORDERED: Augmentin 875-125 Tablet ONE (20:44)
[2020-04-24 21:08] VITALS: BP 141/94; PULSE 85; O2SAT 100
== END 2020-04-24 21:07 | disposition home or self-care (01) ==
LOC: ED 19:55
DX: H66.90 Otitis media, unspecified, unspecified ear (principal); H92.01 Otalgia, right ear
CPT/HCPCS: 99283; A9270-GY

== ENCOUNTER 2020-05-02 18:20 | Emergency (ER) | payer OTHER ==
--- NOTE | 2020-05-02 19:14 | ERPHSYRPT ---
- History of Present Illness Time Seen by Provider: 05/02/20 18:30 Source: patient Exam Limitations: no limitations Patient Subjective Stated Complaint: pt here pain to right ear for months now, she is working on a referral to a ENT Triage Nursing Assessment: pt alert, skin w/d/p, has face mask in place, resp easy, skin w/d/p. no draiange from ear Physician History: Patient is a 19-year-old female presents to our ED with complaints of right ear pain. Pain has been ongoing for approximately 2 to 3 months. Patient has been treated with antibiotics and steroids. In spite her symptoms continue. No trauma. No fever. No neck pain. No headache. No difficulty hearing. No dizziness. Pain described as an ache that is localized. Palpation to the mastoid process on the right reproduces symptoms. He is currently trying to establish an appointment with an ENT physician. However she was told that she requires a referral. Patient currently has an appointment scheduled with her primary care doctor tomorrow to establish an ENT referral. Patient voiced no other complaints at this time. Timing/Duration: weeks (Have been ongoing for 2 to 3 months.) Severity: moderate ENT Location: ear (R) Prearrival Treatment: no prearrival treatment Modifying Factors: Improves With: nothing Associated Symptoms: ear pain (R), No cough, No fever, No chills, No change in hearing, No dizziness, No facial pain/swelling, No hearing loss, No jaw pain, No malaise, No motion sickness, No nasal congestion/drainage, No epistaxis, No nasal foreign body, No neck pain, No poor fluid intake, No ringing of ears, No swollen glands, No sore throat, No tooth pain Allergies/Adverse Reactions: codeine Allergy (Severe, Verified 03/22/20 07:59) Difficulty Breathing Penicillins Allergy (Severe, Verified 03/22/20 07:59) Swelling of Tongue and Lips throat swells shut influenza A (H1N1) virus vaccine [id number] 2008 [From influenza A (H1N1)] Allergy (Verified 05/02/20 18:31) lactose Allergy (Verified 03/22/20 07:59) morphine Allergy (Verified 03/22/20 07:59) Tightness of Throat Home Medications: Acetaminophen [Tylenol] 650 mg PO Q4H PRN PRN 07/13/20 [History] Ferrous Sulfate 325 mg PO BID 02/19/20 [History] Norgestrel-Ethinyl Estradiol [Cryselle-28 Tablet] 1 each PO DAILY 03/16/20 [History] Hx Tetanus, Diphtheria Vaccination/Date Given: Yes Hx Influenza Vaccination/Date Given: No Hx Pneumococcal Vaccination/Date Given: No Immunizations Up to Date: Yes Travel Risk - International Travel Have you traveled outside of the country in past 3 weeks: No - Coronavirus Screening Are you exhibiting any of the following symptoms?: No Close contact with a COVID-19 positive Pt in past 14-21 Days: No - Review of Systems Constitutional: No Symptoms, No Fever, No Chills Eyes: No Symptoms Ears, Nose, & Throat: No Symptoms Respiratory: No Symptoms, No Cough, No Dyspnea Cardiac: No Symptoms, No Chest Pain, No Edema, No Syncope Abdominal/Gastrointestinal: No Symptoms, No Abdominal Pain, No Nausea, No Vomiting, No Diarrhea Genitourinary Symptoms: No Symptoms, No Dysuria Musculoskeletal: No Symptoms, No Back Pain, No Neck Pain Skin: No Symptoms, No Rash Neurological: No Symptoms, No Dizziness, No Focal Weakness, No Sensory Changes Psychological: No Symptoms Endocrine: No Symptoms Hematologic/Lymphatic: No Symptoms Immunological/Allergic: No Symptoms All Other Systems: Reviewed and Negative - Past Medical History Pertinent Past Medical History: Yes Neurological History: No Pertinent History ENT History: No Pertinent History Cardiac History: No Pertinent History Respiratory History: No Pertinent History Endocrine Medical History: No Pertinent History Musculoskeletal History: No Pertinent History GI Medical History: No Pertinent History History: No Pertinent History Psycho-Social History: Anxiety, Depression Female Reproductive Disorders: No Pertinent History Other Medical History: IRREGULAR PERIODS STARTED ON CONTROL TO HELP CONTROL THEM, anemia, UTI in the past - Past Surgical History Past Surgical History: Yes Neuro Surgical History: No Pertinent History Cardiac: No Pertinent History Respiratory: No Pertinent History Gastrointestinal: Cholecystectomy Genitourinary: No Pertinent History Musculoskeletal: No Pertinent History Female Surgical History: No Pertinent History Other Surgical History: tubes in ears - Social History Smoking Status: Current every day smoker How long have you smoked: 5 yrs Exposure to second hand smoke: Yes Drug Use: none Patient Lives Alone: No - Female History Hx Last Menstrual Period: now Hx Now: No - Nursing Vital Signs Nursing Vital Signs: Initial Vital Signs Temperature 98.4 F 05/02/20 18:24 Pulse Rate 80 05/02/20 18:24 Respiratory Rate 16 05/02/20 18:24 Blood Pressure 159/13 05/02/20 18:24 O2 Sat by Pulse Oximetry 98 05/02/20 18:24 Pain Scale Pain Intensity 6 - Physical Exam General Appearance: no apparent distress, alert Eye Exam: bilateral eye: normal inspection, PERRL, EOMI Ear Exam: right ear: tenderness (Right TM tenderness.), left ear: auricle normal, canal normal, TM normal, bleeding Nasal Exam: normal inspection, No active bleeding, No discharge, No dried blood, No foreign body Throat Exam: pharynx normal, moist mucus membranes, No tonsillar exudate Neck Exam: normal inspection, non-tender, supple, full range of motion, trachea midline Cardiovascular/Respiratory Exam: normal breath sounds, regular rate/rhythm Abdominal Exam: non-tender, soft Neurologic Exam: alert, oriented x 3, sensation nml, No motor deficits Skin Exam: normal color, warm, dry SpO2 Interpretation: normal SpO2: 98 O2 Delivery: Room Air - Course Nursing assessment & vital signs reviewed: Yes - CT Exams Other CT Interpretation: Tele-radiologist Report (Worsens. Normal CT IACs including mastoids.) Ordered Tests: Active Orders 24 hr Category Date Time Status IAC W/O CONTRAST [CT] Routine Exams 05/02/20 19:05 Taken HCG,QUALITATIVE URINE Stat Lab 05/02/20 19:09 Completed Lab/Rad Data: Laboratory Results 05/02/20 Range/Units 19:09 Urine HCG, Qual NEGATIVE (Negative) - Progress Progress: improved Progress Note: 05/02/20 20:27 Patient reassessed. Pain somewhat improved. Patient is requesting to leave AMA as her daughter is with the counseling director. Patient states her daughter has been vomiting and [facility] is requesting that patient come home. CT scan result is not available. Patient does not want to wait. Patient will be leaving AGAINST MEDICAL ADVICE. Patient understand that leaving AGAINST MEDICAL ADVICE may result in delayed diagnosis, worsening of symptoms, increased risk morbidity, mortality, short and long-term disability including . In spite of her risks patient has decided to leave AGAINST MEDICAL ADVICE. She is appropriate to make informed independent medical decisions. An AMA form has been completed. Patient understand that she may return to our ED at any time if she changes her mind. Patient agrees to follow-up with her primary care doctor within 48 hours for evaluation. Patient voices no other complaints or concerns at this time. Counseled pt/family regarding: lab results, diagnosis, need for follow-up - Departure Departure Disposition: AMA Clinical Impression: Otalgia, Pain of right mastoid Condition: Stable Critical Care Time: No Referrals: DARLINE CHINO MD [Primary Care Provider] - Instructions: Eustachian Tube Problems (DC) Additional Instructions: Discharge/Care Plan JUNITO KAPOOR was seen on 05/02/20 in the Emergency Room. The patient was counseled regarding Diagnosis,Lab results, Imaging studies, need for follow up and when to return to the Emergency Room. Prescriptions given: Discharge Note I have spoken with the patient and/or caregivers. I have explained the patient's condition, diagnosis and treatment plan based on the information available to me at this time. I have answered the patient's and/or caregiver's questions and addressed any concerns. The patient and/or caregivers have as good understanding of the patient's diagnosis, condition and treatment plan as can be expected at this point. The vital signs have been stable. The patient's condition is stable and appropriate for discharge from the emergency department. The patient will pursue further outpatient evaluation with the primary care physician or other designated or consulting physician as outlined in the discharge instructions. The patient and/or caregivers are agreeable to this plan of care and follow-up instructions have been explained in detail. The patient and/or caregivers have received these instruction. The patient/and or caregivers are aware that any significant change in condition or worsening of symptoms should prompt an immediate return to this or the closest emergency department or call 911.
[2020-05-02 20:04] VITALS: BP 136/93; PULSE 80
[2020-05-02 20:31] VITALS: O2SAT 98
--- NOTE | 2020-05-02 21:10 | XRAY ---
Exam: CT of the internal auditory canals without IV contrast 05/02/2020. CTDI: 33.74 mGy Comparison: None. Indication: 19-year-old female with right mastoid and auditory canal stabbing pain, ear lobe has been burning for several months, rule out Meniere's disease, history of prior "ear tubes". Technique: Thin section non-IV contrast axial images were obtained through the temporal bones. Reconstructed coronal and sagittal images were created and reviewed. In addition, sagittal and coronal coned-down images of each temporal bone were imaged separately. Findings: The internal auditory canals, cochlea, and semicircular canals appear symmetric bilaterally. The vestibular aqueduct appears unremarkable bilaterally. The middle ear cavities appear normal. The mastoid air cells are well aerated without effusion or soft tissue density. I see no significant abnormality of either external artery canal. Minimal soft tissue density is seen on the first image within the left maxillary sinus which could represent the most superior aspect of a polyp or retention cyst within the inferior portion of the left maxillary sinus. Impression: 1. The internal artery canals and mastoids appear unremarkable bilaterally. No other definite abnormality is seen within the inner ears.
== END 2020-05-02 20:35 | disposition home or self-care (01) ==
LOC: ED 18:20
DX: H92.01 Otalgia, right ear (principal)
CPT/HCPCS: 70480; 84703; 99284

== ENCOUNTER 2020-06-09 22:46 | Emergency (ER) | payer OTHER ==
--- NOTE | 2020-06-09 23:06 | ERPHSYRPT ---
- History of Present Illness Time Seen by Provider: 06/09/20 22:55 Source: patient Exam Limitations: no limitations Physician History: 19 years old female presented in the ER with chief complaint of left ankle pain sudden onset almost 15/20 minutes prior to arrival after she added big bag of laundry fell on her and she tripped and twisted her ankle. She is complaining of moderate intensity sharp pain with activity. She is still able to walk on it. Pain is more in the lateral aspect of ankle. Patient report having history of hairline fracture in the same ankle before. Method of Injury: fell, twisted Occurred: just prior to arrival Quality: sharpness Severity of Pain-Max: moderate Severity of Pain-Current: mild Lower Extremities Pain: ankle: left Modifying Factors: Improves With: immobilization, rest. Worsens With: movement Associated Symptoms: none Allergies/Adverse Reactions: codeine Allergy (Severe, Verified 06/09/20 23:01) Difficulty Breathing morphine Allergy (Severe, Verified 06/09/20 23:01) Tightness of Throat Penicillins Allergy (Severe, Verified 06/09/20 23:01) Swelling of Tongue and Lips throat swells shut influenza A (H1N1) virus vaccine m-serge-split 2008 [From influenza A (H1N1)] Allergy (Verified 06/09/20 23:01) lactose Allergy (Verified 06/09/20 23:01) Home Medications: Norgestrel-Ethinyl Estradiol [Cryselle-28 Tablet] 1 each PO DAILY 03/16/20 [History] Hx Tetanus, Diphtheria Vaccination/Date Given: Yes Hx Influenza Vaccination/Date Given: No Hx Pneumococcal Vaccination/Date Given: No - Review of Systems Constitutional: No Symptoms Eyes: No Symptoms Ears, Nose, & Throat: No Symptoms Respiratory: No Symptoms Cardiac: No Symptoms Abdominal/Gastrointestinal: No Symptoms Musculoskeletal: Injury, Joint Pain Skin: No Symptoms Neurological: No Symptoms Psychological: No Symptoms Endocrine: No Symptoms Hematologic/Lymphatic: No Symptoms Immunological/Allergic: No Symptoms - Past Medical History Pertinent Past Medical History: Yes Neurological History: No Pertinent History ENT History: No Pertinent History Cardiac History: No Pertinent History Respiratory History: No Pertinent History Endocrine Medical History: No Pertinent History Musculoskeletal History: No Pertinent History GI Medical History: No Pertinent History History: No Pertinent History Psycho-Social History: Anxiety, Depression Female Reproductive Disorders: No Pertinent History Other Medical History: IRREGULAR PERIODS STARTED ON CONTROL TO HELP CONTROL THEM, anemia, UTI in the past - Past Surgical History Past Surgical History: Yes Neuro Surgical History: No Pertinent History Cardiac: No Pertinent History Respiratory: No Pertinent History Gastrointestinal: Cholecystectomy Genitourinary: No Pertinent History Musculoskeletal: No Pertinent History Female Surgical History: No Pertinent History Other Surgical History: tubes in ears - Social History Smoking Status: Current every day smoker How long have you smoked: 5 yrs Exposure to second hand smoke: Yes Drug Use: none Patient Lives Alone: No - Female History Hx Now: No (UNKN) - Nursing Vital Signs Nursing Vital Signs: Initial Vital Signs Pulse Rate 108 H 06/09/20 22:52 Respiratory Rate 16 06/09/20 22:52 Blood Pressure 134/100 06/09/20 22:52 O2 Sat by Pulse Oximetry 100 06/09/20 22:52 Pain Scale Pain Intensity 8 - Physical Exam General Appearance: no apparent distress, alert Neck Exam: normal inspection, full range of motion Cardiovascular/Respiratory Exam: normal breath sounds, regular rate/rhythm Back Exam: normal inspection Ankle Exam: right ankle: non-tender, normal inspection, normal range of motion, no evidence of injury, left ankle: bone tenderness (LATERAL MALLEOLUS ), pain, soft tissue tenderness, swelling Foot Exam: left foot: swelling Neuro/Tendon Exam: normal sensation, normal motor functions, normal tendon functions Mental Status Exam: alert, oriented x 3, cooperative Skin Exam: normal color SpO2 Interpretation: normal O2 Delivery: Room Air Ordered Tests: Active Orders 24 hr Category Date Time Status ANKLE (3 VIEWS) Stat Exams 06/09/20 23:11 Taken - Progress Progress: unchanged Progress Note: 06/09/20 23:25 She is offered pain medication which she refused. I have obtained x-rays which did not show any obvious fracture dislocation when reviewed by me. Official read is pending. I believe he has ligamentous strain/sprain, placed in a Aircast, Tylenol/ibuprofen and weightbearing as tolerated. Recommended outpatient primary care/Ortho clinic follow-up. Discussed signs symptoms of worsening needing return to ER which she seems understanding. Counseled pt/family regarding: diagnosis, need for follow-up, rad results - Departure Departure Disposition: Home Clinical Impression: Ankle sprain Qualifiers: Encounter type: initial encounter Involved ligament of ankle: unspecified ligament Laterality: left Qualified Code(s): S93.402A - Sprain of unspecified ligament of left ankle, initial encounter Condition: Stable Critical Care Time: No Referrals: DARLINE CHINO MD [Primary Care Provider] - Follow Up with PCP/3 days VENKAT ROJAS NP [NON-STAFF PHY W/O PRIVILEGES] - Follow Up with PCP/3 days Instructions: Ankle Sprain (DC) Additional Instructions: Weightbearing as tolerated. Take Tylenol/ibuprofen as needed for pain. Avoid exertional activities. Follow-up with primary care and Ortho clinic for reevaluation. Return to ER for worsening pain, swelling etc. Prescriptions: Ibuprofen 600 mg PO Q6HPRN PRN 10 Days #20 tablet PRN Reason: Pain
[2020-06-09 23:30] VITALS: BP 153/85; PULSE 97; O2SAT 99
--- NOTE | 2020-06-10 08:58 | XRAY ---
Indication: Pain following fall. Comparison: November 29, 2019. 3 view left ankle obtained. Again no bony, articular, or soft tissue abnormalities.
== END 2020-06-09 23:41 | disposition home or self-care (01) ==
LOC: ED 22:46
DX: S93.402A Sprain of unspecified ligament of left ankle, initial encounter (principal); M25.572 Pain in left ankle and joints of left foot; X50.1XXA Overexertion from prolonged static or awkward postures, initial encounter; Y93.89 Activity, other specified; Y92.9 Unspecified place or not applicable
CPT/HCPCS: 73610; 99283

== ENCOUNTER 2020-06-26 12:58 | Emergency (ER) | payer OTHER ==
[2020-06-26 13:14] VITALS: O2SAT 98
--- NOTE | 2020-06-26 13:28 | ERPHSYRPT ---
- History of Present Illness Time Seen by Provider: 06/26/20 13:15 Source: patient Exam Limitations: no limitations Patient Subjective Stated Complaint: pt here for a fall down 6 stairs, she states she had her child in her arms and slipped and fell. now co pain to left ankle and foot, she is in a cam boot for 2 weeks after spraining left ankle, she is scheduled for MRI soon on that ankle Triage Nursing Assessment: pt alert, arrived per wc, face mask in place, resp easy, skin w/d/p. cam boot taken off and no swelling or bruising Physician History: This is a 20-year-old obese white female who has a history in the distant past of hairline fracture to her left ankle. She was seen in this emergency department on 06/09/2020 and then again by orthopedic clinic on 06/13/2020 for left foot and ankle pain. Patient is being followed by the orthopedic clinic and it is anticipated that she will be receiving an MRI of the left foot and ankle in the future. Today, the patient tripped and fell down some steps injuring her left foot and ankle. There are no other complaints of pain or injuries. She can bear weight but it hurts to do so. Patient is allergic to codeine but has taken [place] in the past without any difficulties. Occurred: this morning Quality: aching Severity of Pain-Max: mild Severity of Pain-Current: mild Lower Extremities Pain: foot: left, ankle: left Modifying Factors: Improves With: movement (Hurts) Associated Symptoms: other (Hurts to bear weight but is able to do so) Allergies/Adverse Reactions: codeine Allergy (Severe, Verified 06/26/20 13:02) Difficulty Breathing morphine Allergy (Severe, Verified 06/26/20 13:02) Tightness of Throat Penicillins Allergy (Severe, Verified 06/26/20 13:02) Swelling of Tongue and Lips throat swells shut influenza A (H1N1) virus vaccine m-serge-split 2008 [From influenza A (H1N1)] Allergy (Verified 06/26/20 13:02) lactose Allergy (Verified 06/26/20 13:02) Home Medications: Norgestrel-Ethinyl Estradiol [Cryselle-28 Tablet] 1 each PO DAILY 03/16/20 [History] Hx Tetanus, Diphtheria Vaccination/Date Given: Yes Hx Influenza Vaccination/Date Given: No Hx Pneumococcal Vaccination/Date Given: Yes Travel Risk - International Travel Have you traveled outside of the country in past 3 weeks: No - Coronavirus Screening Are you exhibiting any of the following symptoms?: No Close contact with a COVID-19 positive Pt in past 14-21 Days: No - Review of Systems Constitutional: No Symptoms Eyes: No Symptoms Ears, Nose, & Throat: No Symptoms Respiratory: No Symptoms Cardiac: No Symptoms Abdominal/Gastrointestinal: No Symptoms Genitourinary Symptoms: No Symptoms Musculoskeletal: Fall, Injury (Left foot and ankle) Skin: No Symptoms Neurological: No Symptoms Psychological: No Symptoms Endocrine: No Symptoms Hematologic/Lymphatic: No Symptoms Immunological/Allergic: No Symptoms All Other Systems: Reviewed and Negative - Past Medical History Pertinent Past Medical History: Yes Neurological History: No Pertinent History ENT History: No Pertinent History Cardiac History: No Pertinent History Respiratory History: No Pertinent History Endocrine Medical History: No Pertinent History Musculoskeletal History: No Pertinent History GI Medical History: No Pertinent History History: No Pertinent History Psycho-Social History: Anxiety, Depression Female Reproductive Disorders: No Pertinent History Other Medical History: IRREGULAR PERIODS STARTED ON CONTROL TO HELP CONTROL THEM, anemia, UTI in the past - Past Surgical History Past Surgical History: Yes Neuro Surgical History: No Pertinent History Cardiac: No Pertinent History Respiratory: No Pertinent History Gastrointestinal: Cholecystectomy Genitourinary: No Pertinent History Musculoskeletal: No Pertinent History Female Surgical History: No Pertinent History Other Surgical History: tubes in ears - Social History Smoking Status: Current every day smoker How long have you smoked: 5 yrs Exposure to second hand smoke: Yes Drug Use: none Patient Lives Alone: No - Female History Hx Last Menstrual Period: may Hx Now: No (unsure) - Nursing Vital Signs Nursing Vital Signs: Initial Vital Signs Temperature 97.2 F 06/26/20 13:05 Pulse Rate 108 H 06/26/20 13:05 Respiratory Rate 18 06/26/20 13:05 Blood Pressure 156/93 06/26/20 13:05 O2 Sat by Pulse Oximetry 98 06/26/20 13:05 Pain Scale Pain Intensity 8 - Physical Exam General Appearance: no apparent distress, alert, anxiety, obese Eyes, Ears, Nose, Throat Exam: normal ENT inspection, moist mucous membranes Neck Exam: normal inspection, non-tender, supple, full range of motion Cardiovascular/Respiratory Exam: chest non-tender Gastrointestinal/Abdominal Exam: non-tender Back Exam: normal inspection, normal range of motion, No CVA tenderness, No vertebral tenderness Hips Exam: bilateral: non-tender, normal inspection, normal range of motion, no evidence of injury Legs Exam: bilateral leg: non-tender, normal inspection, normal range of motion, no evidence of injury Knees Exam: bilateral knee: non-tender, normal inspection, normal range of motion, no evidence of injury Ankle Exam: right ankle: non-tender, left ankle: soft tissue tenderness, bilateral ankle: normal inspection, normal range of motion, no evidence of injury Foot Exam: right foot: non-tender, left foot: soft tissue tenderness (Dorsum), bilateral foot: normal inspection, normal range of motion, no evidence of injury Neuro/Tendon Exam: normal sensation, normal motor functions, normal tendon functions Mental Status Exam: alert, oriented x 3, cooperative Skin Exam: normal color, warm, dry SpO2 Interpretation: normal SpO2: 98 O2 Delivery: Room Air - Course Nursing assessment & vital signs reviewed: Yes Ordered Tests: Active Orders 24 hr Category Date Time Status ANKLE (3 VIEWS) Stat Exams 06/26/20 13:15 Completed FOOT (MINIMUM 3 VIEWS) Stat Exams 06/26/20 13:15 Completed - Progress Progress: unchanged, pain not gone completely Progress Note: 06/26/20 13:57 X-ray of the left ankle reveals no acute fracture or dislocation. X-ray of the left foot reveals no acute fracture or dislocation. Counseled pt/family regarding: diagnosis, need for follow-up, rad results - Departure Departure Disposition: Home Clinical Impression: Pain in joint involving left ankle and foot Condition: Stable Critical Care Time: No Referrals: DARLINE CHINO MD [Primary Care Provider] - Additional Instructions: Continue your management as prescribed by the orthopedic clinic. Follow-up with orthopedic clinic tomorrow for further management.
--- NOTE | 2020-06-26 13:50 | XRAY ---
Indication: Pain following injury. Comparison: June 09, 2020. 3 view left ankle continues to demonstrate normal bones, articulation, and soft tissues.
--- NOTE | 2020-06-26 13:50 | XRAY ---
Indication: Pain following fall. Comparison: None 3 nonweightbearing views left foot demonstrates normal bones, articulation, and soft tissues.
[2020-06-26 14:10] VITALS: BP 128/72; PULSE 79
== END 2020-06-26 14:54 | disposition home or self-care (01) ==
LOC: ED 12:58
DX: M25.572 Pain in left ankle and joints of left foot (principal); W10.9XXA Fall (on) (from) unspecified stairs and steps, initial encounter; Z79.899 Other long term (current) drug therapy
CPT/HCPCS: 73610; 73630; 99283

== ENCOUNTER 2020-06-30 21:55 | Emergency (ER) | payer OTHER ==
[2020-06-30] MEDS ORDERED: Sodium Chloride 0.9% 1000 ML 1,000 ML IV STA (22:22)
--- NOTE | 2020-06-30 22:27 | ERPHSYRPT ---
- History of Present Illness Time Seen by Provider: 06/30/20 22:14 Source: patient Exam Limitations: no limitations Patient Subjective Stated Complaint: . Triage Nursing Assessment: . Physician History: 20 years old 3 para 1 at almost 5 weeks gestation by LMP presented in the ER with chief complaint of passing a clot earlier this afternoon and having some spotting. Patient report she has a positive test at home. She is also complaining of mild pelvic cramping but denies any keysha bleeding. No urinary symptoms. No abdominal pain otherwise. Timing/Duration: today Severity: mild Allergies/Adverse Reactions: codeine Allergy (Severe, Verified 06/30/20 22:14) Difficulty Breathing morphine Allergy (Severe, Verified 06/30/20 22:14) Tightness of Throat Penicillins Allergy (Severe, Verified 06/30/20 22:14) Swelling of Tongue and Lips throat swells shut influenza A (H1N1) virus vaccine m-serge-split 2008 [From influenza A (H1N1)] Allergy (Verified 06/30/20 22:14) Rash lactose Allergy (Verified 06/30/20 22:14) Nausea and Vomiting Home Medications: Norgestrel-Ethinyl Estradiol [Cryselle-28 Tablet] 1 each PO DAILY 03/16/20 [History] Hx Tetanus, Diphtheria Vaccination/Date Given: Yes Hx Influenza Vaccination/Date Given: No Hx Pneumococcal Vaccination/Date Given: No Immunizations Up to Date: Yes Travel Risk - International Travel Have you traveled outside of the country in past 3 weeks: No - Coronavirus Screening Are you exhibiting any of the following symptoms?: No Close contact with a COVID-19 positive Pt in past 14-21 Days: No - Review of Systems Constitutional: No Symptoms Eyes: No Symptoms Ears, Nose, & Throat: No Symptoms Respiratory: No Symptoms Cardiac: No Symptoms Abdominal/Gastrointestinal: No Symptoms Genitourinary Symptoms: Vaginal Bleeding Musculoskeletal: No Symptoms Skin: No Symptoms Neurological: No Symptoms Psychological: No Symptoms Endocrine: No Symptoms Hematologic/Lymphatic: No Symptoms Immunological/Allergic: No Symptoms - Past Medical History Pertinent Past Medical History: Yes Neurological History: No Pertinent History ENT History: No Pertinent History Cardiac History: No Pertinent History Respiratory History: No Pertinent History Endocrine Medical History: No Pertinent History Musculoskeletal History: No Pertinent History GI Medical History: No Pertinent History History: No Pertinent History Psycho-Social History: Anxiety, Depression Female Reproductive Disorders: No Pertinent History Other Medical History: IRREGULAR PERIODS STARTED ON CONTROL TO HELP CONTROL THEM, anemia, HX UTI - Past Surgical History Past Surgical History: Yes Neuro Surgical History: No Pertinent History Cardiac: No Pertinent History Respiratory: No Pertinent History Gastrointestinal: Cholecystectomy Genitourinary: No Pertinent History Musculoskeletal: No Pertinent History Female Surgical History: No Pertinent History Other Surgical History: tubes in ears - Social History Smoking Status: Current every day smoker How long have you smoked: 7 years Exposure to second hand smoke: Yes Drug Use: none Patient Lives Alone: No - Female History Hx Last Menstrual Period: 05/22/20 Hx Now: Yes - Nursing Vital Signs Nursing Vital Signs: Initial Vital Signs Temperature 97.9 F 06/30/20 22:12 Pulse Rate 96 H 06/30/20 22:12 Respiratory Rate 18 06/30/20 22:12 Blood Pressure 150/93 06/30/20 22:12 O2 Sat by Pulse Oximetry 99 06/30/20 22:12 Pain Scale Pain Intensity 5 - Physical Exam General Appearance: no apparent distress Eye Exam: PERRL/EOMI, eyes nml inspection Ears, Nose, Throat Exam: normal ENT inspection, pharynx normal Neck Exam: normal inspection, non-tender, supple, full range of motion Respiratory Exam: normal breath sounds, lungs clear Cardiovascular Exam: regular rate/rhythm, normal heart sounds Gastrointestinal/Abdomen Exam: soft, normal bowel sounds, No tenderness Back Exam: normal inspection, normal range of motion Extremity Exam: normal inspection, normal range of motion, pelvis stable Neurologic Exam: alert, oriented x 3, cooperative Skin Exam: normal color SpO2 Interpretation: normal SpO2: 99 O2 Delivery: Room Air Ordered Tests: Active Orders 24 hr Category Date Time Status CBC W DIFF Stat Lab 06/30/20 22:35 Completed CMP Stat Lab 06/30/20 22:35 Completed CULTURE,URINE Stat Lab 06/30/20 22:25 Received HCG QUALITATIVE,SERUM Stat Lab 06/30/20 22:35 Completed UA W/RFX UR CULTURE Stat Lab 06/30/20 22:25 Completed Medication Summary Discontinued Medications Generic Name Dose Route Start Last Admin Trade Name Freq PRN Reason Stop Dose Admin Sodium Chloride 1,000 mls @ 999 mls/hr 06/30/20 22:22 06/30/20 23:12 Sodium Chloride 0.9% 1000 Ml IV 06/30/20 23:22 Not Given .Q1H1M STA Lab/Rad Data: Laboratory Result Diagrams 06/30/20 22:35 06/30/20 22:35 Laboratory Results 06/30/20 06/30/20 06/30/20 Range/Units 22:35 22:35 22:35 WBC 9.4 (4.0-10.5) K/mm3 RBC 4.34 (4.1-5.4) M/mm3 Hgb 11.0 L (12.0-16.0) gm/dl Hct 36.5 (35-47) % MCV 84.1 (78-100) fl MCH 25.3 L (26-32) pg MCHC 30.1 L (32-36) g/dl RDW 17.1 H (11.5-14.0) % Plt Count 370 (150-450) K/mm3 MPV 9.5 (7.5-11.0) fl Gran % 59.9 (36.0-66.0) % Eos # (Auto) 0.30 (0-0.5) Absolute Lymphs (auto) 2.71 (1.0-4.6) Absolute Monos (auto) 0.74 (0.0-1.3) Lymphocytes % 28.7 (24.0-44.0) % Monocytes % 7.8 (0.0-12.0) % Eosinophils % 3.2 (0.00-5.0) % Basophils % 0.4 (0.0-0.4) % Absolute Granulocytes 5.64 (1.4-6.9) Basophils # 0.04 (0-0.4) Sodium 138 (137-145) mmol/L Potassium 4.0 (3.5-5.1) mmol/L Chloride 107 (98-107) mmol/L Carbon Dioxide 23 (22-30) mmol/L Anion Gap 11.8 (5-15) MEQ/L BUN 8 (7-17) mg/dL Creatinine 0.52 (0.52-1.04) mg/dL Estimated GFR > 60.0 ML/MIN Glucose 107 H (74-106) mg/dL Calcium 9.3 (8.4-10.2) mg/dL Total Bilirubin 0.30 (0.2-1.3) mg/dL AST 22 (14-36) U/L ALT 19 (0-35) U/L Alkaline Phosphatase 76 (38-126) U/L Serum Total Protein 7.5 (6.3-8.2) g/dL Albumin 4.0 (3.5-5.0) g/dL Serum , Qual NEGATIVE (Negative) Urine Color (YELLOW) Urine Appearance (CLEAR) Urine pH (5-6) Ur Specific [place] (1.005-1.025) Urine Protein (Negative) Urine Ketones (NEGATIVE) Urine Blood (0-5) Jose Armando/ul Urine Nitrite (NEGATIVE) Urine Bilirubin (NEGATIVE) Urine Urobilinogen (0-1) mg/dL Ur Leukocyte Esterase (NEGATIVE) Urine WBC (Auto) (0-5) /HPF Urine RBC (Auto) (0-2) /HPF U Epithel Cells (Auto) (FEW) /HPF Urine Bacteria (Auto) (NEGATIVE) /HPF Urine Mucus (Auto) (NEGATIVE) /HPF Urine Culture Reflexed (NO) Urine Glucose (NEGATIVE) mg/dL 06/30/20 Range/Units 22:25 WBC (4.0-10.5) K/mm3 RBC (4.1-5.4) M/mm3 Hgb (12.0-16.0) gm/dl Hct (35-47) % MCV (78-100) fl MCH (26-32) pg MCHC (32-36) g/dl RDW (11.5-14.0) % Plt Count (150-450) K/mm3 MPV (7.5-11.0) fl Gran % (36.0-66.0) % Eos # (Auto) (0-0.5) Absolute Lymphs (auto) (1.0-4.6) Absolute Monos (auto) (0.0-1.3) Lymphocytes % (24.0-44.0) % Monocytes % (0.0-12.0) % Eosinophils % (0.00-5.0) % Basophils % (0.0-0.4) % Absolute Granulocytes (1.4-6.9) Basophils # (0-0.4) Sodium (137-145) mmol/L Potassium (3.5-5.1) mmol/L Chloride (98-107) mmol/L Carbon Dioxide (22-30) mmol/L Anion Gap (5-15) MEQ/L BUN (7-17) mg/dL Creatinine (0.52-1.04) mg/dL Estimated GFR ML/MIN Glucose (74-106) mg/dL Calcium (8.4-10.2) mg/dL Total Bilirubin (0.2-1.3) mg/dL AST (14-36) U/L ALT (0-35) U/L Alkaline Phosphatase (38-126) U/L Serum Total Protein (6.3-8.2) g/dL Albumin (3.5-5.0) g/dL Serum , Qual (Negative) Urine Color YELLOW (YELLOW) Urine Appearance SLIGHTLY CLOUDY (CLEAR) Urine pH 6.0 (5-6) Ur Specific [place] 1.010 (1.005-1.025) Urine Protein NEGATIVE (Negative) Urine Ketones NEGATIVE (NEGATIVE) Urine Blood LARGE (0-5) Jose Armando/ul Urine Nitrite NEGATIVE (NEGATIVE) Urine Bilirubin NEGATIVE (NEGATIVE) Urine Urobilinogen NEGATIVE (0-1) mg/dL Ur Leukocyte Esterase TRACE (NEGATIVE) Urine WBC (Auto) 3-5 (0-5) /HPF Urine RBC (Auto) 6-10 (0-2) /HPF U Epithel Cells (Auto) RARE (FEW) /HPF Urine Bacteria (Auto) FEW (NEGATIVE) /HPF Urine Mucus (Auto) SLIGHT (NEGATIVE) /HPF Urine Culture Reflexed YES (NO) Urine Glucose NEGATIVE (NEGATIVE) mg/dL - Progress Progress: unchanged Progress Note: 06/30/20 23:12 She has a negative test. I believe she has a irregular cycle and probably starting her menstrual bleeding today. She is counseled and recommended outpatient follow-up with primary care/[facility] if her cycles are irregular. Counseled pt/family regarding: lab results, diagnosis, need for follow-up - Departure Departure Disposition: Home Clinical Impression: Irregular menstruation, unspecified Condition: Stable Critical Care Time: No Referrals: DARLINE CHINO MD [Primary Care Provider] - Follow Up with PCP/3 days Instructions: Absent or Irregular Periods Additional Instructions: Follow-up/ibuprofen as needed for cramping. Follow-up with primary care for ree valuation. Return to ER for any worsening.
[2020-06-30 22:56] LABS: Absolute Neutrophil Ct (ANC) 5.64 (1.4-6.9); BASOPHIL % 0.4 % (0.0-0.4); Basophil (Absolute #) 0.04 (0-0.4); Eosinophil % 3.2 % (0.00-5.0); Hematocrit 36.5 % (35-47); Lymphocyte (Absolute #) 2.71 (1.0-4.6); Lymphocytes % 28.7 % (24.0-44.0); Mean Cell Volume 84.1 fl (78-100); Mean Corpuscular Hemoglobin 25.3 pg (26-32); Mean Corpuscular Hgb Concent. 30.1 g/dl (32-36); Mean Platelet Volume 9.5 fl (7.5-11.0); Monocyte (Absolute #) 0.74 (0.0-1.3); Monocytes % 7.8 % (0.0-12.0); Neutrophil % 59.9 % (36.0-66.0); Platelet Count 370 K/mm3 (150-450); Red Blood Count 4.34 M/mm3 (4.1-5.4); Red Cell Distribution Width 17.1 % (11.5-14.0); White Blood Count 9.4 K/mm3 (4.0-10.5)
[2020-06-30 23:06] LABS: ALKALINE PHOSPHATASE 76 U/L (38-126); ANION GAP 11.8 MEQ/L (5-15); BLOOD UREA NITROGEN 8 mg/dL (7-17); CHLORIDE 107 mmol/L (98-107); Calcium 9.3 mg/dL (8.4-10.2); Carbon Dioxide 23 mmol/L (22-30); Creatinine 1 0.52 mg/dL (0.52-1.04); EST GLOMERULAR FILTRATION RATE > 60.0 ML/MIN; Glucose 107 mg/dL (74-106); SGOT/AST 22 U/L (14-36); SGPT/ALT 19 U/L (0-35); SODIUM 138 mmol/L (137-145); Total Protein 7.5 g/dL (6.3-8.2)
[2020-06-30 23:09] LABS: Appearance SLIGHTLY CLOUDY (CLEAR); Bilirubin NEGATIVE (NEGATIVE); Blood LARGE Ery/ul (0-5); Epithelial Cells RARE /HPF (FEW); Glucose NEGATIVE (NEGATIVE); Ketones NEGATIVE (NEGATIVE); Leukocyte Esterase TRACE (NEGATIVE); Mucus SLIGHT /HPF (NEGATIVE); Nitrite NEGATIVE (NEGATIVE); Protein,Urine Dip NEGATIVE (Negative); Urobilinogen NEGATIVE mg/dL (0-1)
[2020-06-30 23:11] VITALS: BP 138/84; PULSE 98
[2020-06-30 23:12] LABS: Bacteria FEW /HPF (NEGATIVE)
[2020-06-30 23:14] VITALS: O2SAT 99
[2020-07-01 01:27] LABS: ABO TYPING A; Antibody Screen NEGATIVE (NEGATIVE); RH TYPING POSITIVE
== END 2020-06-30 23:19 | disposition home or self-care (01) ==
LOC: ED 21:55
DX: N92.6 Irregular menstruation, unspecified (principal)
CPT/HCPCS: 36415; 80053; 81001; 81025; 85025; 86850; 86900; 86901; 87086; 99283

== ENCOUNTER 2020-08-20 21:58 | Emergency (ER) | payer OTHER ==
[2020-08-20] MEDS ORDERED: Sodium Chloride 0.9% 1000 ML 1,000 ML IV STA (23:00)
--- NOTE | 2020-08-20 23:02 | ERPHSYRPT ---
- History of Present Illness Time Seen by Provider: 08/20/20 22:40 Historian: patient Exam Limitations: no limitations Physician History: Patient is a 20-year-old female presents to our ED with complaints of left upper quadrant flank pain x2 days. Pain described as an ache that is intermittent. Patient states the pain is somewhat worse with movement. No associated nausea vomiting or diaphoresis. No chest pain or shortness of breath. No trauma. Timing/Duration: today Activities at Onset: none Quality: aching Abdominal Pain Onset Location: [facility] Pain Radiation: no radiation Severity of Pain-Max: moderate Severity of Pain-Current: mild Modifying Factors: Improves With: movement Associated Symptoms: No chest pain, No diaphoresis, No diarrhea, No fever/chills, No fatigue, No headache, No heartburn, No loss of appetite, No nausea, No neck pain, No rash, No shortness of breath, No syncope, No vomiting Previous symptoms: no prior history Allergies/Adverse Reactions: codeine Allergy (Severe, Verified 08/20/20 23:34) Difficulty Breathing morphine Allergy (Severe, Verified 08/20/20 23:34) Tightness of Throat Penicillins Allergy (Severe, Verified 08/20/20 23:34) Swelling of Tongue and Lips throat swells shut influenza A (H1N1) virus vaccine m-serge-split 2008 [From influenza A (H1N1)] Allergy (Verified 08/20/20 23:34) Rash lactose Allergy (Verified 08/20/20 23:34) Nausea and Vomiting Home Medications: Norgestrel-Ethinyl Estradiol [Cryselle-28 Tablet] 1 each PO DAILY 03/16/20 [History] Hx Tetanus, Diphtheria Vaccination/Date Given: Yes Hx Influenza Vaccination/Date Given: No Hx Pneumococcal Vaccination/Date Given: No Travel Risk - International Travel Have you traveled outside of the country in past 3 weeks: No - Coronavirus Screening Are you exhibiting any of the following symptoms?: No Close contact with a COVID-19 positive Pt in past 14-21 Days: No - Review of Systems Constitutional: No Symptoms, No Fever, No Chills Eyes: No Symptoms Ears, Nose, & Throat: No Symptoms Respiratory: No Symptoms, No Cough, No Dyspnea Cardiac: No Symptoms, No Chest Pain, No Edema, No Syncope Abdominal/Gastrointestinal: No Symptoms, No Abdominal Pain, No Nausea, No Vomiting, No Diarrhea Genitourinary Symptoms: No Symptoms, No Dysuria Musculoskeletal: No Symptoms, No Back Pain, No Neck Pain Skin: No Symptoms, No Rash Neurological: No Symptoms, No Dizziness, No Focal Weakness, No Sensory Changes Psychological: No Symptoms Endocrine: No Symptoms Hematologic/Lymphatic: No Symptoms Immunological/Allergic: No Symptoms All Other Systems: Reviewed and Negative - Past Medical History Pertinent Past Medical History: Yes Neurological History: No Pertinent History ENT History: No Pertinent History Cardiac History: No Pertinent History Respiratory History: No Pertinent History Endocrine Medical History: No Pertinent History Musculoskeletal History: Fractures GI Medical History: No Pertinent History History: No Pertinent History Psycho-Social History: Anxiety, Depression Female Reproductive Disorders: No Pertinent History Other Medical History: PMHX: FX RIGHT AND LEFT WRIST A CHILD TREATED WITH CASTING. SX HX: T& A, CHOLECYSTECTOMY, AND D&C - Past Surgical History Past Surgical History: Yes Neuro Surgical History: No Pertinent History Cardiac: No Pertinent History Respiratory: No Pertinent History Gastrointestinal: Cholecystectomy Genitourinary: No Pertinent History Musculoskeletal: No Pertinent History Female Surgical History: No Pertinent History Other Surgical History: tubes in ears - Social History Smoking Status: Current every day smoker How long have you smoked: 7 years Exposure to second hand smoke: Yes Drug Use: none Patient Lives Alone: No - Nursing Vital Signs Nursing Vital Signs: Initial Vital Signs Temperature 98.0 F 08/20/20 22:00 Pulse Rate 88 08/20/20 22:00 Respiratory Rate 18 08/20/20 22:00 Blood Pressure 133/96 08/20/20 22:00 O2 Sat by Pulse Oximetry 100 08/20/20 22:00 Pain Scale Pain Intensity 5 - Physical Exam General Appearance: no apparent distress, alert Eye Exam: PERRL/EOMI, eyes nml inspection Ears, Nose, Throat Exam: normal ENT inspection, pharynx normal, moist mucous membranes Neck Exam: normal inspection, non-tender, supple, full range of motion Respiratory Exam: normal breath sounds, lungs clear, No respiratory distress Cardiovascular Exam: regular rate/rhythm, normal heart sounds Gastrointestinal/Abdomen Exam: soft, tenderness, other (Mild tenderness to palpation left upper quadrant. No CVA tenderness. Remainder of abdominal exam is benign. No guarding no rebound no hernia no organomegaly.), No mass Back Exam: normal inspection, normal range of motion, No CVA tenderness, No vertebral tenderness Extremity Exam: normal inspection, normal range of motion, pelvis stable Neurologic Exam: alert, oriented x 3, cooperative, policy services representative II-XII nml as tested, normal mood/affect, sensation nml, No motor deficits Skin Exam: normal color, warm, dry Lymphatic Exam: No adenopathy SpO2 Interpretation: normal SpO2: 100 O2 Delivery: Room Air - Course Nursing assessment & vital signs reviewed: Yes - CT Exams Abdomen/Pelvis CT Interpretation: Tele-radiologist Report (No or ureteral stones, diverticulosis without diverticulitis 3.7 cm right ovarian cyst with additional smaller follicles in the right ovary and small follicles in the left ovary, interval cholecystectomy, shotty mesenteric lymph nodes in the central abdomen and right lower quadrant. Nonspecific may) Ordered Tests: Active Orders 24 hr Category Date Time Status IV Insertion STAT Care 08/20/20 23:00 Active ABDOMEN AND PELVIS W/0 CONTRAS [CT] Stat Exams 08/20/20 23:01 Taken CBC W DIFF Stat Lab 08/20/20 23:00 Ordered CMP Stat Lab 08/20/20 23:00 Ordered HCG,QUALITATIVE URINE Stat Lab 08/20/20 23:18 Completed LIPASE Stat Lab 08/20/20 23:00 Ordered TROPONIN Q3H Lab 08/20/20 23:00 Ordered TROPONIN Q3H Lab 08/21/20 02:00 Ordered TROPONIN Q3H Lab 08/21/20 05:00 Ordered TROPONIN Q3H Lab 08/21/20 08:00 Ordered TROPONIN Q3H Lab 08/21/20 11:00 Ordered UA W/RFX UR CULTURE Stat Lab 08/20/20 23:18 Completed Medication Summary Generic Name Dose Route Start Last Admin Trade Name Haimq PRN Reason Stop Dose Admin Sodium Chloride 1,000 mls @ 999 mls/hr 08/20/20 23:00 08/20/20 23:35 Sodium Chloride 0.9% 1000 Ml IV 08/21/20 00:00 Not Given .Q1H1M STA Lab/Rad Data: Laboratory Results 08/20/20 08/20/20 Range/Units 23:18 23:18 Urine Color YELLOW (YELLOW) Urine Appearance SLIGHTLY CLOUDY (CLEAR) Urine pH 5.0 (5-6) Ur Specific Peerless 1.028 (1.005-1.025) Urine Protein NEGATIVE (Negative) Urine Ketones NEGATIVE (NEGATIVE) Urine Blood NEGATIVE (0-5) Jose Armando/ul Urine Nitrite NEGATIVE (NEGATIVE) Urine Bilirubin NEGATIVE (NEGATIVE) Urine Urobilinogen NEGATIVE (0-1) mg/dL Ur Leukocyte Esterase NEGATIVE (NEGATIVE) Urine WBC (Auto) 0-2 (0-5) /HPF Urine RBC (Auto) 0-2 (0-2) /HPF U Epithel Cells (Auto) RARE (FEW) /HPF Urine Bacteria (Auto) NONE SEEN (NEGATIVE) /HPF Urine Mucus (Auto) SLIGHT (NEGATIVE) /HPF Urine Culture Reflexed NO (NO) Urine Glucose NEGATIVE (NEGATIVE) mg/dL Urine HCG, Qual NEGATIVE (Negative) - Progress Progress: improved Progress Note: 08/20/20 23:56 Patient reassessed. She is currently asymptomatic. No near ureterolithiasis observed on CAT scan. Adenitis observed. Ovarian cysts observed as well. No clear explanation for patient's pain at this time possible adenitis. Patient refused blood draw. Patient states that RN was unable to get it after repeated tries. Patient refused further blood draw. Will discharge patient AGAINST M EDICAL ADVICE due to patient noncompliance and limited work-up. Patient agrees to follow-up with her primary care doctor within 48 hours for reevaluation. Patient understand that leaving AGAINST MEDICAL ADVICE can result to delayed diagnosis, increased risk morbidity, mortality, short long-term disability including . In spite of her risks patient has decided to leave AGAINST MEDICAL ADVICE. Patient is appropriate to make informed independent medical decisions. Patient understand that she may return to our ED at any point if he changes her mind. Patient agrees to follow-up with her primary care doctor within 48 hours for reevaluation. Counseled pt/family regarding: lab results, diagnosis, need for follow-up, rad results - Departure Departure Disposition: AMA Clinical Impression: Diverticulosis, Ovarian cyst, Mesenteric adenitis, Flank pain Condition: Stable Critical Care Time: No Referrals: DARLINE CHINO MD [Primary Care Provider] - Additional Instructions: Discharge/Care Plan JUNITO KAPOOR CATY was seen on 08/20/20 in the Emergency Room. The patient was counseled regarding Diagnosis,Lab results, Imaging studies, need for follow up and when to return to the Emergency Room. Prescriptions given: Discharge Note I have spoken with the patient and/or caregivers. I have explained the patient's condition, diagnosis and treatment plan based on the information available to me at this time. I have answered the patient's and/or caregiver's questions and ad dressed any concerns. The patient and/or caregivers have as good understanding of the patient's diagnosis, condition and treatment plan as can be expected at this point. The vital signs have been stable. The patient's condition is stable and appropriate for discharge from the emergency department. The patient will pursue further outpatient evaluation with the primary care physician or other designated or consulting physician as outlined in the discharge instructions. The patient and/or caregivers are agreeable to this plan of care and follow-up instructions have been explained in detail. The patient and/or caregivers have received these instruction. The patient/and or caregivers are aware that any significant change in condition or worsening of symptoms should prompt an immediate return to this or the closest emergency department or call 911.
[2020-08-20 23:23] VITALS: O2SAT 100
[2020-08-20 23:29] LABS: Appearance SLIGHTLY CLOUDY (CLEAR); Bilirubin NEGATIVE (NEGATIVE); Blood NEGATIVE Ery/ul (0-5); Epithelial Cells RARE /HPF (FEW); Glucose NEGATIVE (NEGATIVE); Ketones NEGATIVE (NEGATIVE); Leukocyte Esterase NEGATIVE (NEGATIVE); Mucus SLIGHT /HPF (NEGATIVE); Nitrite NEGATIVE (NEGATIVE); Protein,Urine Dip NEGATIVE (Negative); RBC 0-2 /HPF (0-2); Specific Gravity 1.028 (1.005-1.025); Urobilinogen NEGATIVE mg/dL (0-1); WBC 0-2 /HPF (0-5)
[2020-08-20 23:37] LABS: Bacteria NONE SEEN /HPF (NEGATIVE)
[2020-08-21 00:37] VITALS: BP 150/81; PULSE 98
--- NOTE | 2020-08-21 09:00 | XRAY ---
Indication: Left flank pain. Multiple contiguous axial images obtained through the abdomen and pelvis without contrast as ordered. Comparison: October 08, 2018. Lung bases are clear. Heart is not enlarged. Stomach is mildly distended with food/fluid. Noncontrasted stomach and bowel loops remain nonobstructed with normal appearing appendix. Again minimal sigmoid diverticulosis. There has been interval cholecystectomy. New 3.7 cm right ovary cyst. No free fluid/air. There are now tiny subcentimeter right lower quadrant mesenteric nodes, possible adenitis. Remaining liver, pancreas, spleen, adrenal glands, kidneys, ureters, bladder, and aorta are unremarkable for noncontrast exam. Osseous structures remain intact. No ventral or inguinal hernias. Impression: 1. New 3.7 cm right ovary cyst better evaluated with ultrasound if clinically warranted. 2. Tiny right lower quadrant mesenteric nodes, possible adenitis. 3. Stable sigmoid diverticulosis. 4. Remaining CT abdomen/pelvis without contrast exam is negative. Comment: Preliminary interpretation was made by [facility]. No critical discrepancy.
== END 2020-08-21 00:25 | disposition home or self-care (01) ==
LOC: ED 21:58
DX: R10.12 Left upper quadrant pain (principal); K57.92 Diverticulitis of intestine, part unspecified, without perforation or abscess without bleeding; N83.202 Unspecified ovarian cyst, left side; N83.201 Unspecified ovarian cyst, right side; I88.0 Nonspecific mesenteric lymphadenitis; F17.200 Nicotine dependence, unspecified, uncomplicated
CPT/HCPCS: 74176; 81001; 84703; 99283

== ENCOUNTER 2021-03-31 22:32 | Emergency (ER) | payer OTHER ==
--- NOTE | 2021-03-31 23:23 | ERPHSYRPT ---
- History of Present Illness Time Seen by Provider: 03/31/21 23:05 Source: patient Exam Limitations: no limitations Physician History: This is a 20-year-old white female who has not had a menstrual period in [address] Gonzalez, her sausage maker, took her off of her control pills. She is sexually active. But she has been using protection. She had not had a period for 42 days since that time where he took her off her oral contraceptive agents. She took a test twice 15 days later and both were positive. From that point forward which was about 25 days ago, she assumed that she was . However, today she had some bilateral flank pain and then has had several episodes of clotted blood vaginally. It has now subsided but not completely. She is still spotting. She currently states she has no abdominal pain or flank pain. She had no nausea vomiting or diarrhea. She has no chest pain or shortness of breath. Patient has an appointment to see her sausage maker on 04/04/2021. Timing/Duration: today Activites at Onset: none Quality: other (No current flank pain or abdominal pain) Onset Location: generalized flank, other (No current flank pain or abdominal pain) Pain Radiation: generalized flank (A few hours ago. That pain has now resolved) Severity of Pain-Max: none Severity of Pain-Current: none Modifying Factors: Improves With: nothing Associated Symptoms: vaginal discharge (Initially passage of clots vaginally. Now she only has mild, intermittent vaginal spotting) Allergies/Adverse Reactions: codeine Allergy (Severe, Verified 03/31/21 22:53) Difficulty Breathing morphine Allergy (Severe, Verified 03/31/21 22:53) Tightness of Throat Penicillins Allergy (Severe, Verified 03/31/21 22:53) Swelling of Tongue and Lips throat swells shut influenza A (H1N1) virus vaccine m-serge-split 2008 [From influenza A (H1N1)] Allergy (Verified 03/31/21 22:53) Rash lactose Allergy (Verified 03/31/21 22:53) Nausea and Vomiting Hx Tetanus, Diphtheria Vaccination/Date Given: Yes Hx Influenza Vaccination/Date Given: No Hx Pneumococcal Vaccination/Date Given: No Travel Risk - International Travel Have you traveled outside of the country in past 3 weeks: No - Coronavirus Screening Are you exhibiting any of the following symptoms?: No Close contact with a COVID-19 positive Pt in past 14-21 Days: No - Review of Systems Constitutional: No Symptoms Eyes: No Symptoms Ears, Nose, & Throat: No Symptoms Respiratory: No Symptoms Cardiac: No Symptoms Abdominal/Gastrointestinal: No Symptoms Genitourinary Symptoms: Vaginal Bleeding Musculoskeletal: No Symptoms Skin: No Symptoms Neurological: No Symptoms Psychological: No Symptoms Endocrine: No Symptoms Hematologic/Lymphatic: No Symptoms Immunological/Allergic: No Symptoms All Other Systems: Reviewed and Negative - Past Medical History Pertinent Past Medical History: Yes Neurological History: No Pertinent History ENT History: No Pertinent History Cardiac History: No Pertinent History Respiratory History: No Pertinent History Endocrine Medical History: No Pertinent History Musculoskeletal History: Fractures GI Medical History: No Pertinent History History: No Pertinent History Psycho-Social History: Anxiety, Depression Female Reproductive Disorders: No Pertinent History Other Medical History: PMHX: FX RIGHT AND LEFT WRIST A CHILD TREATED WITH CASTING. SX HX: T& A, CHOLECYSTECTOMY, AND D&C - Past Surgical History Past Surgical History: Yes Neuro Surgical History: No Pertinent History Cardiac: No Pertinent History Respiratory: No Pertinent History Gastrointestinal: Cholecystectomy Genitourinary: No Pertinent History Musculoskeletal: No Pertinent History Female Surgical History: No Pertinent History Other Surgical History: tubes in ears - Social History Smoking Status: Current every day smoker How long have you smoked: 7 years Exposure to second hand smoke: Yes Drug Use: none Patient Lives Alone: No - Nursing Vital Signs Nursing Vital Signs: Initial Vital Signs Temperature 98.2 F 03/31/21 22:55 Pulse Rate 96 H 03/31/21 22:55 Respiratory Rate 18 03/31/21 22:55 Blood Pressure 161/102 03/31/21 22:55 O2 Sat by Pulse Oximetry 98 03/31/21 22:55 Pain Scale Pain Intensity 0 - Physical Exam General Appearance: no apparent distress, alert, anxiety Eye Exam: PERRL/EOMI, eyes nml inspection Ears, Nose, Throat Exam: normal ENT inspection, moist mucous membranes Neck Exam: normal inspection, non-tender, supple, full range of motion Respiratory Exam: normal breath sounds, lungs clear, airway intact, No chest tenderness, No respiratory distress Cardiovascular Exam: regular rate/rhythm, normal heart sounds, normal peripheral pulses Gastrointestinal/Abdomen Exam: soft, normal bowel sounds, No tenderness Pelvic Exam: not done Rectal Exam: not done Back Exam: normal inspection, normal range of motion, No CVA tenderness, No vertebral tenderness Extremity Exam: normal inspection, normal range of motion, pelvis stable Neurologic Exam: alert, oriented x 3, cooperative, editorial manager II-XII nml as tested, normal mood/affect, nml cerebellar function, nml station & gait, sensation nml Skin Exam: normal color, warm, dry Lymphatic Exam: No adenopathy SpO2 Interpretation: normal SpO2: 98 O2 Delivery: Room Air - Course Nursing assessment & vital signs reviewed: Yes Ordered Tests: Active Orders 24 hr Category Date Time Status CBC W DIFF Stat Lab 03/31/21 23:15 Ordered CMP Stat Lab 03/31/21 23:15 Ordered CULTURE,URINE Stat Lab 03/31/21 23:20 Received HCG, Quantitative (Inhouse) Stat Lab 03/31/21 23:15 Ordered HCG,QUALITATIVE URINE Stat Lab 04/01/21 00:00 Completed UA W/RFX UR CULTURE Stat Lab 03/31/21 23:20 Completed Medication Summary Discontinued Medications Generic Name Dose Route Start Last Admin Trade Name Freq PRN Reason Stop Dose Admin Cephalexin HCl Confirm 04/01/21 00:22 Keflex 500 Mg Administered 04/01/21 00:23 Dose 500 mg .ROUTE .[facility] Lab/Rad Data: Laboratory Results 04/01/21 03/31/21 Range/Units 00:00 23:20 Urine Color YELLOW (YELLOW) Urine Appearance SLIGHTLY CLOUDY (CLEAR) Urine pH 5.0 (5-6) Ur Specific Whitney 1.027 (1.005-1.025) Urine Protein NEGATIVE (Negative) Urine Ketones NEGATIVE (NEGATIVE) Urine Blood LARGE (0-5) Jose Armando/ul Urine Nitrite NEGATIVE (NEGATIVE) Urine Bilirubin NEGATIVE (NEGATIVE) Urine Urobilinogen 2 (0-1) mg/dL Ur Leukocyte Esterase TRACE (NEGATIVE) Urine WBC (Auto) 3-5 (0-5) /HPF Urine RBC (Auto) 0-2 (0-2) /HPF U Epithel Cells (Auto) RARE (FEW) /HPF Urine Bacteria (Auto) RARE (NEGATIVE) /HPF Urine Mucus (Auto) SLIGHT (NEGATIVE) /HPF Urine Culture Reflexed YES (NO) Urine Glucose NEGATIVE (NEGATIVE) mg/dL Urine HCG, Qual NEGATIVE (Negative) - Progress Progress: unchanged Air Movement: good Progress Note: 04/01/21 00:00 This patient has been stuck several times by several different people in order to obtain laboratory data from her blood draw. However, everyone has been unsuccessful. Patient does not want any more attempts performed. We will await her urinalysis. If she has a urinary tract infection we will treat that. I will also order an obstetric ultrasound less than 14-week gestation for further evaluation if urine test is positive 04/01/21 00:28 Patient has a urine test that is negative. She does have a urinary tract infection. Patient has taken Keflex in the past without any problems. Blood Culture(s) Obtained: No Antibiotics given: No Counseled pt/family regarding: lab results, need for follow-up - Departure Departure Disposition: Home Clinical Impression: Vaginal bleeding, UTI (urinary tract infection) Condition: Stable Critical Care Time: No Referrals: DARLINE CHINO MD [Primary Care Provider] - Additional Instructions: Drink plenty of fluids. Follow-up with your evaluation engineer and primary care physician tomorrow by phone for further management. Take the antibiotics as prescribed. Prescriptions: Cephalexin Mh 500 mg [Keflex 500 mg] 500 mg PO TID #21 cap
[2021-04-01 00:11] LABS: Appearance SLIGHTLY CLOUDY (CLEAR); Bacteria RARE /HPF (NEGATIVE); Bilirubin NEGATIVE (NEGATIVE); Blood LARGE Ery/ul (0-5); Epithelial Cells RARE /HPF (FEW); Glucose NEGATIVE (NEGATIVE); Ketones NEGATIVE (NEGATIVE); Leukocyte Esterase TRACE (NEGATIVE); Mucus SLIGHT /HPF (NEGATIVE); Nitrite NEGATIVE (NEGATIVE); Protein,Urine Dip NEGATIVE (Negative); RBC 0-2 /HPF (0-2); Specific Gravity 1.027 (1.005-1.025); Urobilinogen 2 mg/dL (0-1)
[2021-04-01] MEDS ORDERED: KEFLEX 500 MG ONE (00:22)
[2021-04-01] MEDS ORDERED: KEFLEX 500 MG PO ONE (00:27)
[2021-04-01 00:37] VITALS: BP 130/88; PULSE 92; O2SAT 99
== END 2021-04-01 00:40 | disposition home or self-care (01) ==
LOC: ED 22:32
DX: N39.0 Urinary tract infection, site not specified (principal)
CPT/HCPCS: 81001; 84703; 87086; 99284; A9270-GY

== ENCOUNTER 2021-05-06 16:59 | Emergency (ER) | payer OTHER ==
[2021-05-06 17:13] VITALS: BP 151/91; PULSE 94; O2SAT 98
[2021-05-06] MEDS ORDERED: Cleocin Phosphate IV 600 MG/4 ML ONE (17:19)
--- NOTE | 2021-05-06 17:29 | ERPHSYRPT ---
- History of Present Illness Time Seen by Provider: 05/06/21 17:16 Source: patient Exam Limitations: no limitations Patient Subjective Stated Complaint: Mouth pain Triage Nursing Assessment: Patient ambulated back to ED and transferred self to bed. Patient A+O X3. Patient's skin pink, warm and dry. Patient complains of an open area to left side of inner cheek and left side of tongue. Patient complains of pain 7/10. Ulcer noted to left side of cheek and tongue. Physician History: Patient is a 20-year-old female who presents with a complaint of ulcers in her mouth for 2 weeks. She says she has seen her dentist who said if it got worse to come to the ER. She complains of pain and swelling. Timing/Duration: gradual onset Severity: severe ENT Location: mouth Prearrival Treatment: no prearrival treatment Associated Symptoms: jaw pain, tooth pain Allergies/Adverse Reactions: codeine Allergy (Severe, Verified 05/06/21 17:08) Difficulty Breathing morphine Allergy (Severe, Verified 05/06/21 17:08) Tightness of Throat Penicillins Allergy (Severe, Verified 05/06/21 17:08) Swelling of Tongue and Lips throat swells shut influenza A (H1N1) virus vaccine m-serge-split 2008 [From influenza A (H1N1)] Allergy (Verified 05/06/21 17:08) Rash lactose Allergy (Verified 05/06/21 17:08) Nausea and Vomiting Hx Tetanus, Diphtheria Vaccination/Date Given: Yes Hx Influenza Vaccination/Date Given: No Hx Pneumococcal Vaccination/Date Given: No Immunizations Up to Date: Yes Travel Risk - International Travel Have you traveled outside of the country in past 3 weeks: No - Coronavirus Screening Are you exhibiting any of the following symptoms?: No Close contact with a COVID-19 positive Pt in past 14-21 Days: No - Vaccine Status Have you recieved a Covid-19 vaccination: No - Review of Systems Constitutional: No Fever, No Chills Eyes: No Symptoms Ears, Nose, & Throat: Mouth Pain, Loose Teeth Respiratory: No Cough, No Dyspnea Cardiac: No Chest Pain, No Edema, No Syncope Abdominal/Gastrointestinal: No Abdominal Pain, No Nausea, No Vomiting, No Diarrhea Genitourinary Symptoms: No Dysuria Musculoskeletal: No Back Pain, No Neck Pain Skin: No Rash Neurological: No Dizziness, No Focal Weakness, No Sensory Changes Psychological: No Symptoms Endocrine: No Symptoms All Other Systems: Reviewed and Negative - Past Medical History Pertinent Past Medical History: Yes Neurological History: No Pertinent History ENT History: No Pertinent History Cardiac History: No Pertinent History Respiratory History: No Pertinent History Endocrine Medical History: No Pertinent History Musculoskeletal History: Fractures GI Medical History: No Pertinent History History: No Pertinent History Psycho-Social History: Anxiety, Depression Female Reproductive Disorders: No Pertinent History Other Medical History: PMHX: FX RIGHT AND LEFT WRIST A CHILD TREATED WITH CASTING. SX HX: T& A, CHOLECYSTECTOMY, AND D&C - Past Surgical History Past Surgical History: Yes Neuro Surgical History: No Pertinent History Cardiac: No Pertinent History Respiratory: No Pertinent History Gastrointestinal: Cholecystectomy Genitourinary: No Pertinent History Musculoskeletal: No Pertinent History Female Surgical History: No Pertinent History Other Surgical History: tubes in ears - Social History Smoking Status: Current every day smoker How long have you smoked: 7 years Exposure to second hand smoke: Yes Drug Use: none Patient Lives Alone: No - Female History Hx Last Menstrual Period: currently Hx Now: No - Nursing Vital Signs Nursing Vital Signs: Initial Vital Signs Temperature 97.1 F 05/06/21 17:08 Pulse Rate 94 H 05/06/21 17:08 Respiratory Rate 18 05/06/21 17:08 Blood Pressure 151/91 05/06/21 17:08 O2 Sat by Pulse Oximetry 98 05/06/21 17:08 Pain Scale Pain Intensity 7 - Physical Exam General Appearance: mild distress, alert Eye Exam: bilateral eye: PERRL, EOMI Nasal Exam: normal inspection Throat Exam: pharynx normal, dental tenderness (Examination of the oral cavity shows a rather large almost dime size ulcer on the buccal mucosa next to the left mandibular molar there is also an ulcer on the left side of the tongue near the same area. There is material over all the teeth they do not appear to have been brushed in a sizable perio), moist mucus membranes, No tonsillar exudate Neck Exam: supple Cardiovascular/Respiratory Exam: normal breath sounds, regular rate/rhythm Abdominal Exam: non-tender, soft Neurologic Exam: alert, oriented x 3, sensation nml, No motor deficits Skin Exam: normal color, warm, dry SpO2: 98 - Course Nursing assessment & vital signs reviewed: Yes - Progress Progress: unchanged - Departure Departure Disposition: Home Clinical Impression: Oral ulcer Condition: Stable Critical Care Time: No Referrals: DARLINE CHINO MD [Primary Care Provider] - Instructions: Mouth Sores (DC) Prescriptions: clindamycin HCL [Cleocin HCl] 300 mg PO TID #21
[2021-05-06] MEDS ORDERED: Cleocin Phosphate IV 600 MG/4 ML IM SCH (17:30)
== END 2021-05-06 17:30 | disposition home or self-care (01) ==
LOC: ED 16:59
DX: K12.1 Other forms of stomatitis (principal)
CPT/HCPCS: 96372; 99283

== ENCOUNTER 2021-08-10 04:28 | Emergency (ER) | payer OTHER ==
[2021-08-10 04:47] VITALS: BP 151/90; PULSE 87; O2SAT 100
[2021-08-10 04:52] LABS: Appearance CLOUDY (CLEAR); Bacteria FEW /HPF (NEGATIVE); Bilirubin SMALL (NEGATIVE); Blood NEGATIVE Ery/ul (0-5); Epithelial Cells FEW /HPF (FEW); Glucose NEGATIVE (NEGATIVE); Ketones TRACE (NEGATIVE); Leukocyte Esterase MODERATE (NEGATIVE); Mucus MANY /HPF (NEGATIVE); Nitrite NEGATIVE (NEGATIVE); Non-Squamous Epithelial Cells RARE /HPF (FEW); Protein,Urine Dip 100 (Negative); Specific Gravity 1.028 (1.005-1.025); Urobilinogen 4 mg/dL (0-1); WBC >100 /HPF (0-5)
[2021-08-10] MEDS ORDERED: BACTRIM DS TABLET PO STA (05:02)
--- NOTE | 2021-08-10 05:03 | ERPHSYRPT ---
- History of Present Illness Time Seen by Provider: 08/10/21 05:00 Source: patient Exam Limitations: no limitations Patient Subjective Stated Complaint: "I think I have a UTI." Triage Nursing Assessment: reported a two day onset of urgency and frequency. Denied any pain, dysuria, discharge, nausea, vomiting, or diarrhea. Reported past UTIs with similar presentations. She attempted to get in to see her PCP but couldn't get into the office until the end of the week. Abdomen without tenderness, rebound, palpable masses, or guarding. Bowel sounds present in all quadrants. No CVA tenderness. Physician History: 21 years old presented in the ER with chief complaint of cleaning dysuria and urgency for the last 2 days without hematuria suprapubic pain or flank pain. Denies any fever or chills. Does have history of UTIs with similar symptoms in the past. Denies any nausea vomiting or abdominal pain. Timing/Duration: day(s) (2), gradual onset, worse Activites at Onset: other Pain Radiation: urethral Sexual intercourse history: non-contributory Associated Symptoms: dysuria Allergies/Adverse Reactions: codeine Allergy (Severe, Verified 08/10/21 04:39) Difficulty Breathing morphine Allergy (Severe, Verified 08/10/21 04:39) Tightness of Throat Penicillins Allergy (Severe, Verified 08/10/21 04:39) Swelling of Tongue and Lips throat swells shut influenza A (H1N1) virus vaccine m-serge-split 2008 [From influenza A (H1N1)] Allergy (Verified 08/10/21 04:39) Rash lactose Allergy (Verified 08/10/21 04:39) Nausea and Vomiting Hx Tetanus, Diphtheria Vaccination/Date Given: No Hx Influenza Vaccination/Date Given: No Hx Pneumococcal Vaccination/Date Given: No Travel Risk - International Travel Have you traveled outside of the country in past 3 weeks: No - Coronavirus Screening Are you exhibiting any of the following symptoms?: No Close contact with a COVID-19 positive Pt in past 14-21 Days: No - Vaccine Status Have you recieved a Covid-19 vaccination: No - Review of Systems Constitutional: No Symptoms Eyes: No Symptoms Respiratory: No Symptoms Cardiac: No Symptoms Abdominal/Gastrointestinal: No Symptoms Genitourinary Symptoms: Dysuria, Urgency Musculoskeletal: No Symptoms Skin: No Symptoms Neurological: No Symptoms Psychological: No Symptoms Endocrine: No Symptoms Immunological/Allergic: No Symptoms - Past Medical History Pertinent Past Medical History: Yes Neurological History: No Pertinent History ENT History: No Pertinent History Cardiac History: No Pertinent History Respiratory History: No Pertinent History Endocrine Medical History: No Pertinent History Musculoskeletal History: Fractures GI Medical History: No Pertinent History History: No Pertinent History Psycho-Social History: Anxiety, Depression Female Reproductive Disorders: No Pertinent History Other Medical History: PMHX: FX RIGHT AND LEFT WRIST A CHILD TREATED WITH CASTING. SX HX: T& A, CHOLECYSTECTOMY, AND D&C - Past Surgical History Past Surgical History: Yes Neuro Surgical History: No Pertinent History Cardiac: No Pertinent History Respiratory: No Pertinent History Gastrointestinal: Cholecystectomy Genitourinary: No Pertinent History Musculoskeletal: No Pertinent History Female Surgical History: No Pertinent History Other Surgical History: tubes in ears - Social History Smoking Status: Current every day smoker How long have you smoked: 7 years Exposure to second hand smoke: Yes Drug Use: none Patient Lives Alone: No - Female History Hx Last Menstrual Period: 07/28/21 Hx Now: No - Nursing Vital Signs Nursing Vital Signs: Initial Vital Signs Temperature 97.8 F 08/10/21 04:29 Pulse Rate 87 08/10/21 04:29 Respiratory Rate 16 08/10/21 04:29 Blood Pressure 151/90 08/10/21 04:29 O2 Sat by Pulse Oximetry 100 08/10/21 04:29 Pain Scale Pain Intensity 0 - Physical Exam General Appearance: no apparent distress Eye Exam: PERRL/EOMI Neck Exam: normal inspection, full range of motion Respiratory Exam: normal breath sounds, lungs clear Cardiovascular Exam: regular rate/rhythm, normal heart sounds Gastrointestinal/Abdomen Exam: soft, normal bowel sounds, No tenderness Back Exam: No CVA tenderness Extremity Exam: normal inspection Neurologic Exam: alert, oriented x 3, cooperative Skin Exam: normal color SpO2 Interpretation: normal SpO2: 100 O2 Delivery: Room Air Ordered Tests: Medication Summary Discontinued Medications Generic Name Dose Route Start Last Admin Trade Name Haimq PRN Reason Stop Dose Admin Trimethoprim/Sulfamethoxazole 1 tab 08/10/21 05:02 08/10/21 05:10 Smz/Tmp Ds Tablet 1 Tablet PO 08/10/21 05:03 1 tab STAT STA Administration Trimethoprim/Sulfamethoxazole Confirm 08/10/21 05:08 Smz/Tmp Ds Tablet 1 Tablet Administered 08/10/21 05:09 Dose 1 tab PO .STK-MED ONE Lab/Rad Data: Laboratory Results 08/10/21 08/10/21 Range/Units 04:49 04:43 Urine Color DARK YELLOW (YELLOW) Urine Appearance CLOUDY (CLEAR) Urine pH 5.0 (5-6) Ur Specific [place] 1.028 (1.005-1.025) Urine Protein 100 (Negative) Urine Ketones TRACE (NEGATIVE) Urine Blood NEGATIVE (0-5) Jose Armando/ul Urine Nitrite NEGATIVE (NEGATIVE) Urine Bilirubin SMALL (NEGATIVE) Urine Urobilinogen 4 (0-1) mg/dL Ur Leukocyte Esterase MODERATE (NEGATIVE) Urine WBC (Auto) >100 (0-5) /HPF Urine RBC (Auto) 16-25 (0-2) /HPF U Epithel Cells (Auto) FEW (FEW) /HPF Urine Bacteria (Auto) FEW (NEGATIVE) /HPF U Non-Squamous Epi Cells RARE (FEW) /HPF Urine Mucus (Auto) MANY (NEGATIVE) /HPF Urine Culture Reflexed YES (NO) Urine Glucose NEGATIVE (NEGATIVE) mg/dL Urine HCG, Qual NEGATIVE (Negative) - Progress Progress: unchanged Air Movement: good Progress Note: Has UTI, started on antibiotics recommended. Do not think needs imaging. Discussed signs symptoms of worsening needing return to ER which he seems understanding Blood Culture(s) Obtained: No Antibiotics given: No Counseled pt/family regarding: lab results, diagnosis, need for follow-up - Departure Departure Disposition: Home Clinical Impression: UTI (urinary tract infection) Qualifiers: Urinary tract infection type: acute cystitis Hematuria presence: with hematuria Qualified Code(s): N30.01 - Acute cystitis with hematuria Condition: Stable Critical Care Time: No Referrals: DARLINE CHINO MD [Primary Care Provider] - Follow Up with PCP/3 days Instructions: Urinary Tract Infection, Adult (DC) Prescriptions: Smz/Tmp Ds Tablet [Bactrim Ds Tablet] 1 udtab PO BID #14 tablet
[2021-08-10] MEDS ORDERED: BACTRIM DS TABLET PO ONE (05:08)
== END 2021-08-10 05:14 | disposition home or self-care (01) ==
LOC: ED 04:28
DX: N30.01 Acute cystitis with hematuria (principal); R35.0 Frequency of micturition; Z72.0 Tobacco use
CPT/HCPCS: 81001; 84703; 87086; 99283; A9270-GY

== ENCOUNTER 2021-10-26 21:34 | Emergency (ER) | payer OTHER ==
--- NOTE | 2021-10-26 21:37 | ERPHSYRPT ---
- History of Present Illness Time Seen by Provider: 10/26/21 21:37 Source: patient Exam Limitations: no limitations Physician History: This is a 21-year-old white female who states that 3 days ago she began having right sided earache. It is persisted and worsened today. It is not responding to Tylenol and ibuprofen. She has had ear infections on both sides in the past. Patient has used Keflex in the past which has cleared up her earaches. Patient has not had fevers. She has had no nausea vomiting or diarrhea. She denies shortness of breath. She denies chest pain. Timing/Duration: days (3) Severity: mild ENT Location: ear (R) (To moderate) Prearrival Treatment: over the counter meds Modifying Factors: Improves With: nothing Associated Symptoms: ear pain (R), No ear drainage, No hearing loss Allergies/Adverse Reactions: codeine Allergy (Severe, Verified 10/26/21 21:43) Difficulty Breathing morphine Allergy (Severe, Verified 10/26/21 21:43) Tightness of Throat Penicillins Allergy (Severe, Verified 10/26/21 21:43) Swelling of Tongue and Lips throat swells shut influenza A (H1N1) virus vaccine m-serge-split 2009 [From influenza A (H1N1)] Allergy (Verified 10/26/21 21:43) Rash lactose Allergy (Verified 10/26/21 21:43) Nausea and Vomiting Home Medications: Medroxyprogesterone Acetate 1 ml IM CLARIFY 10/26/21 [History] Hx Tetanus, Diphtheria Vaccination/Date Given: No Hx Influenza Vaccination/Date Given: No Hx Pneumococcal Vaccination/Date Given: No Travel Risk - International Travel Have you traveled outside of the country in past 3 weeks: No - Coronavirus Screening Are you exhibiting any of the following symptoms?: No Close contact with a COVID-19 positive Pt in past 14-21 Days: No - Vaccine Status Have you recieved a Covid-19 vaccination: No - Review of Systems Constitutional: No Symptoms Eyes: No Symptoms Ears, Nose, & Throat: Ear Pain, No Ear Discharge, No Hearing Changes Respiratory: No Symptoms Cardiac: No Symptoms Abdominal/Gastrointestinal: No Symptoms Genitourinary Symptoms: No Symptoms Musculoskeletal: No Symptoms Skin: No Symptoms Neurological: No Symptoms Psychological: No Symptoms Endocrine: No Symptoms Hematologic/Lymphatic: No Symptoms Immunological/Allergic: No Symptoms All Other Systems: Reviewed and Negative - Past Medical History Pertinent Past Medical History: Yes Neurological History: No Pertinent History ENT History: No Pertinent History Cardiac History: No Pertinent History Respiratory History: No Pertinent History Endocrine Medical History: No Pertinent History Musculoskeletal History: Fractures GI Medical History: No Pertinent History History: No Pertinent History Psycho-Social History: Anxiety, Depression Female Reproductive Disorders: No Pertinent History Other Medical History: PMHX: FX RIGHT AND LEFT WRIST A CHILD TREATED WITH CASTING. SX HX: T& A, CHOLECYSTECTOMY, AND D&C - Past Surgical History Past Surgical History: Yes Neuro Surgical History: No Pertinent History Cardiac: No Pertinent History Respiratory: No Pertinent History Gastrointestinal: Cholecystectomy Genitourinary: No Pertinent History Musculoskeletal: No Pertinent History Female Surgical History: No Pertinent History Other Surgical History: tubes in ears - Social History Smoking Status: Current every day smoker How long have you smoked: 7 years Exposure to second hand smoke: Yes Drug Use: none Patient Lives Alone: No - Nursing Vital Signs Nursing Vital Signs: Initial Vital Signs Temperature 97.5 F 10/26/21 21:44 Pulse Rate 86 10/26/21 21:44 Respiratory Rate 18 10/26/21 21:44 Blood Pressure 173/102 10/26/21 21:44 O2 Sat by Pulse Oximetry 96 10/26/21 21:44 Pain Scale Pain Intensity 8 - Physical Exam General Appearance: no apparent distress, alert, anxiety Eye Exam: bilateral eye: normal inspection, PERRL, EOMI Ear Exam: right ear: erythema (Mild right ear canal), tenderness (Mild right ear canal ), TM red (Mild), left ear: canal normal, TM normal, bilateral ear: auricle normal Nasal Exam: normal inspection Throat Exam: normal Neck Exam: normal inspection, non-tender, supple, trachea midline Cardiovascular/Respiratory Exam: chest non-tender, no respiratory distress Abdominal Exam: non-tender Neurologic Exam: alert, oriented x 3, cooperative, yacht rigger II-XII nml as tested, normal mood/affect, nml cerebellar function, nml station & gait, sensation nml Skin Exam: normal color, warm, dry SpO2 Interpretation: normal O2 Delivery: Room Air - Course Nursing assessment & vital signs reviewed: Yes Ordered Tests: Medication Summary Generic Name Dose Route Start Last Admin Trade Name Freq PRN Reason Stop Dose Admin Cephalexin HCl 500 mg 03/20/22 22:04 Cephalexin Mh 250 Mg/5 Ml Bottle PO 10/26/21 22:05 STAT ONE - Progress Progress: unchanged Counseled pt/family regarding: diagnosis, need for follow-up - Departure Departure Disposition: Home Clinical Impression: Right otitis media Condition: Stable Critical Care Time: No Referrals: DARLINE CHINO MD [Primary Care Provider] - Follow up/PCP as directed Additional Instructions: Use Tylenol for pain control. Take medications as prescribed. Follow-up with primary care physician for persistent symptoms. Prescriptions: Prednisone 10 mg [Deltasone 10 mg] 10 mg PO TID #12 tablet Cephalexin Mh 500 mg [Keflex 500 mg] 500 mg PO TID #21 cap
[2021-10-26 21:55] VITALS: BP 173/102; PULSE 86; O2SAT 96
[2021-10-26] MEDS ORDERED: KEFLEX 250 MG/5 ML SUSP PO ONE (22:04)
[2021-10-26] MEDS ORDERED: KEFLEX 500 MG PO ONE (22:18)
[2021-10-26] MEDS ORDERED: KEFLEX 500 MG ONE (22:19)
== END 2021-10-26 22:29 | disposition home or self-care (01) ==
LOC: ED 21:34
DX: H66.91 Otitis media, unspecified, right ear (principal); Z72.0 Tobacco use; H92.01 Otalgia, right ear; Z79.52 Long term (current) use of systemic steroids
CPT/HCPCS: 99283; A9270-GY

== ENCOUNTER 2022-08-31 18:26 | Emergency (ER) | payer OTHER ==
--- NOTE | 2022-08-31 18:41 | ERPHSYRPT ---
- History of Present Illness Time Seen by Provider: 08/31/22 18:40 Source: patient Exam Limitations: no limitations Patient Subjective Stated Complaint: pt states "I think I have an ear infection in my left ear." Triage Nursing Assessment: Pt presented alert and oriented X 3, skin wpd. Pt ambulates with an upright steady gait, able to speak in clear full sentences. Physician History: This is an obese 22-year-old white female patient of Dr. Chino who also has a family history of hypertension and presents with left earache. Patient does get recurrent ear infections often. She also noticed, in the emergency room that her blood pressure was elevated. She has no visual changes. She denies headache. She has not had any fevers or cough. She denies chest pain. She denies shortness of breath. Patient states that when she gets earaches Keflex works well for her. Patient has had Keflex several times without any issues. Timing/Duration: day(s) (2) Severity: mild Associated Symptoms: No shortness of breath, No chest pain, No fever Allergies/Adverse Reactions: codeine Allergy (Severe, Verified 10/26/21 21:43) Difficulty Breathing morphine Allergy (Severe, Verified 10/26/21 21:43) Tightness of Throat Penicillins Allergy (Severe, Verified 10/26/21 21:43) Swelling of Tongue and Lips throat swells shut influenza A (H1N1) virus vaccine m-serge-split 2008 [From influenza A (H1N1)] Allergy (Verified 10/26/21 21:43) Rash lactose Allergy (Verified 10/26/21 21:43) Nausea and Vomiting Home Medications: No Reportable Medications [No Reported Medications] 08/31/22 [History] Hx Tetanus, Diphtheria Vaccination/Date Given: No Hx Influenza Vaccination/Date Given: No Hx Pneumococcal Vaccination/Date Given: No Immunizations Up to Date: Yes Travel Risk - International Travel Have you traveled outside of the country in past 3 weeks: No - Coronavirus Screening Are you exhibiting any of the following symptoms?: No Close contact with a COVID-19 positive Pt in past 14-21 Days: No - Vaccine Status Have you recieved a Covid-19 vaccination: No - Review of Systems Constitutional: No Symptoms Eyes: No Symptoms Ears, Nose, & Throat: Ear Pain Respiratory: No Symptoms Cardiac: No Symptoms Abdominal/Gastrointestinal: No Symptoms Genitourinary Symptoms: No Symptoms Musculoskeletal: No Symptoms Skin: No Symptoms Neurological: No Symptoms Psychological: No Symptoms Endocrine: No Symptoms Hematologic/Lymphatic: No Symptoms Immunological/Allergic: No Symptoms All Other Systems: Reviewed and Negative - Past Medical History Pertinent Past Medical History: Yes Neurological History: No Pertinent History ENT History: No Pertinent History Cardiac History: No Pertinent History Respiratory History: No Pertinent History Endocrine Medical History: No Pertinent History Musculoskeletal History: Fractures GI Medical History: No Pertinent History History: No Pertinent History Psycho-Social History: Anxiety, Depression Female Reproductive Disorders: No Pertinent History Other Medical History: PMHX: FX RIGHT AND LEFT WRIST A CHILD TREATED WITH CASTING. SX HX: T& A, CHOLECYSTECTOMY, AND D&C - Past Surgical History Past Surgical History: Yes Neuro Surgical History: No Pertinent History Cardiac: No Pertinent History Respiratory: No Pertinent History Gastrointestinal: Cholecystectomy Genitourinary: No Pertinent History Musculoskeletal: No Pertinent History Female Surgical History: No Pertinent History Other Surgical History: tubes in ears - Social History Smoking Status: Current every day smoker How long have you smoked: 7 years Exposure to second hand smoke: Yes Drug Use: none Patient Lives Alone: No - Female History Hx Last Menstrual Period: 01/2022 ammenorrhea Hx Now: No - Nursing Vital Signs Nursing Vital Signs: Initial Vital Signs Temperature 98.6 F 08/31/22 18:34 Pulse Rate 92 H 08/31/22 18:34 Respiratory Rate 20 08/31/22 18:34 Blood Pressure 159/98 08/31/22 18:34 O2 Sat by Pulse Oximetry 98 08/31/22 18:34 Pain Scale Pain Intensity 6 - Physical Exam General Appearance: no apparent distress, alert, anxiety, obese Eye Exam: PERRL/EOMI, post op pupil defect (L) Ears, Nose, Throat Exam: moist mucous membranes, TM abnormal (L) (Mild redness) Neck Exam: normal inspection, non-tender, supple, full range of motion Respiratory Exam: normal breath sounds, lungs clear, airway intact, No chest tenderness, No respiratory distress Cardiovascular Exam: regular rate/rhythm, normal heart sounds, normal peripheral pulses Gastrointestinal/Abdomen Exam: soft, normal bowel sounds, No tenderness Pelvic Exam: not done Rectal Exam: not done Back Exam: normal inspection, normal range of motion, No CVA tenderness, No vertebral tenderness Extremity Exam: normal inspection, normal range of motion, pelvis stable Neurologic Exam: alert, oriented x 3, cooperative, cement finisher II-XII nml as tested, normal mood/affect, nml cerebellar function, nml station & gait, sensation nml Skin Exam: normal color, warm, dry Lymphatic Exam: No adenopathy SpO2 Interpretation: normal SpO2: 98 O2 Delivery: Room Air - Course Nursing assessment & vital signs reviewed: Yes - Progress Progress: improved Counseled pt/family regarding: diagnosis, need for follow-up - Departure Departure Disposition: Home Clinical Impression: Left otitis media, Hypertension Condition: Stable Critical Care Time: No Referrals: DARLINE CHINO MD [Primary Care Provider] - Follow up/PCP as directed Additional Instructions: Keep a morning noon and night daily log of your blood pressure. Call your primary care doctor tomorrow, 09/01/2022 to make arrangements for an appointment to discuss evaluation and management of high blood pressure. Take your antibiotics as prescribed.
[2022-08-31 19:21] VITALS: BP 161/101; PULSE 97
[2022-08-31 19:22] VITALS: O2SAT 98
[2022-08-31] MEDS ORDERED: KEFLEX 500 MG PO ONE (19:24)
[2022-08-31] MEDS ORDERED: KEFLEX 500 MG ONE (19:58)
== END 2022-08-31 20:03 | disposition home or self-care (01) ==
LOC: ED 18:26
DX: H66.92 Otitis media, unspecified, left ear (principal); I10 Essential (primary) hypertension; Z28.310 Unvaccinated for COVID-19; Z72.0 Tobacco use
CPT/HCPCS: 99281; A9270-GY

== ENCOUNTER 2022-12-17 16:15 | Emergency (ER) | payer OTHER ==
--- NOTE | 2022-12-17 17:16 | XRAY ---
Indication: Pain and swelling following twisting injury. Comparison: June 26, 2020 3 view left ankle again demonstrates normal bones, articulation, and soft tissues.
--- NOTE | 2022-12-17 17:56 | ERPHSYRPT ---
- History of Present Illness Time Seen by Provider: 12/17/22 16:52 Source: patient Exam Limitations: no limitations Patient Subjective Stated Complaint: C/O left ankle injury. States she was helping mow the lawn, stepping a hole, heard her ankle pop and then felt pain. Triage Nursing Assessment: Patient ambulated back to ER. She is alert and oriented. No SOB. Mild swelling noted to left inner ankle. Skin tone normal; no bruising or skin alterations. Pedal pulse present. Physician History: 22 years old female presented in the ER with chief complaint of left ankle pain after she accidentally stepped in a hole in the grass and twisted it. Complaining of moderate intensity sharp pain on the medial aspect of left ankle, more with ambulation and better with resting. No injury anywhere else. Method of Injury: twisted Allergies/Adverse Reactions: codeine Allergy (Severe, Verified 12/17/22 16:46) Difficulty Breathing morphine Allergy (Severe, Verified 12/17/22 16:46) Tightness of Throat Penicillins Allergy (Severe, Verified 12/17/22 16:46) Swelling of Tongue and Lips throat swells shut influenza A (H1N1) virus vaccine m-serge-split 2008 [From influenza A (H1N1)] Allergy (Verified 12/17/22 16:46) Rash lactose Allergy (Verified 12/17/22 16:46) Nausea and Vomiting Hx Tetanus, Diphtheria Vaccination/Date Given: No Hx Influenza Vaccination/Date Given: No Hx Pneumococcal Vaccination/Date Given: No Travel Risk - International Travel Have you traveled outside of the country in past 3 weeks: No - Coronavirus Screening Are you exhibiting any of the following symptoms?: No Close contact with a COVID-19 positive Pt in past 14-21 Days: No - Vaccine Status Have you recieved a Covid-19 vaccination: No - Review of Systems Constitutional: No Symptoms Eyes: No Symptoms Respiratory: No Symptoms Cardiac: No Symptoms Abdominal/Gastrointestinal: No Symptoms Musculoskeletal: Injury Skin: No Symptoms Neurological: No Symptoms Endocrine: No Symptoms Hematologic/Lymphatic: No Symptoms - Past Medical History Pertinent Past Medical History: Yes Neurological History: No Pertinent History ENT History: No Pertinent History Cardiac History: No Pertinent History Respiratory History: No Pertinent History Endocrine Medical History: No Pertinent History Musculoskeletal History: Fractures GI Medical History: No Pertinent History History: No Pertinent History Psycho-Social History: Anxiety, Depression Female Reproductive Disorders: No Pertinent History Other Medical History: PMHX: FX RIGHT AND LEFT WRIST A CHILD TREATED WITH CASTING. SX HX: T& A, CHOLECYSTECTOMY, AND D&C - Past Surgical History Past Surgical History: Yes Neuro Surgical History: No Pertinent History Cardiac: No Pertinent History Respiratory: No Pertinent History Gastrointestinal: Cholecystectomy Genitourinary: No Pertinent History Musculoskeletal: No Pertinent History Female Surgical History: No Pertinent History Other Surgical History: tubes in ears - Social History Smoking Status: Current every day smoker How long have you smoked: 9 years Exposure to second hand smoke: No Drug Use: none Patient Lives Alone: No - Female History Hx Last Menstrual Period: CURRENT Hx Now: No - Nursing Vital Signs Nursing Vital Signs: Initial Vital Signs Temperature 97.7 F 12/17/22 16:47 Pulse Rate 98 H 12/17/22 16:47 Respiratory Rate 18 12/17/22 16:47 Blood Pressure 145/72 12/17/22 16:47 O2 Sat by Pulse Oximetry 97 12/17/22 16:47 Pain Scale Pain Intensity 8 - Physical Exam General Appearance: no apparent distress, alert Eyes, Ears, Nose, Throat Exam: normal ENT inspection Neck Exam: normal inspection Cardiovascular/Respiratory Exam: normal breath sounds, regular rate/rhythm Knees Exam: bilateral knee: non-tender, normal inspection, normal range of motion, no evidence of injury Ankle Exam: right ankle: non-tender, bone tenderness (Medial malleolus), limited range of motion, pain, soft tissue tenderness, bilateral ankle: normal inspection, normal range of motion, no evidence of injury Foot Exam: bilateral foot: non-tender, normal inspection, normal range of motion, no evidence of injury Neuro/Tendon Exam: normal sensation, normal motor functions, normal tendon functions Mental Status Exam: alert, oriented x 3, cooperative Skin Exam: normal color SpO2 Interpretation: normal SpO2: 97 O2 Delivery: Room Air Ordered Tests: Active Orders 24 hr Category Date Time Status ANKLE (3 VIEWS) Stat Exams 12/17/22 16:43 Completed - Progress Progress: unchanged Progress Note: 12/17/22 17:58 42-year-old is evaluated for left ankle pain after she accidentally twisted by stepping in a hole. She is having some difficulty ambulation, minimal swelling. Minimal tenderness in the left medial malleolus. X-rays negative for fracture dislocation. Offered pain medication which she declined. Placed in Aircast, weightbearing as tolerated and outpatient Ortho follow-up recommended. - Departure Departure Disposition: Home Clinical Impression: Ankle sprain Condition: Stable Critical Care Time: No Referrals: DARLINE CHINO MD [Primary Care Provider] - Follow Up with PCP/3 days ORTHO - VENKAT ROJAS NP [NON-STAFF PHY W/O PRIVILEGES] - Follow up/PCP as directed (1-2 days for reevaluation) Instructions: Ankle Sprain (DC) Additional Instructions: Take Tylenol/ibuprofen as needed. Intermittent ice application. Weightbearing as tolerated. Follow-up with primary care/orthopedics for reevaluation. Return to ER for any worsening. Prescriptions: Ibuprofen 600 mg PO Q6HPRN PRN 10 Days #20 tablet PRN Reason: Pain
[2022-12-17 18:32] VITALS: BP 138/70; PULSE 90; O2SAT 98
== END 2022-12-17 18:40 | disposition home or self-care (01) ==
LOC: ED 16:15
DX: S93.402A Sprain of unspecified ligament of left ankle, initial encounter (principal); Y93.01 Activity, walking, marching and hiking; Z20.828 Contact with and (suspected) exposure to other viral communicable diseases
CPT/HCPCS: 73610; 99283

== ENCOUNTER 2023-08-14 10:36 | Emergency (ER) | payer OTHER ==
[2023-08-14 10:44] VITALS: RESP 20; TEMP 96.8
[2023-08-14] MEDS ORDERED: Sodium Chloride 0.9% 1000 ML 1,000 ML ONE (11:19)
[2023-08-14] MEDS ORDERED: TORAdol 30 mg Injection IM ONE (11:42)
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
[2023-08-14] MEDS ORDERED: TORAdol 30 mg Injection ONE (11:56)
[2023-08-14 12:08] VITALS: BP 149/94; PULSE 64; O2SAT 97
== END 2023-08-14 12:33 | disposition home or self-care (01) ==
LOC: ED 10:36
DX: H66.92 Otitis media, unspecified, left ear (principal); H92.02 Otalgia, left ear; Z79.899 Other long term (current) drug therapy; Z28.310 Unvaccinated for COVID-19; Z72.0 Tobacco use
CPT/HCPCS: 96372; 99283; J1885

== ENCOUNTER 2023-08-15 20:23 | Emergency (ER) | payer OTHER ==
[2023-08-15 20:53] VITALS: TEMP 97.6
[2023-08-15] MEDS ORDERED: TORAdol 30 mg Injection IM ONE (20:59)
[2023-08-15] MEDS ORDERED: TORAdol 30 mg Injection ONE (21:00)
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
[2023-08-15 21:57] VITALS: RESP 18
[2023-08-15] MEDS ORDERED: NORCO 10-325 MG ONE (21:59)
[2023-08-15 22:05] LABS: Absolute Neutrophil Ct (ANC) 9.42 x10^3/uL (1.4-6.9); BASOPHIL % 0.6 % (0.0-0.4); Basophil (Absolute #) 0.08 x10^3/uL (0-0.4); Eosinophil % 2.6 % (0.00-5.0); Eosinophil (Absolute #) 0.35 x10^3/uL (0-0.5); Hematocrit 44.7 % (35-47); Hemoglobin 14.5 g/dL (12.0-16.0); IMMATURE GRAN # 0.04 x10^3u/L (0.00-0.03); IMMATURE GRAN % 0.3 % (0.00-0.4); Lymphocyte (Absolute #) 2.84 x10^3/uL (1.0-4.6); Lymphocytes % 21.1 % (24.0-44.0); Mean Corpuscular Hemoglobin 31.8 pg (26-32); Mean Corpuscular Hgb Concent. 32.4 g/dL (32-36); Mean Platelet Volume 9.3 fL (7.5-11.0); Monocyte (Absolute #) 0.71 x10^3/uL (0.0-1.3); Monocytes % 5.3 % (0.0-12.0); Neutrophil % 70.1 % (36.0-66.0); Platelet Count 385 x10^3/uL (150-450); Red Blood Count 4.56 x10^6/uL (4.1-5.4); Red Cell Distribution Width 12.7 % (11.5-14.0); White Blood Count 13.4 x10^3/uL (4.0-10.5)
[2023-08-15] MEDS ORDERED: NORCO 10-325 MG PO STA (22:10)
[2023-08-15 22:17] LABS: ANION GAP 13.1 MEQ/L (5-15); Calcium 9.5 mg/dL (8.4-10.2); Creatinine 1 0.56 mg/dL (0.52-1.04); EST GLOMERULAR FILTRATION RATE 129.8 ML/MIN
--- NOTE | 2023-08-15 22:48 | XRAY ---
CLINICAL HISTORY:Left Ear, TNJ, Mastoid Pain COMPARISON:None. TECHNIQUE:CT of the fascial bones has been done in axial plane without contrast. Coronal and sagittal reformatted images have also been acquired. FINDINGS: The external and middle ear cavities show normal morphology, no soft tissue opacification noted. Ear ossicles and scutum are intact. Internal ear on both sides appear unremarkeble. Mastoid air cells are normally aerated on both sides. Both TMJ show normal joint spaces, no erosions. Nasal septum is deviated to left with small nasal spur. No acute fracture or dislocation noted. Mocosal thickening is noted in left frontal, both maxillary and ethmoid sinuses and in left sphenoid sinus. Visualized brain parenchyma appears normal. Visualized salivary glands are normal. Cervical recesses are clear. IMPRESSION: Bilateral maxillary, ethmoid and left sphenoid sinusitis. No other significant pathology is identified. Electronically Signed by: Cruzito Vela MD. (08/15/2023 22:43:56 EST)
[2023-08-15] MEDS ORDERED: ZOFRAN ODT 4 MG PO ONE (22:51)
[2023-08-15] MEDS ORDERED: ZOFRAN ODT 4 MG ONE (22:54)
[2023-08-15 22:55] VITALS: O2SAT 98
[2023-08-15 23:04] VITALS: BP 128/105; PULSE 79
== END 2023-08-15 23:55 | disposition home or self-care (01) ==
LOC: ED 20:23
DX: H66.92 Otitis media, unspecified, left ear (principal); H92.02 Otalgia, left ear; R68.84 Jaw pain; Z79.891 Long term (current) use of opiate analgesic; Z28.310 Unvaccinated for COVID-19; Z72.0 Tobacco use
CPT/HCPCS: 36415; 70486; 80048; 85025; 96372; 99284; J1885; Q0162; A9270-GY